=== PATIENT | male | born 1985 | race Caucasian/White ===

== ENCOUNTER 2025-01-28 11:49 | Emergency (ER) | payer MEDICAID, SELFPAY ==
--- NOTE | 2025-01-28 11:56 | HMH.EDGENADL ---
Discharge Plan Disposition Patient Disposition: Home, Self-Care Condition: Good Prescriptions Prescriptions: New amoxicillin-pot clavulanate 875-125 mg tablet 1 tab PO BID 5 Days Qty: 10 0RF ibuprofen 800 mg tablet 800 mg PO Q8H Qty: 30 0RF amoxicillin-pot clavulanate 875-125 mg tablet 1 tab PO BID 5 Days Qty: 10 0RF Referrals Follow up/Referrals: Emely Barahona, BEN [Referring, Dentistry] - See instructions Activity Restrictions/Add. Instructions Additional Instructions/Restrictions: Please return to the emergency department with any worsening signs or symptoms, please follow-up with PCP and dentist in the upcoming days. Please take your medication as prescribed. Please take antibiotic for 5 days twice daily with food, please utilize your ibuprofen as needed. Clinical Impressions Clinical Impression: Toothache, Dental caries Instructions Patient Instructions: DI for Dental Pain Print Language Print Language: Belarusian Discharge ED Provider: Earnest Wilson General Adult HPI <KENNETH Kate - Last Filed: 01/28/25 12:34> General Chief complaint: Dental/Oral Stated complaint: Toothache Time Seen by Provider: 01/28/25 11:51 Mode of Arrival: EMS Source of Information: Patient Limitations: No Limitations History of Present Illness HPI narrative: 39-year-old male presents to the emergency department via EMS for right-sided dental pain/tooth pain that been going on for the last 3 to 4 days, patient denies any fever chills chest pain shortness of breath nausea vomiting constipation diarrhea, patient is unsure of his past medical history, but does come from [facility] which is a assisted living[facility], patient denies any alcohol tobacco or drug use, initial triage vitals are unremarkable, patient is unsure if he has dental follow-up. Patient states that he would like 800 mg of ibuprofen because he states this helps with the pain and he does not have any at home. Please note that above description of symptoms, in this electronic medical record under categorization of recalled from ER triage doctor by RN are reflective of an initial nursing assessment, however, is not reflective of my full history and physical exam that was personally taken and clarified. Consequentially, this preceding description of symptoms, which may include the patient's categorized chief complaint in the EMR, do not reflect my personal clinical impression, and the ultimate description of history of present illness and patient stated complaints should be deferred to this section of the note. Unless stated otherwise or congruent with this section of the note, additional signs, symptoms, or incongruence should be interpreted as inaccurate with my clinical impression. Related Data Previous Rx's ?Medication ?Instructions ?Recorded amoxicillin 875 mg-potassium 1 tab PO BID 5 days #10 tabs 01/28/25 clavulanate 125 mg tablet amoxicillin 875 mg-potassium 1 tab PO BID 5 days #10 tabs 01/28/25 clavulanate 125 mg tablet ibuprofen 800 mg tablet 800 mg PO Q8H #30 tabs 01/28/25 Allergies Allergy/AdvReac Type Severity Reaction Status Date / Time No Known Allergies Allergy Verified 01/28/25 12:11 [facility] <KENNETH Kate - Last Filed: 01/28/25 12:34> [facility] Disclaimer: The information contained in this section may have been updated after the patient was seen, as this information can be updated by other users. Social History (Updated 01/28/25 @ 12:34 by KENNETH Kate) Smoking Status: Current every day smoker alcohol intake: never current occupational status: other Travel in the last 8 weeks?: None Have you lived/traveled outside [place] in past 30 days?: No Contact w/someone who lives/traveled outside [place] past 30 days?: No Exposure to someone with infectious disease in past 14 days?: No Do you have a fever (greater than 100.4 F or 38 C)?: No Have you tested positive for COVID-19?: No Exposed to someone with COVID-19 in past 14 days?: No Do you have a sore throat?: No Do you have a cough?: No Do you have any weakness?: No Do you have any diarrhea?: No Are you experiencing any unusual bleeding?: No Do you have any muscle aches/pain?: No Do you have any abdominal pain?: No Are you experiencing loss of taste or smell?: No <KENNETH Kate - Last Filed: 01/28/25 12:34> ROS Obtained: Yes All systems reviewed & no additional complaints except as documented Physical Exam <KENNETH Kate - Last Filed: 01/28/25 12:34> General General appearance: alert and in no apparent distress Head Head exam: atraumatic and normocephalic Eye Eye exam: Present PERRL and EOMI ENT ENT exam: Present normal exam, normal oropharynx, mucous membranes moist and other (Numerous dental caries, no obvious periapical or periodontal abscess of the amicable for drainage at this time.) Neck Neck exam: Present normal inspection Chest Chest inspection: Present normal inspection and symmetric chest wall rise Respiratory Respiratory exam: Present normal lung sounds bilaterally; Absent respiratory distress Cardiovascular Cardiovascular exam: Present regular rate and normal rhythm Abdominal Exam Abdominal exam: Present soft; Absent tenderness Extremities Exam Extremities exam: Present normal inspection Neurological Exam Neurological exam: Present alert and oriented X3 Psychiatric Psychiatric exam: Present normal affect Skin Skin exam: Present warm and dry Medical Decision Making <KENNETH Kate - Last Filed: 01/28/25 12:34> Medical Records Medical records reviewed: Yes I reviewed the patient's medical records. Screening: Per USPSTF and CDC recommendations, given the prevalence of disease in our region, it is our hospital?s policy to screen for HIV and viral Hepatitis for all patients aged 18 and over and those with ongoing risk factors. Murtaza Inquiry Pt receiving controlled substance: No Murtaza was queried for this patient: No Vital Signs: 01/28/25 11:59 01/28/25 12:30 Temperature 98.4 F 98.4 F Temperature Source Oral Oral Pulse Rate 66 Pulse Rate [Left Radial] 66 Respiratory Rate 15 16 Blood Pressure 118/76 Blood Pressure [Right Arm] 118/76 Blood Pressure Mean [Right Arm] 90 02 Sat by Pulse Oximetry 98 Oxygen Delivery Method Room Air Orders (Tests/Meds): ED MEDICATIONS Discontinued Medications Generic Name Dose Route Start Last Admin Trade Name Gabriella PRN Reason Stop Dose Admin Ibuprofen 800 mg 01/28/25 11:55 01/28/25 12:05 Ibuprofen 400 Mg Tablet PO 01/28/25 11:56 800 mg ONCE ONE Administration Lidocaine HCl 15 ml 01/28/25 11:55 01/28/25 12:05 Lidocaine 2% Viscous Gina 15ml Udc PO 01/28/25 11:56 15 ml ONCE ONE Administration ORDERS Category Date Time Status HIV Combo Stat Lab 01/28/25 12:12 Ordered Hepatitis C Ab Qual. W/ RFX Stat Lab 01/28/25 12:12 Ordered Medical Decision Narrative: 39-year-old male presents to the emergency department with right-sided dental pain, this been going on for 3 to 4 days, differential diagnose include but not limited to periapical abscess, periodontal abscess, dental caries, among others. I discussed patient case with attending patient Will give patient in 800 mg p.o. ibuprofen for pain, as well as dental ball, patient is otherwise well-appearing, no evidence of any facial cellulitis, no periodontal or periapical abscess to be amicable drainage upon my exam, patient has numerous dental caries, and would benefit from dental referral, will give patient dental referral/dental follow-up, patient voiced understanding agree with current treatment plan/discharge plan, patient will be prescribed 875 mg p.o, twice daily Augmentin, antibiotic prophylaxis for dental infection, patient will take for 5 days or until dental follow-up. Patient voiced understanding and agreement treatment plan/discharge plan, ED return precautions given to the patient. <Earnest Wilson MD - Last Filed: 01/28/25 13:53> Vital Signs: 01/28/25 11:59 01/28/25 12:30 Temperature 98.4 F 98.4 F Temperature Source Oral Oral Pulse Rate 66 Pulse Rate [Left Radial] 66 Respiratory Rate 15 16 Blood Pressure 118/76 Blood Pressure [Right Arm] 118/76 Blood Pressure Mean [Right Arm] 90 02 Sat by Pulse Oximetry 98 Oxygen Delivery Method Room Air Orders (Tests/Meds): ED MEDICATIONS Discontinued Medications Generic Name Dose Route Start Last Admin Trade Name Freq PRN Reason Stop Dose Admin Ibuprofen 800 mg 01/28/25 11:55 01/28/25 12:05 Ibuprofen 400 Mg Tablet PO 01/28/25 11:56 800 mg ONCE ONE Administration Lidocaine HCl 15 ml 01/28/25 11:55 01/28/25 12:05 Lidocaine 2% Viscous Gina 15ml Udc PO 01/28/25 11:56 15 ml ONCE ONE Administration ORDERS Category Date Time Status HIV Combo Stat Lab 01/28/25 12:12 Ordered Hepatitis C Ab Qual. W/ RFX Stat Lab 01/28/25 12:12 Ordered Medical Decision Narrative: 39-year-old male presents to the emergency department with right-sided dental pain, this been going on for 3 to 4 days, differential diagnose include but not limited to periapical abscess, periodontal abscess, dental caries, among others. I discussed patient case with attending patient Dr.Karsner Will give patient in 800 mg p.o. ibuprofen for pain, as well as dental ball, patient is otherwise well-appearing, no evidence of any facial cellulitis, no periodontal or periapical abscess to be amicable drainage upon my exam, patient has numerous dental caries, and would benefit from dental referral, will give patient dental referral/dental follow-up, patient voiced understanding agree with current treatment plan/discharge plan, patient will be prescribed 875 mg p.o, twice daily Augmentin, antibiotic prophylaxis for dental infection, patient will take for 5 days or until dental follow-up. Patient voiced understanding and agreement treatment plan/discharge plan, ED return precautions given to the patient. I was consulted by the [facility], and we discussed the complexity of the problems being addressed. I approve the treatment and management plan for this patient's care in the emergency department, thus performing a substantive portion of the medical decision making. Earnest Wilson MD Critical Care <KENNETH Kate - Last Filed: 01/28/25 12:34> Critical Care Time Critical Care Time: No
[2025-01-28 11:59] VITALS: BP 118/76; PULSE 66; RESP 15; TEMP 36.9; O2SAT 98; BMI 21.7
[2025-01-28] MEDS: IBUPROFEN 400 MG TABLET 800 MG PO (12:05)
[2025-01-28] MEDS: LIDOCAINE 2% VISCOUS SOL 15ML UDC 15 ML PO (12:05)
--- OUTSIDE RECORDS SUMMARY | 2025-01-28 12:25 | XMS_ITS | Clinical Summary ---
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 Name Role Phone Lucrecia Lozano Primary Care Physician [phone] Conditions or Problems Problem Name Problem Code Onset Date Status Entry Date Provider Comment Standard Description Annotate Body mass index (BMI) 20.0-20.9; adult Z68.20 (ICD-10-CM ) 07/12 Active 07/13 [facility] Body mass index [BMI] 20.0-20.9, adult Body mass index (BMI) 19 or less; adult Z68.1 (ICD-10-CM ) 01/11 Correction 01/20 [facility] Body mass index [BMI] 19.9 or less, adult Counseling for nutrition Z71.3 (ICD-10-CM ) 01/11 Inactive 01/20 [facility] Dietary counseling and surveillance Body mass index (BMI) 19 or less; adult Z68.1 (ICD-10-CM ) 01/11 Removed 01/20 [facility] Body mass index [BMI] 19.9 or less, adult Counseling for nutrition Z71.3 (ICD-10-CM ) 01/11 Inactive 01/20 [facility] Dietary counseling and surveillance Body mass index (BMI) 19 or less; adult Z68.1 (ICD-10-CM ) Correction [facility] Body mass index [BMI] 19.9 or less, adult Counseling for nutrition Z71.3 (ICD-10-CM ) 12/12 Inactive 12/12 [facility] 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 Dietary counseling and surveillance Unspecified superficial injury of right ring finger, sequela [id number] (SNOMED CT) 11/28 Active 11/28 [facility] 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 Superficial injury of finger Counseling for nutrition Z71.3 (ICD-10-CM ) 11/28 Inactive 11/28 [facility] 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 Dietary counseling and surveillance Counseling for nutrition Z71.3 (ICD-10-CM ) Inactive Lucrecia [place] PMHNP Dietary counseling and surveillance Body mass index (BMI) 19 or less; adult Z68.1 (ICD-10-CM ) Removed Lucrecia Selwyn PMHNP Body mass index [BMI] 19.9 or less, adult Body mass index (BMI) 21.0-21.9; adult Z68.21 (ICD-10-CM ) 10/25 Correction 10/26 [place] Selwyn PMHNP Body mass index [BMI] 21.0-21.9, adult Decreased body mass index 7568434 (SNOMED CT) 02/15 Correction 02/15 Lucrecia Selwyn PMHNP Decreased body mass index Weight loss 95200330 (SNOMED CT) 02/15 Active 02/15 Olga Reena DO Weight loss Decreased body mass index 2592652 (SNOMED CT) 02/15 Removed 02/15 Olga Reena DO Decreased body mass index Counseling for nutrition Z71.3 (ICD-10-CM ) 01/20 Inactive 01/20 Lucrecia [place] PMHNP Dietary counseling and surveillance Body mass index (BMI) 21.0-21.9; adult Z68.21 (ICD-10-CM ) 10/25 Removed 10/26 Lucrecia Selwyn PMHNP Body mass index [BMI] 21.0-21.9, adult Body mass index (BMI) 21.0-21.9; adult Z68.21 (ICD-10-CM ) 10/18 Correction 10/18 Lucrecia Samano PMHNP Body mass index [BMI] 21.0-21.9, adult Substance Abuse 70324918 (SNOMED CT) 10/26 Active 10/26 [facility] Depression 96295508 (SNOMED CT) 10/26 Active 10/26 Lucreciahaydee Samano HN Depressive disorder Anxiety Disorder 543333088 (SNOMED CT) 10/26 Active 10/26 Lucrecia Samano [facility] Anxiety disorder Body mass index (BMI) 21.0-21.9; adult Z68.21 (ICD-10-CM ) 10/18 Removed 10/18 Olga Reena DO Body mass index [BMI] 21.0-21.9, adult Body mass index (BMI) 21.0-21.9; adult Z68.21 (ICD-10-CM ) 10/18 Correction 10/18 Olga Reena DO Body mass index [BMI] 21.0-21.9, adult Body mass index (BMI) 21.0-21.9; adult Z68.21 (ICD-10-CM ) 10/18 Removed 10/18 Olga Reena DO Body mass index [BMI] 21.0-21.9, adult Counseling for nutrition Z71.3 (ICD-10-CM ) 10/18 Inactive 10/18 Olga Reena DO Dietary counseling and surveillance Body mass index (BMI) 22.0-22.9; adult Z68.22 (ICD-10-CM ) 07/26 Correction 07/26 Olga Reena DO Body mass index [BMI] 22.0-22.9, adult Weight loss 46036991 (SNOMED CT) 10/18 Active 10/18 Olga Reena DO Weight loss Counseling for nutrition Z71.3 (ICD-10-CM ) 07/26 Inactive 07/26 Shalonda Parada [facility] Dietary counseling and surveillance Body mass index (BMI) 22.0-22.9; adult Z68.22 (ICD-10-CM ) 07/26 Removed 07/26 Shalonda Ankit Randolphon [employer]OCIATE Body mass index [BMI] 22.0-22.9, adult Body mass index (BMI) 23.0-23.9; adult Z68.23 (ICD-10-CM ) Correction Shalonda Ankit Randolphon [employer]ER ASSOCIATE Body mass index [BMI] 23.0-23.9, adult Body mass index (BMI) 23.0-23.9; adult Z68.23 (ICD-10-CM ) Removed Olga Reena DO Body mass index [BMI] 23.0-23.9, adult Body mass index (BMI) 21.0-21.9; adult Z68.21 (ICD-10-CM ) Correction Olga Reena DO Body mass index [BMI] 21.0-21.9, adult Counseling for nutrition Z71.3 (ICD-10-CM ) Inactive Shalonda Ankit Randolphon [employer]IATE Dietary counseling and surveillance Body mass index (BMI) 21.0-21.9; adult Z68.21 (ICD-10-CM ) Removed Shalonda Ankit Randolphon FEEDER ASSOCIATE Body mass index [BMI] 21.0-21.9, adult Body mass index (BMI) 23.0-23.9; adult Z68.23 (ICD-10-CM ) 01/18 Correction 01/18 Shalonda G Karma [employer] ASS[employer]IATE Body mass index [BMI] 23.0-23.9, adult Body mass index (BMI) 23.0-23.9; adult Z68.23 (ICD-10-CM ) 01/18 Removed 01/18 Shalonda G Goldthwaite [employer]ER ASSOCIATE Body mass index [BMI] 23.0-23.9, adult Counseling for nutrition Z71.3 (ICD-10-CM ) 01/18 Inactive 01/18 Shalonda MARTINEZ Dietary counseling and surveillance Body mass index (BMI) 21.0-21.9; adult Z68.21 (ICD-10-CM ) 11/18 Correction 11/19 Shalonda MARTINEZ Body mass index [BMI] 21.0-21.9, adult Counseling for nutrition Z71.3 (ICD-10-CM ) 12/16 Inactive 12/17 Nirav Carvalho MD Dietary counseling and surveillance Counseling for nutrition Z71.3 (ICD-10-CM ) 11/18 Inactive 11/19 Nirav Carvalho MD Dietary counseling and surveillance Body mass index (BMI) 21.0-21.9; adult Z68.21 (ICD-10-CM ) 11/18 Removed 11/19 Nirav Carvalho MD Body mass index [BMI] 21.0-21.9, adult Body mass index (BMI) 21.0-21.9; adult Z68.21 (ICD-10-CM ) Correction Nirav Carvalho MD Body mass index [BMI] 21.0-21.9, adult Counseling for nutrition Z71.3 (ICD-10-CM ) 10/20 Inactive 10/21 Olga Reena DO Dietary counseling and surveillance Counseling for nutrition Z71.3 (ICD-10-CM ) 10/20 Inactive 10/20 Olga Reena DO Dietary counseling and surveillance Tobacco User 545253700 (SNOMED CT) 10/20 Active 10/20 Olga Reena DO Tobacco user Counseling for nutrition Z71.3 (ICD-10-CM ) 08/06 Inactive 08/06 Shalonda MARITNEZ Dietary counseling and surveillance Counseling for nutrition Z71.3 (ICD-10-CM ) Inactive Olga Reena DO Dietary counseling and surveillance Body mass index (BMI) 21.0-21.9; adult Z68.21 (ICD-10-CM ) Removed Olga Reena DO Body mass index [BMI] 21.0-21.9, adult Body mass index (BMI) 21.0-21.9; adult Z68.21 (ICD-10-CM ) 03/06 Correction 03/06 Olga Reena DO Body mass index [BMI] 21.0-21.9, adult Counseling for nutrition Z71.3 (ICD-10-CM ) 03/06 Inactive 03/06 Shalonda G Goldthwaite [employer]IATE Dietary counseling and surveillance Body mass index (BMI) 21.0-21.9; adult Z68.21 (ICD-10-CM ) 03/06 Removed 03/06 Shalonda G Goldthwaite FEEDER ASSOCIATE Body mass index [BMI] 21.0-21.9, adult Body mass index (BMI) 22.0-22.9; adult Z68.22 (ICD-10-CM ) 11/28 Correction 11/28 Shalonda G Karma FEEDER ASSOCIATE Body mass index [BMI] 22.0-22.9, adult Counseling for nutrition Z71.3 (ICD-10-CM ) 11/28 Inactive 11/28 Shalonda G Karma FE[employer]ER ASSOCIATE Dietary counseling and surveillance Body mass index (BMI) 22.0-22.9; adult Z68.22 (ICD-10-CM ) 11/28 Removed 11/28 Shalonda G Karma FEEDER ASSOCIATE Body mass index [BMI] 22.0-22.9, adult Body mass index (BMI) 22.0-22.9; adult Z68.22 (ICD-10-CM ) 10/21 Correction 10/21 Shalonda G Karma FEEDER ASSOCIATE Body mass index [BMI] 22.0-22.9, adult Body mass index (BMI) 22.0-22.9; adult Z68.22 (ICD-10-CM ) 10/21 Removed 10/21 Olga Reena DO Body mass index [BMI] 22.0-22.9, adult Marijuana abuse 64208549 (SNOMED CT) 10/21 Active 10/21 Olga Reena DO Harmful pattern of use of cannabis Alcohol use 809687 (SNOMED CT) 10/21 Active 10/21 Olga Reena DO Current drinker Body mass index (BMI) 23.0-23.9; adult Z68.23 (ICD-10-CM ) 08/07 Correction 08/07 Olga Reena DO Body mass index [BMI] 23.0-23.9, adult Counseling for nutrition Z71.3 (ICD-10-CM ) 08/07 Inactive 08/07 Shalonda MARTINEZ Dietary counseling and surveillance Body mass index (BMI) 23.0-23.9; adult Z68.23 (ICD-10-CM ) 08/07 Removed 08/07 Shalonda NAVARROP Body mass index [BMI] 23.0-23.9, adult Body mass index (BMI) 23.0-23.9; adult Z68.23 (ICD-10-CM ) Correction Shalonda MARTINEZ Body mass index [BMI] 23.0-23.9, adult Body mass index (BMI) 23.0-23.9; adult Z68.23 (ICD-10-CM ) Removed Nabeelderrell Castropat [place] Body mass index [BMI] 23.0-23.9, adult Body mass index (BMI) 23.0-23.9; adult Z68.23 (ICD-10-CM ) Correction Nabeel Donovan APRN Body mass index [BMI] 23.0-23.9, adult Influenza vaccination given [id number] (SNOMED CT) Active Nabeel Donovan 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 Medication given Body mass index (BMI) 23.0-23.9; adult Z68.23 (ICD-10-CM ) Removed Shaila Lopez MA Body mass index [BMI] 23.0-23.9, adult Body mass index (BMI) 21.0-21.9; adult Z68.21 (ICD-10-CM ) 02/07 Correction 02/07 Shaila Martinezra [facility] Body mass index [BMI] 21.0-21.9, adult Counseling for nutrition Z71.3 (ICD-10-CM ) 02/07 Inactive 02/07 Shalonda Ankit Parada [employer] Dietary counseling and surveillance Body mass index (BMI) 21.0-21.9; adult Z68.21 (ICD-10-CM ) 02/07 Removed 02/07 Shalonda G Goldthwaite FEEDER ASSOCIATE Body mass index [BMI] 21.0-21.9, adult Body mass index (BMI) 21.0-21.9; adult Z68.21 (ICD-10-CM ) 10/24 Correction 10/24 Shalonda Ankit Parada FEEDER ASSOCIATE Body mass index [BMI] 21.0-21.9, adult Body mass index (BMI) 21.0-21.9; adult Z68.21 (ICD-10-CM ) 10/24 Removed 10/24 Olga Reena DO Body mass index [BMI] 21.0-21.9, adult Body mass index (BMI) 21.0-21.9; adult Z68.21 (ICD-10-CM ) 10/24 Correction 10/24 Olga Reena DO Body mass index [BMI] 21.0-21.9, adult Body mass index (BMI) 21.0-21.9; adult Z68.21 (ICD-10-CM ) 10/24 Removed 10/24 Olga Reena DO Body mass index [BMI] 21.0-21.9, adult Counseling for nutrition Z71.3 (ICD-10-CM ) 10/24 Inactive 10/24 Olga Reena DO Dietary counseling and surveillance Body mass index (BMI) 24.0-24.9; adult Z68.24 (ICD-10-CM ) 08/02 Correction 08/02 Olga Reena DO Body mass index [BMI] 24.0-24.9, adult Body mass index (BMI) 24.0-24.9; adult Z68.24 (ICD-10-CM ) 08/02 Removed 08/02 Shalonda G Goldthwaite FEEDER ASSOCIATE Body mass index [BMI] 24.0-24.9, adult Counseling for nutrition Z71.3 (ICD-10-CM ) 08/02 Inactive 08/02 Shalonda G Goldthwaite FEEDER ASSOCIATE Dietary counseling and surveillance Body mass index (BMI) 25.0-25.9; adult Z68.25 (ICD-10-CM ) Correction Shalonda G Goldthwaite FEEDER ASSOCIATE Body mass index [BMI] 25.0-25.9, adult Flu vaccine 36011625 (SNOMED CT) Inactive Esteban Coombs RN Administration of influenza vaccine Counseling for nutrition Z71.3 (ICD-10-CM ) Inactive Radha Edmondson DO Dietary counseling and surveillance Body mass index (BMI) 25.0-25.9; adult Z68.25 (ICD-10-CM ) Removed Radha Edmondson DO Body mass index [BMI] 25.0-25.9, adult Body mass index (BMI) 25.0-25.9; adult Z68.25 (ICD-10-CM ) 03/02 Correction 03/02 aRdha Edmondson DO Body mass index [BMI] 25.0-25.9, adult Counseling for nutrition Z71.3 (ICD-10-CM ) 03/02 Inactive 03/02 Shalonda G Karma FE[employer]ER ASSOCIATE Dietary counseling and surveillance Body mass index (BMI) 25.0-25.9; adult Z68.25 (ICD-10-CM ) 03/02 Removed 03/02 Shalonda G Goldthwaite FEEDER ASSOCIATE Body mass index [BMI] 25.0-25.9, adult Body mass index (BMI) 25.0-25.9; adult Z68.25 (ICD-10-CM ) 11/03 Correction 11/03 Shalonda G Karma FEEDER ASSOCIATE Body mass index [BMI] 25.0-25.9, adult Counseling for nutrition Z71.3 (ICD-10-CM ) 11/03 Inactive 11/03 Shalonda G Goldthwaite FEEDER ASSOCIATE Dietary counseling and surveillance Body mass index (BMI) 25.0-25.9; adult Z68.25 (ICD-10-CM ) 11/03 Removed 11/03 Shalonda G Karma FEEDER ASSOCIATE Body mass index [BMI] 25.0-25.9, adult Body mass index (BMI) 25.0-25.9; adult Z68.25 (ICD-10-CM ) 10/09 Correction 10/09 Shalonda G Goldthwaite FEEDER ASSOCIATE Body mass index [BMI] 25.0-25.9, adult Depression 98214200 (SNOMED CT) 11/03 Active 11/03 Shalonda G Goldthwaite FEEDER ASSOCIATE Depressive disorder Body mass index (BMI) 25.0-25.9; adult Z68.25 (ICD-10-CM ) 10/09 Removed 10/09 Ye Pringle DO Body mass index [BMI] 25.0-25.9, adult Body mass index (BMI) 28.0-28.9; adult Z68.28 (ICD-10-CM ) 08/14 Correction 08/14 Ye Pringle DO Body mass index [BMI] 28.0-28.9, adult Hypertensio n 30586894 (SNOMED CT) 10/09 Active 10/09 Ye Pringle DO Hypertensive disorder Counseling for nutrition Z71.3 (ICD-10-CM ) 08/14 Inactive 08/14 Shalonda G Karma FE[employer]ER ASSOCIATE Dietary counseling and surveillance Body mass index (BMI) 28.0-28.9; adult Z68.28 (ICD-10-CM ) 08/14 Removed 08/14 Shalonda G Karma FEEDER ASSOCIATE Body mass index [BMI] 28.0-28.9, adult Body mass index (BMI) 26.0-26.9; adult Z68.26 (ICD-10-CM ) 08/13 Correction 08/13 Shalonda G Karma FEEDER ASSOCIATE Body mass index [BMI] 26.0-26.9, adult Counseling for nutrition Z71.3 (ICD-10-CM ) 07/10 Inactive 07/10 Kimberly Jean APRN Dietary counseling and surveillance Counseling for nutrition Z71.3 (ICD-10-CM ) 08/13 Inactive 08/13 Shalonda G Karma [employer]OCIATE Dietary counseling and surveillance Body mass index (BMI) 26.0-26.9; adult Z68.26 (ICD-10-CM ) 08/13 Removed 08/13 Shalonda G Karma FEEDER ASSOCIATE Body mass index [BMI] 26.0-26.9, adult Body mass index (BMI) 23.0-23.9; adult Z68.23 (ICD-10-CM ) 03/20 Correction 03/20 Shalonda G Karma FEEDER ASSOCIATE Body mass index [BMI] 23.0-23.9, adult Counseling for nutrition Z71.3 (ICD-10-CM ) 03/20 Inactive 03/20 Shalonda G Karma FEEDER ASSOCIATE Dietary counseling and surveillance Body mass index (BMI) 23.0-23.9; adult Z68.23 (ICD-10-CM ) 03/20 Removed 03/20 Shalonda G Karma FE[employer]ER ASSOCIATE Body mass index [BMI] 23.0-23.9, adult Body mass index (BMI) 24.0-24.9; adult Z68.24 (ICD-10-CM ) 12/19 Correction 12/19 Shalonda G Karma [employer]ER ASSOCIATE Body mass index [BMI] 24.0-24.9, adult Counseling for nutrition Z71.3 (ICD-10-CM ) 12/19 Inactive 12/19 Shalonda G Goldthwaite FE[employer]ER ASSOCIATE Dietary counseling and surveillance Body mass index (BMI) 24.0-24.9; adult Z68.24 (ICD-10-CM ) 12/19 Removed 12/19 Shalonda G Goldthwaite FEEDER ASSOCIATE Body mass index [BMI] 24.0-24.9, adult Body mass index (BMI) 24.0-24.9; adult Z68.24 (ICD-10-CM ) 12/12 Correction 12/12 Shalonda Ankit Karma NAVARROP Body mass index [BMI] 24.0-24.9, adult Vitamin D deficiency 09163641 (SNOMED CT) 12/12 Active 12/12 Cain Patel MD Vitamin D deficiency Body mass index (BMI) 24.0-24.9; adult Z68.24 (ICD-10-CM ) 12/12 Removed 12/12 Cain Patel MD Body mass index [BMI] 24.0-24.9, adult Body mass index (BMI) 22.0-22.9; adult Z68.22 (ICD-10-CM ) 09/12 Correction 09/12 Cain Patel MD Body mass index [BMI] 22.0-22.9, adult Body mass index (BMI) 22.0-22.9; adult Z68.22 (ICD-10-CM ) 09/12 Removed 09/12 Cain Patel MD Body mass index [BMI] 22.0-22.9, adult Body mass index (BMI) 21.0-21.9; adult Z68.21 (ICD-10-CM ) 08/16 Correction 08/16 Cain Patel MD Body mass index [BMI] 21.0-21.9, adult Counseling for nutrition Z71.3 (ICD-10-CM ) 08/16 Inactive 08/16 Shalonda NAVARROP Dietary counseling and surveillance Body mass index (BMI) 21.0-21.9; adult Z68.21 (ICD-10-CM ) 08/16 Removed 08/16 Shalonda Ankit Randolphon [employer] Body mass index [BMI] 21.0-21.9, adult Body mass index (BMI) 20.0-20.9; adult Z68.20 (ICD-10-CM ) 08/16 Correction 08/16 Shalonda Ankit Randolphon [employer]ER ASSOCIATE Body mass index [BMI] 20.0-20.9, adult Body mass index (BMI) 20.0-20.9; adult Z68.20 (ICD-10-CM ) 08/16 Removed 08/16 Ladonna Kwok MD Body mass index [BMI] 20.0-20.9, adult Physical exam 1488082 (SNOMED CT) 08/16 Inactive 08/16 Ladonna Kwok MD Physical examination Counseling for nutrition Z71.3 (ICD-10-CM ) 08/16 Inactive 08/16 Ladonna Kwok MD Dietary counseling and surveillance Body mass index (BMI) 20.0-20.9; adult Z68.20 (ICD-10-CM ) 07/02 Correction 07/02 Ladonna Kwok MD Body mass index [BMI] 20.0-20.9, adult Counseling for nutrition Z71.3 (ICD-10-CM ) 07/02 Inactive 07/02 Shalonda Randolphon [employer]IATE Dietary counseling and surveillance Body mass index (BMI) 20.0-20.9; adult Z68.20 (ICD-10-CM ) 07/02 Removed 07/02 Shalonda G Karma [employer]OCIATE Body mass index [BMI] 20.0-20.9, adult Body mass index (BMI) 21.0-21.9; adult Z68.21 (ICD-10-CM ) 12/24 Correction 12/24 Shalonda G Karma [employer]ER ASS[employer]IATE Body mass index [BMI] 21.0-21.9, adult Body mass index (BMI) 21.0-21.9; adult Z68.21 (ICD-10-CM ) 12/24 Removed 12/24 Alva Dee APRN Body mass index [BMI] 21.0-21.9, adult Body mass index (BMI) 21.0-21.9; adult Z68.21 (ICD-10-CM ) 12/06 Correction 12/06 Alva Dee APRN Body mass index [BMI] 21.0-21.9, adult Counseling for nutrition Z71.3 (ICD-10-CM ) 12/06 Inactive 12/06 Shalonda G Karma [employer] Dietary counseling and surveillance Body mass index (BMI) 21.0-21.9; adult Z68.21 (ICD-10-CM ) 12/06 Removed 12/06 Shalonda MARTINEZ Body mass index [BMI] 21.0-21.9, adult Acute gouty arthropathy - ? OF 475960592 (SNOMED CT) 12/10 Resolved 12/10 Madina Munoz APRN Gouty arthropathy Acute gouty arthropathy - ? OF 360244275 (SNOMED CT) 12/10 Removed 12/10 Madina Munoz APRN Gouty arthropathy Seizure disorder 436821980 (SNOMED CT) Active Madina Munoz APRN Seizure disorder Myocardial infarction, anterior wall - HX OF 64977617 (SNOMED CT) Active Madina Munoz APRN Myocardial infarction Hx of CVA - R HEMIPARESIS 103993370 (SNOMED CT) Active Madina Munoz APRN History of cerebrovascular accident Other and unspecified mitral valve diseases 58752098 (SNOMED CT) Active Madina Munoz APRN Mitral valve disorder ELEVATED BP READING WITHOUT DX HYPERTENSIO N R03.0 (ICD-10-CM ) 07/19 Resolved 07/19 Madina Munoz APRN Elevated blood-pressure reading, without diagnosis of hypertension KNEE PAIN, RIGHT 85661811 (SNOMED CT) 08/03 Resolved 08/03 Madina Munoz APRN Knee pain ABDOMINAL PAIN 33874054 (SNOMED CT) 08/23 Resolved 08/23 Madina Munoz APRN Abdominal pain DIARRHEA 90830920 (SNOMED CT) 08/23 Resolved 08/23 Madina Munoz APRN Diarrhea Cardiomyopa thy 68993564 (SNOMED CT) 08/23 Active 08/23 Madina Munoz APRN Cardiomyopathy Drug abuse, hx of 780884551 (SNOMED CT) 08/23 Active 08/23 Madina Munoz APRN History of drug abuse ENCOUNTERS UNSPECIFIED ADMINISTRAT HAIDER PURPOSE Z02.89 (ICD-10-CM ) 02/06 Resolved 02/06 Madina Munoz APRN Encounter for other administrative examinations Tobacco abuse 01126085 (SNOMED CT) Active Madina Munoz APRN Tobacco dependence syndrome Anxiety 654063601 (SNOMED CT) Active Merlin Hernandez MD Anxiety disorder ENCOUNTERS UNSPECIFIED ADMINISTRAT HAIDER PURPOSE Z02.89 (ICD-10-CM ) 02/06 Removed 02/06 Merlin Hernandez MD Encounter for other administrative examinations ANOXIC BRAIN DAMAGE 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 (SNOMED CT) 02/06 Active 02/06 Merlin Hernandez MD Anoxic encephalopathy DRUG ABUSE 96830283 (SNOMED CT) 08/23 Inactive 08/23 Merlin Hernandez MD Drug abuse HEART MURMUR, SYSTOLIC 01744447 (SNOMED CT) 08/23 Inactive 08/23 Merlin Hernandez MD Systolic murmur DIARRHEA 21906617 (SNOMED CT) 08/23 Removed 08/23 Merlin Hernandez MD Diarrhea ABDOMINAL PAIN 91512645 (SNOMED CT) 08/23 Removed 08/23 Merlin Hernandez MD Abdominal pain KNEE PAIN, RIGHT 82522319 (SNOMED CT) 08/03 Removed 08/03 Madina Munoz APRN Knee pain CERVICAL MUSCLE STRAIN 932572619 (SNOMED CT) 07/19 Resolved 07/19 Madina Munoz APRN Strain of neck muscle CERVICAL MUSCLE STRAIN 128710645 (SNOMED CT) 07/19 Removed 07/19 Madina Munoz APRN Strain of neck muscle ELEVATED BP READING WITHOUT DX HYPERTENSIO N R03.0 (ICD-10-CM ) 07/19 Removed 07/19 Madina Munoz APRN Elevated blood-pressure reading, without diagnosis of hypertension Medications Medication Instructions Start Date Stop Date Generic Name NDC Provider IBU 800 MG TABS Take 1 tablet by mouth every eight hours as directed for 10 days for DENTAL PAIN. ibuprofen [id number] Gisell Diana on DMD RA VITAMIN C 250 MG TABS Take 1 tablet by mouth single dose ascorbic acid (vitamin c) 56269076580 [facility] 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 LISINOPRIL 10 MG TABS Take 1 tablet by mouth once a day TAKE ONE TABLET BY MOUTH DAILY lisinopril 56492238490 [facility] 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 OMEPRAZOLE 20 MG CPDR Take 1 capsule by mouth once a day 11/28 omeprazole 88871620552 [facility] 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 CARVEDILOL 25 MG TABS Take 1 tablet by mouth twice a day TAKE ONE TABLET BY MOUTH TWICE A DAY carvedilol 30921055948 [facility] 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 ASPIRIN LOW DOSE 81 MG TBEC Take 1 tablet by mouth once a day aspirin 41900407520 [facility] 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 FLUOXETINE HCL 20 MG CAPS Take 1 capsule by mouth once a day 08/21 fluoxetine 58584079227 Lucrecia Samano PMHNP MIRTAZAPINE 45 MG TABS Take 1 tablet by mouth at bedtime mirtazapine 85001480087 Lucrecia Samano PMHNP FLUOXETINE HCL 20 MG CAPS Take 1 capsule by mouth once a day 07/19 fluoxetine 46783590823 Lucreciabandar Samano PMHNP MIRTAZAPINE 45 MG TABS TAKE ONE TABLET BY MOUTH AT BEDTIME mirtazapine 52694250391 Lucrecia Samano PMHNP OMEPRAZOLE 20 MG CPDR Take 1 capsule by mouth once a day omeprazole 81777859904 Olga Reena DO LISINOPRIL 2.5 MG TABS TAKE ONE TABLET BY MOUTH DAILY lisinopril 66184599458 Olga Reena DO MIRTAZAPINE 45 MG TABS Take 1 tablet by mouth at bedtime 01/14 mirtazapine 19657136503 Nona Hayes 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 BCADM MIRTAZAPINE 45 MG TABS TAKE ONE TABLET BY MOUTH AT BEDTIME mirtazapine 52443254089 Lucreciabandar Samano PMHNP MIRTAZAPINE 45 MG TABS Take 1 tablet by mouth at bedtime mirtazapine 33150020082 Lucrecia Samano PMHNP FLUOXETINE HCL 20 MG CAPS Take 1 capsule by mouth once a day fluoxetine 97226701902 Lucrecia Samano PMHNP LISINOPRIL 2.5 MG TABS TAKE ONE TABLET BY MOUTH DAILY lisinopril 03990716852 Olga Reena DO FLUOXETINE HCL 20 MG CAPS Take 1 capsule by mouth once a day 01/21 fluoxetine 91359136255 Shalonda Parada FEEDER ASSOCIATE LISINOPRIL 2.5 MG TABS Take 1 tablet by mouth once a day 08/24 lisinopril 13531507108 Diana Ny 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 LISINOPRIL 2.5 MG TABS TAKE ONE TABLET BY MOUTH DAILY lisinopril 79578445362 Olga Reena DO LISINOPRIL 2.5 MG TABS Take 1 tablet by mouth once a day lisinopril 94188719320 Olga Reena DO LISINOPRIL 2.5 MG TABS Take 1 tablet by mouth once a day lisinopril 15378231396 Clara Ishan NE FLUOXETINE HCL 20 MG CAPS Take 1 capsule by mouth once a day 10/09 fluoxetine 39656439626 Shalonda Parada FEEDER ASSOCIATE FLUOXETINE HCL 20 MG CAPS Take 1 capsule by mouth once a day 07/17 fluoxetine 93867086390 Shalonda Parada FEEDER ASSOCIATE MIRTAZAPINE 45 MG TABS Take 1 tablet by mouth at bedtime mirtazapine 44224871203 Shalonda Parada FEEDER ASSOCIATE LISINOPRIL 2.5 MG TABS Take 1 tablet by mouth once a day lisinopril 33104575967 Alva Benjamin APRN MIRTAZAPINE 45 MG TABS Take 1 tablet by mouth every night 01/15 mirtazapine 29329664112 Nirav Carvalho MD BUSPIRONE HCL 5 MG TABS Take 1 tablet by mouth twice a day for anxiety 12/16 buspirone 99075214099 Nirav Carvalho MD MIRTAZAPINE 45 MG TABS 11/18 mirtazapine 38588776244 Emily Joel MA MIRTAZAPINE 45 MG TABS Take 1 tablet by mouth every night 12/18 mirtazapine 82875568256 Nirav Carvalho MD BUSPIRONE HCL 5 MG TABS Take 1 tablet by mouth twice a day for anxiety 12/18 buspirone 76779254630 Nirav Carvalho MD MIRTAZAPINE 45 MG TABS mirtazapine 04039703916 Emily Joel MA FLUOXETINE HCL 20 MG CAPS Take 1 capsule by mouth twice a day fluoxetine [id number] Olga Reena DO CARVEDILOL 25 MG TABS Take 1 tablet by mouth twice a day TAKE ONE TABLET BY MOUTH TWICE A DAY carvedilol [id number] Olga Reena DO ASPIRIN EC 81 MG TBEC Take 1 tablet by mouth once a day aspirin [id number] Olga Reena DO calcium citrate-vitamin D3 250 mg-5 mcg (200 unit) tablet Take 1 tablet by mouth once a day 10/20 calcium citrate-vitamin d3 [id number] Radha Carr MA FLUOXETINE HCL 20 MG CAPS Take 1 capsule by mouth twice a day 10/22 fluoxetine [id number] Michael Bang APRN MIRTAZAPINE 45 MG TABS Take 1 tablet by mouth every night 10/22 mirtazapine [id number] Michael Bang APRN CARVEDILOL 25 MG TABS TAKE ONE TABLET BY MOUTH TWICE A DAY 08/25 carvedilol [id number] 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 CARVEDILOL 25 MG TABS Take 1 tablet by mouth twice a day TAKE ONE TABLET BY MOUTH TWICE A DAY carvedilol [id number] Salome Moya 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 CARVEDILOL 25 MG TABS TAKE ONE TABLET BY MOUTH TWICE A DAY carvedilol [id number] Olga Reena DO LISINOPRIL 2.5 MG TABS Take 1 tablet by mouth once a day lisinopril [id number] Olga Reena DO calcium citrate-vitamin D3 250 mg-5 mcg (200 unit) tablet Take 1 tablet by mouth once a day calcium citrate-vitamin d3 87743601884 Radha Carr MA VITAMIN C 250 MG TABS Take 1 tablet by mouth single dose ascorbic acid (vitamin c) 44239066148 Radha Carr MA CARVEDILOL 25 MG TABS TAKE ONE TABLET BY MOUTH TWICE A DAY 07/28 carvedilol 22490169844 Jennifer Aguero APRN LISINOPRIL 2.5 MG TABS Take 1 tablet by mouth once a day lisinopril 17801587648 Jennifer Laci BLANKENSHIPN MIRTAZAPINE 45 MG TABS Take 1 tablet by mouth every night mirtazapine 31279866419 Shalonda MARTINEZ CARVEDILOL 25 MG TABS Take 1 tablet by mouth twice a day 11/18 carvedilol 71919059761 Jennifer Aguero APRN VITAMIN D 50 MCG (2000 UT) TABS Take 1 tablet by mouth once a day cholecalciferol (vitamin d3) 46843214114 Jennifer Aguero APRN FLUOXETINE HCL 20 MG CAPS Take 1 capsule by mouth twice a day fluoxetine 50101174570 Shalonda MARTINEZ ASPIRIN EC 81 MG TBEC Take 1 tablet by mouth once a day aspirin 63931317077 Jennifer Laci BLANKENSHIPN KEPPRA 750 MG TABS Take 1 tablet by mouth twice a day levetiracetam 46172146343 Jennifer Gregoriojay 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 CARVEDILOL 25 MG TABS TAKE ONE TABLET BY MOUTH TWICE A DAY carvedilol 05928408387 Olga Reena DO MIRTAZAPINE 30 MG TABS Take 1 at bedtime MIRTAZAPINE 47162308262 Shaila Lopez MA MIRTAZAPINE 45 MG TABS Take 1 at bedtime. Please disregard rx for 30 mg. MIRTAZAPINE 81060067966 Shalonda MARTINEZ FLUOXETINE HCL 20 MG CAPS TAKE ONE CAPSULE BY MOUTH TWICE A DAY FLUOXETINE HCL 19703279616 Shalonda MARTINEZ MEGESTROL ACETATE 20 MG TABS take one tablet by mouth twice a day 0 MEGESTROL ACETATE 34063501713 Emma Nieto RMA PROZAC 20 MG CAPS Take 1 twice a day FLUOXETINE HCL 60382937963 Shalonda MARTINEZ LISINOPRIL 2.5 MG TABS TAKE ONE TABLET BY MOUTH DAILY LISINOPRIL 89110204478 Olga Reena DO KEPPRA 750 MG TABS TAKE ONE TABLET BY MOUTH TWICE A DAY LEVETIRACETAM 00690909609 Kimberly Jean APRN PROZAC 20 MG CAPS TAKE 1 CAPSULE BY MOUTH EVERY MORNINGfor 7 days then increase to 2 daily. FLUOXETINE HCL 89911078067 Shalonda MARTINEZ PAROXETINE HCL 40 MG TABS TAKE 1 TABLET BY MOUTH ONCE A DAY 08/13 PAROXETINE HCL 82304551549 Radha Carr MA MIRTAZAPINE 30 MG TABS Take 1 at bedtime MIRTAZAPINE 81785876812 Shalonda MARTINEZ VITAMIN D 50 MCG (1999 UT) TABS TAKE 1 TABLET BY MOUTH ONCE A DAY CHOLECALCIFEROL 04539527228 Kimberly Jean APRN TIZANIDINE HCL 4 MG CAPS Take 1 tablet by mouth daily 12/12 TIZANIDINE HCL 57710293451 Cain Patel MD BACLOFEN 10 MG TABS TAKE 1 TABLET 2 TIMES DAILY NEEDED FOR MUSCLES 12/12 BACLOFEN 52454783723 Cain Patel MD MIRTAZAPINE 45 MG TABLET TAKE ONE TABLET BY MOUTH EVERY NIGHT AT BEDTIME MIRTAZAPINE 78657741647 Shalonda MARTINEZ KEPPRA 750 MG TABS TAKE ONE TABLET BY MOUTH TWICE A DAY LEVETIRACETAM 99705801065 Kimberly Bishop [place] LISINOPRIL 2.5 MG TABS TAKE ONE TABLET BY MOUTH DAILY LISINOPRIL 48051544136 Kimberly Hurtadobing [place] CARVEDILOL 25 MG TABS TAKE ONE TABLET BY MOUTH TWICE A DAY CARVEDILOL 21680389450 Nabeel Donovan MARISA MEGESTROL ACETATE 20 MG TABS take one tablet by mouth twice a day MEGESTROL ACETATE 37057510240 Shalonda Ankit Karma MARTINEZ TIZANIDINE HCL 4 MG CAPS Take 1 tablet by mouth daily TIZANIDINE HCL 41465010996 Cain Patel MD INDOMETHACIN 25 MG CAPS TAKE 2 TABLETS BY MOUTH EVERY 8 HOURS x 5-7 DAYS NEEDED 07/25 INDOMETHACIN 68676980410 Madina Munoz APRN BACLOFEN 10 MG TABS TAKE 1 TABLET 2 TIMES DAILY NEEDED FOR MUSCLES BACLOFEN 28564162332 Cain Patel MD ASPIR-LOW 81 MG ORAL TABLET DELAYED RELEASE TAKE 1 TABLET BY MOUTH 1 TIME A DAY ASPIRIN 87625014709 Cain Patel MD INDOMETHACIN 25 MG CAPS TAKE 2 TABLETS BY MOUTH EVERY 8 HOURS x 5-7 DAYS NEEDED INDOMETHACIN 53992262868 Madina Munoz APRN CHANTIX CONTINUING MONTH MICHELLE 1 MG ORAL TABLET TAKE 1 TABLET TWICE A DAY 12/01 VARENICLINE TARTRATE 62420686142 Cristela Teresa APRN KLONOPIN 1 MG TABS TAKE 1 TABLET BY MOUTH 2 TIMES A DAY FOR PANIC/ANXIETY 09/08 CLONAZEPAM 96057213528 Cristela Teresa APRN REMERON 45 MG ORAL TABLET TAKE 1 TABLET AT BEDTIME MIRTAZAPINE 96570808831 Shalonda G Karma MARTINEZ KLONOPIN 1 MG TABS TAKE 1 TABLET BY MOUTH 2 TIMES A DAY FOR PANIC/ANXIETY CLONAZEPAM 44176234038 Cristela Teresa APRN PAROXETINE HCL 40 MG TABS TAKE 1 TABLET BY MOUTH ONCE A DAY 07/09 PAROXETINE HCL 58391237012 Cristela Brii [place] HYDROXYZINE HCL 25 MG TABS TAKE 1 TABLET BY MOUTH EVERY 8 HOURS NEEDED FOR ANXIETY 07/09 HYDROXYZINE HCL 52194004899 Cristela Teresa 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 PAROXETINE HCL 40 MG TABS TAKE 1 TABLET BY MOUTH ONCE A DAY PAROXETINE HCL 74438822941 Shalonda Parada FEEDER ASSOCIATE CHANTIX STARTING MONTH MICHELLE 0.5 MG X 11 & 1 MG X 42 ORAL TABLET USE DIRECTED 07/18 VARENICLINE TARTRATE 56088498507 Madina Munoz APRN CHANTIX CONTINUING MONTH MICHELLE 1 MG ORAL TABLET TAKE 1 TABLET TWICE A DAY VARENICLINE TARTRATE 87058504941 Madina Munoz APRN HYDROXYZINE HCL 25 MG TABS TAKE 1 TABLET BY MOUTH EVERY 8 HOURS NEEDED FOR ANXIETY HYDROXYZINE HCL 34935993052 Madina Munoz APRN PANTOPRAZOLE SODIUM 40 MG TBEC TAKE 1 BY MOUTH EACH DAY PANTOPRAZOLE SODIUM 21251616719 Madina Munoz APRN DICLOFENAC SODIUM 75 MG TBEC TAKE 1 TAB BY MOUTH 2 TIMES A DAY NEEDED FOR PAIN DICLOFENAC SODIUM 14540744317 Madina Munoz APRN CIPROFLOXACIN HCL 500 MG TABS TAKE 1 TABLET BY MOUTH 2 TIMES A DAY x 5 days CIPROFLOXACIN HCL 37366570587 Madina Munoz APRN KLONOPIN 1 MG TABS TAKE 1 TABLET BY MOUTH 3 TIMES A DAY FOR PANIC/ANXIETY CLONAZEPAM 45545933530 Cristela Teresa APRN CHANTIX STARTING MONTH MICHELLE 0.5 MG X 11 & 1 MG X 42 ORAL TABLET USE DIRECTED 07/18 VARENICLINE TARTRATE 03192236853 Madina Munoz APRN CHANTIX CONTINUING MONTH MICHELLE 1 MG ORAL TABLET TAKE 1 TABLET TWICE A DAY VARENICLINE TARTRATE 00232326549 Madina Munoz APRN KLONOPIN 1 MG TABS TAKE 1 TABLET BY MOUTH 3 TIMES A DAY FOR PANIC/ANXIETY CLONAZEPAM 14577678562 Cristela Teresa APRN REMERON 30 MG TABS TAKE 1 TABLET BY MOUTH AT BEDTIME MIRTAZAPINE 05420234720 Cristela Teresa APRN KLONOPIN 1 MG TABS TAKE 1 TABLET BY MOUTH 2 TIMES A DAY FOR PANIC/ANXIETY CLONAZEPAM 04940360913 Cristela Teresa 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 HYDROXYZINE HCL 25 MG TABS 1 tab by mouth every 8 hours as needed for anxiety. 03/04 HYDROXYZINE HCL 03088709386 Cristela Teresa APRN QUETIAPINE FUMARATE 200 MG TABS ONE PO QHS. 03/04 QUETIAPINE FUMARATE 64773998372 Cristela Teresa APRN KEPPRA 750 MG TABS 1 tab by mouth twice daily LEVETIRACETAM 89979619416 Ye Pringle DO PAROXETINE HCL 40 MG TABS TAKE 1 TABLET BY MOUTH ONCE A DAY PAROXETINE HCL 08579679586 Cristela Teresa APRN PHENYTOIN SODIUM EXTENDED 100 MG CAPS 1 cap by mouth every 8 hours 07/11 PHENYTOIN SODIUM EXTENDED 45511329761 Merlin Hernandez MD ASPIR-LOW 81 MG ORAL TABLET DELAYED RELEASE TAKE 1 TABLET BY MOUTH 1 TIME A DAY ASPIRIN 89483549469 Madina Alexander 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 DICLOFENAC SODIUM 75 MG TBEC TAKE 1 TAB BY MOUTH 2 TIMES A DAY NEEDED FOR PAIN DICLOFENAC SODIUM 02207810985 Merlin Hernandez MD HYDROXYZINE HCL 25 MG TABS 1 tab by mouth every 8 hours as needed for anxiety. HYDROXYZINE HCL 01813219866 Merlin Hernandez MD FLUOXETINE HCL 40 MG CAPS 1 cap by mouth daily FLUOXETINE HCL 74534322433 Merlin Hernandez MD TRAZODONE HCL 50 MG TABS 1 tab by mouth nightly as needed for insomnia. 0 TRAZODONE HCL 52678293577 Génesis Sahu RN QUETIAPINE FUMARATE 200 MG TABS ONE PO QHS. QUETIAPINE FUMARATE 72975933989 Merlin Hernandez MD TRAZODONE HCL 50 MG TABS 1 tab by mouth nightly as needed for insomnia. TRAZODONE HCL 07502441776 Merlin Hernandez MD SEROQUEL 200 MG TABS TAKE 1 TABLET BY MOUTH EVERY NIGHT AT BEDTIME QUETIAPINE FUMARATE 22779863206 Merlin Hernandez MD PHENYTOIN SODIUM EXTENDED 100 MG CAPS 1 cap by mouth every 8 hours PHENYTOIN SODIUM EXTENDED 44165313075 Merlin Hernandez MD LISINOPRIL 2.5 MG TABS TAKE 1 TABLET BY MOUTH 1 TIME A DAY LISINOPRIL 04742827025 Ye Pringle DO KEPPRA 750 MG TABS 2 tabs by mouth twice daily LEVETIRACETAM 02998731914 Merlin Hernandez MD PROZAC 20 MG CAPS TAKE 1 BY MOUTH EVERY MORNING FLUOXETINE HCL 13500162502 Merlin Hernandez MD CARVEDILOL 25 MG TABS TAKE 1 TABLET BY MOUTH 2 TIMES A DAY CARVEDILOL 06853273795 Ye Pringle DO ASPIR-LOW 81 MG ORAL TABLET DELAYED RELEASE TAKE 1 TABLET BY MOUTH 1 TIME A DAY ASPIRIN 39411520297 Merlin Hernandez MD PANTOPRAZOLE SODIUM 40 MG TBEC TAKE 1 BY MOUTH EACH DAY PANTOPRAZOLE SODIUM 80486938315 Merlin Hernandez MD CIPROFLOXACIN HCL 500 MG TABS TAKE 1 TABLET BY MOUTH 2 TIMES A DAY x 5 days CIPROFLOXACIN HCL 26276088418 Merlin Hernandez MD PROMETHAZINE HCL 12.5 MG TABS TAKE 1 BY MOUTH EVERY 6 HRS NEEDED FOR NAUSEA/VOMITING 201408/26 PROMETHAZINE HCL 85621178780 Merlin Hernandez MD DICLOFENAC SODIUM 75 MG TBEC TAKE 1 TAB BY MOUTH 2 TIMES A DAY NEEDED FOR PAIN DICLOFENAC SODIUM 18458866486 Madina Munoz APRN Medications Administered No information available. Allergies, Adverse Reactions, Alerts Observed no known allergies at Results Date Name Value Unit Range Flag Description Lab Report: AMYLASE, BASIC M ETABOLIC PANEL, CBC (INCLUDES DIFF/PLT), HEP ... ESR 84 mm/h < OR = 15 H Erythrocyte sedimentation rate by Westergren method PT PATIENT 11.1 s 9.0-11.5 N Prothromb in time (PT) INR 1.1 N INR in Platel et poor plasma by Coagulation assay LIPASE SERUM 36 U/L 7-60 N lipase, serum ANTI-HAV IGM NON-REACTIVE NON-REACT I N Hepatitis A virus IgM Ab [Presence] in Serum or Plasma by Immunoassay HBSAG NON-REACTIVE NON-REACT I N Hepatitis B virus surface Ag [Units/volume] in Serum HEP C AB NON-REACTIVE NON-REACT I N Hepatitis C virus Ab [Presence] in Serum AMYLASE 14 U/L 21-101 L Amylase [Enzy matic activity/volume] in Serum or Plasma Lab Report: FOLATE, SERUM, V ITAMIN B12 FOLATE 12.1 ng/mL N Folate [Mass/ volume] in Serum or Plasma Lab Report: BASIC METABOLIC PANEL, CBC (INCLUDES DIFF/PLT), HEMOGLOBIN A ... TSHREFLX FT4 1.54 m[iU]/L 0.40-4.50 N TSH (t hyroid stimulating hormone) with reflex FT4 DILANTIN 10.7 ug/mL 10.0-20.0 N phenytoin level, serum TRIGLYCRDES 154 mg/dL <150 H Triglycer mariah [Mass/volume] in Serum or Plasma - mg/dL Lab Report: URIC ACID URIC ACID 6.8 mg/dL 4.0-8.0 N Urate [Mass /volume] in Serum or Plasma Lab Report: LIPID PANEL WITH REFLEX TO DIRECT LDL, LIPID PANEL WITH REFL ... BILI DIRECT 0.1 mg/dL < OR = 0.2 N Bilirubin.direct [Mass/volume] in Serum or Plasma Office Visit: f/up bp meds r m11 LDL GOAL <100 mg/dL LDL target l evel Lab Report: CBC PLATELETS 356 X10(3)/MCL 10*3/mm3 144-423 Platelets [#/vol ume] in Blood by Automated count MCHC 35.4 G/DL 32.1-35.3 H MCHC [Mass/ volume] by Automated count RBC 4.46 X10(6)/MCL 10*6/mm3 4.30-5.81 Erythrocytes [#/volume] in Blood by Automated count WBC 8.7 X10(3)/MCL 10*3/mm3 4.0-11.0 Leukocytes [#/volume] in Blood by Automated count Lab Report: Alcohol Medical CREAT CLRNCE >25.0 mg/dL mL/min crea tinine clearance, urine EGFR NOT AFA 115 mL/min/1 .73m2 >=60 Glomerular filtration rate/1.73 sq M.predicted among non-blacks [Volume Rate/Area] in Serum, Plasma or Blood by Creatinine-based formula (MDRD) ANION GAP 12 mmol/L 7-16 Anion gap 4 in Serum or Plasma CHLORIDE 110 mmol/L 98-107 H Chloride [Moles/volume] in Serum or Plasma ALCOHOL, BLD 192 mg/dL <=10 H alcohol, blood Lab Report: LIPID PANEL WITH REFLEX TO DIRECT LDL, LIPID PANEL WITH REFL ... VITAMIN D3 21 pg/mL 1,25-calci trol, serum VIT D 1,25OH 21 18-72 vitamin D 1,25-dihydroxy, serum T4, FREE 1.5 ng/dL 0.8-1.8 N Thyroxine (T 4) free [Mass/volume] in Serum or Plasma EGFR IF AFA 107 mL/min/1 .73m2 >OR = 60 N Glomerular filtration rate/1.73 sq M.predicted among blacks [Volume Rate/Area] in Serum, Plasma or Blood by Creatinine-based formula (MDRD) EGFR 92 mL/min/1 .73m2 >OR = 60 N Glomerular filtration rate/1.73 sq M.predicted [Volume Rate/Area] in Serum, Plasma or Blood by Creatinine-based formula (MDRD) B12 251 pg/mL 200-1100 N Cobalamin (V itamin B12) [Mass/volume] in Serum or Plasma Lab Report: COMPREHENSIVE ME TABOLIC PANEL, CBC (INCLUDES DIFF/PLT), TSH ... BASO % MANU 0.6 % N basophils as percent of blood leukocytes, manual count EOS % MANU 3.2 % N eosinophil s as percent of blood leukocytes, manual count MONOCYTE % 7.3 % N Monocytes/ 100 leukocytes in Blood by Automated count LYMPH% P BLD 22.3 % N lymphocy vin as percent of blood leukocytes PMN % 66.6 % N Neutrophils/1 00 leukocytes in Blood by Automated count ABS BASOS 43 {Cells}/ uL 0-200 N Basophils [#/volume] in Blood ABS EOS 227 {Cells}/ uL 15-500 N Eosinophils [#/volume] in Blood ABS MONOS 518 {Cells}/ uL 200-950 N Monocytes [#/volume] in Blood ABSLYMPHCT 1583 {Cells}/ uL 850-3900 N Lymphocytes [#/volume] in Blood ABS NEUTROPH 4729 CELLS/UL 10*3/uL 5373-2072 N Neutrophils [#/volume] in Blood Lab Report: LIPID PANEL WITH REFLEX TO DIRECT LDL, HDL CHOLESTEROL, TRIG ... HGBA1C 5.2 % OF TOTAL HGB % <5.7 N Hemoglobin A1c/Hemoglobin, total in Blood - % VIT D 25-OH 29 ng/mL 30-100 L 25-Hydrox ycalciferol [Mass/volume] in Serum or Plasma TSH 0.61 u[iU]/mL 0.40-4.50 N Thyrotropi n [Units/volume] in Serum or Plasma MPV 10.0 fL 7.5-12.5 N Platelet milind n volume [Entitic volume] in Blood by Deandre PLATELETK/UL 356 THOUSAND/UL 10*3/uL 140-400 N platelet count RDW 12.4 % 11.0-15.0 N Erythrocyte distribution width [Ratio] by Automated count OL-MCHC 35.2 g/dL 32.0-36.0 N mean corpus cular hemoglobin concentration, rbc MCH 32.9 pg 27.0-33.0 N MCH [Entiti c mass] by Automated count MCV 93.3 fL 80.0-100. 0 N MCV [Entitic volume] by Automated count HCT 45.7 % 38.5-50.0 N Hematocrit [Volume Fraction] of Blood by Automated count HGB 16.1 g/dL 13.2-17.1 N Hemoglobin [Mass/volume] in Blood RBC M/UL 4.90 MILLION/UL 10*6/uL 4.20-5.80 N red blood count WBC CT BLOOD 7.5 10*3/uL 3.8-10.8 N leukocy te count, blood SGPT (ALT) 17 U/L 9-46 N Alanine aminotransferase [Enzymatic activity/volume] in Serum or Plasma SGOT (AST) 18 U/L 10-40 N Aspartate aminotransferase [Enzymatic activity/volume] in Serum or Plasma ALK PHOS 53 U/L 36-130 N Alkaline jean sphatase [Enzymatic activity/volume] in Blood BILI TOTAL 0.9 mg/dL 0.2-1.2 N Bilirubin. total [Mass/volume] in Serum or Plasma A/G RATIO 2.0 (calc) 1.0-2.5 N Albumin/ Globulin [Mass Ratio] in Serum or Plasma GLOBULIN TOT 2.1 G/DL (CALC) g/dL 1.9-3.7 N Globulin [Mass/volume] in Serum ALBUMIN EOP 4.3 g/dL 3.6-5.1 N Albumin [Mass/volume] in Serum or Plasma by Electrophoresis PROTEIN, TOT 6.4 g/dL 6.1-8.1 N Protein [Mass/volume] in Serum or Plasma CALCIUM 9.7 mg/dL 8.6-10.3 N Calcium [Moles/volume] in Serum or Plasma CO2 33 mmol/L 20-32 H Carbon dioxid e, total [Moles/volume] in Venous blood CHLORIDE BLD 103 mmol/L 98-110 N chloride , blood POTASSIUM 4.1 mmol/L 3.5-5.3 N Potassium [Moles/volume] in Serum or Plasma SODIUM 141 mmol/L 135-146 N Sodium [Moles/volume] in Serum or Plasma BUN/CREAT SEE NOTE: (calc) 6-22 Urea nitrogen/Creatinine [Mass Ratio] in Serum or Plasma CREATININE 0.72 mg/dL 0.60-1.26 N Creatini ne [Mass/volume] in Serum or Plasma BUN 13 mg/dL 7-25 N Urea nitrogen [Mass/volume] in Serum or Plasma GLUCOSE SER 95 mg/dL 65-99 N Glucose [Mass/volume] in Serum or Plasma NON-HDL CHOL 74 MG/DL (CALC) mg/dL <130 N cholesterol, non-HDL, total CHOL/HDL % 2.1 (calc) <5.0 N cholest vineet/HDL ratio, serum, percent LDL 58 MG/DL (CALC) mg/dL N Cholesterol in L DL [Mass/volume] in Serum or Plasma - mg/dL TRIGLYC TOT 79 mg/dL <150 N Triglycer mariah [Mass/volume] in Serum or Plasma - mg/dL HDL 70 mg/dL >OR = 40 N Cholesterol in HDL [Mass/volume] in Serum or Plasma - mg/dL CHOLESTEROL 144 mg/dL <200 N Cholester ol [Mass/volume] in Serum or Plasma - mg/dL Office Visit: Acute Visit Ve rsion 2 using combo CCC & HP forms LABS ORDERED Accucheck 50997 Laboratory tests ordered BG RANDOM 96 mg/dL Glucose [Mass/volume] in Blood Plan of Care Type Date Detail Referral [facility] Neurology [facility], [address] , [place], [address] Referral Neurology Referr corazon [facility] [place] [facility], [address], [place], [address] Referral [facility]iology [facility] [place], [address], [place], [address] Referral Gastroenterology Referral [facility], [address], [place], [address] Pending order Accucheck 68691 Pending order T1 CBC no diff Pending order T1 CMP Pending order T1 HGBA1c Pending order T1 Lipid Panel Pending order T1 TSH reflex to free T4 Pending order T1 CBC no diff Pending order T1 CMP Pending order T1 HGBA1c Pending order T1 Lipid Panel Pending order T1 TSH reflex to free T4 Pending order T2 Vitamin D 25 Hydroxy Pending order X-Ray Hand Right Pending Order exclud ed from report: Pending order T1 CMP Pending order Other - Patient Pay Pending order T1 CBC with diff Pending order T1 TSH reflex to free T4 Pending order T1 CBC with diff Pending order T1 B12 Pending order T1 CMP Pending order T1 HGBA1c Pending order T1 Lipid Panel Pending order T1 TSH reflex to free T4 Pending order T2 Vitamin D 25 Hydroxy Pending order Other - Patient Pay Pending order T1 CBC with diff Pending order T1 CMP Pending order T1 TSH reflex to free T4 Pending order T1 Lipid Panel Pending order T2 Vitamin D 25 Dihydroxy Pending order T1 CBC with diff Pending order T1 CMP Pending order T1 Lipid Panel Pending order T1 TSH reflex to free T4 Pending order T2 HGB Electroph oresis Pending order T2 Vitamin D 25 Dihydroxy Pending order T2 Vitamin D 25 Hydroxy Pending order T1 CMP Pending order T1 CBC with diff Pending order T1 CMP Pending order T1 Lipid Panel Pending order T2 Vitamin D 25 Hydroxy Pending order BMP Pending order Hepatitic Functi on Panel Pending order Lipid Panel Pending order Medication Recon ciliation Pending order X-Ray Foot Pending order Uric Acid Pending order SNOMED-CT: 33213 3000 Smoking Cessation Counseling Pending order SNOMED-CT: 04086 [id number] Current Medications Documented Pending order Medication Recon ciliation Pending order 87649 ESTAB efoc /efoc/low Pending order Medication Recon ciliation Pending order SNOMED-CT: 22510 [id number] Current Medications Documented Pending order Urine Drug Scree n w/o Confirmation Pending Order exclud ed from report: Pending order Medication Recon ciliation Pending order 69313 ESTAB efoc /efoc/low Pending order Urine Drug Scree n w/o Confirmation Pending order 26232 ESTAB efoc /efoc/low Pending order 23897 ESTAB efoc /efoc/low Pending order SNOMED-CT: 10160 3000 Smoking Cessation Counseling Pending order SNOMED-CT: 70283 [id number] Current Medications Documented Pending order 67491 ESTAB efoc /efoc/low Pending order Urine Drug Scree n w/o Confirmation Pending order Psych Dx Eval WI TH E&M -MD/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 Only Pending order SNOMED-CT: 76969 [id number] Current Medications Documented Pending order Phenytoin (Jamshid tin) Pending order Other Pending order CBC with diff Pending order BMP Pending order B12 Pending order Folic Acid Pending order Hepatitic Functi on Panel Pending order HGBA1c Pending order Lipid Panel Pending order TSH reflex to fr ee T4 Pending order CT Abdomen and P lele w contrast Pending Order exclud ed from report: Pending order ECHO Pending Order exclud ed from report: Pending order ECHO Pending order CT Abdomen and P lele w contrast Pending order CBC with diff Pending order BMP Pending order Hepatitic Functi on Panel Pending order Acute Hepatits P adrien Pending order HIV Antibody -co nsent required Pending order Protime INR Pending order TSH reflex to fr ee T4 Pending order Lipase Pending order Amylase Pending order Sedimentation Ra te RBC Patient education Patient Educat ion Given Patient education Patient Educat ion Given Patient education Patient Educat ion Given Patient education Patient Educat ion Given Patient education Patient Educat ion Given Patient education Patient Educat ion Given Patient education Patient Educat ion Given Patient education Patient Educat ion Given Patient education Patient Educat ion Given Patient education Patient Educat ion Given Patient education Patient Educat ion Given Patient education Medications Patient education Medications Patient education Medications Patient education Medications Patient education Medications Patient education Medications Procedures Code Procedure Name Date Entry Date [facility]-[id number] Medication Reconciliation CPT-3075F Most recent systolic blood pressure 130-139 mm Hg CPT-3079F Most recent diastoli c blood pressure 80-89 mm Hg CPT-0513F Elevated blood press ure plan of care documented CPT-1159F Medication list docu mented in medical record CPT-1160F Review of all medica tions by a prescribing practitioner 4004F Patient screened for tobacco use and received tobacco cessation intervention [id number] Current every day smoker 21/07/15 [id number] Smoking cessation education [id number] Medication Reconciliation CPT-3074F Most recent systolic blood pressure <130 mm Hg CPT-3079F Most recent diastoli c blood pressure 80-89 mm Hg CPT-1159F Medication list docu mented in medical record CPT-1160F Review of all medica tions by a prescribing practitioner [id number] Current every day smoker 20 19/04/15 4004F Patient screened for tobacco use and received tobacco cessation intervention [id number] Smoking cessation education [facility] 1759 T1 CBC no diff [facility] 67701 T1 CMP [facility] 496 T1 HGBA1c [facility] 97439 T1 Lipid Panel [facility] 78231 T1 TSH reflex to free T4 10/04/14 39316 Fluzone Quadrivalent CPT-01010 IMADM >18YR IM ROUTE 1ST VAC/TOXOID 04/05 CPT-1159F Medication list docu mented in medical record [id number] Medication Reconciliation CPT-3075F Most recent systolic blood pressure 130-139 mm Hg CPT-3079F Most recent diastoli c blood pressure 80-89 mm Hg CPT-1159F Medication list docu mented in medical record CPT-1160F Review of all medica tions by a prescribing practitioner 4004F Patient screened for tobacco use and received tobacco cessation intervention [id number] Current every day smoker 20 17/01/18 [id number] Smoking cessation education SCT-[id number] Medication Reconciliation CPT-3075F Most recent systolic blood pressure 130-139 mm Hg 4004F Patient screened for tobacco use and received tobacco cessation intervention SCT-[id number] Medication Reconciliation 4004F Patient screened for tobacco use and received tobacco cessation intervention CPT-3077F Most recent systolic blood pressure >=140 mm Hg CPT-1159F Medication list docu mented in medical record CPT-1160F Review of all medica tions by a prescribing practitioner X-Ray Hand Right X-Ray Hand Right [facility] 1759 T1 CBC no diff [facility] 97293 T1 CMP [facility] 496 T1 HGBA1c [facility] 85436 T1 Lipid Panel [facility] 73079 T1 TSH reflex to free T4 10/01/03 [facility] 89447 T2 Vitamin D 25 Hydroxy 2023 4004F Patient screened for tobacco use and received tobacco cessation intervention CPT-3075F Most recent systolic blood pressure 130-139 mm Hg SCT-[id number] Medication Reconciliation SCT-[id number] Medication Reconciliation CPT-3074F Most recent systolic blood pressure <130 mm Hg CPT-3078F Most recent diastoli c blood pressure <80 mm Hg SCT-[id number] Medication Reconciliation 4004F Patient screened for tobacco use and received tobacco cessation intervention CPT-3074F Most recent systolic blood pressure <130 mm Hg CPT-3078F Most recent diastoli c blood pressure <80 mm Hg SCT-[id number] Medication Reconciliation CPT-3074F Most recent systolic blood pressure <130 mm Hg CPT-3078F Most recent diastoli c blood pressure <80 mm Hg CPT-1159F Medication list docu mented in medical record CPT-1160F Review of all medica tions by a prescribing practitioner [facility] 65346 T1 CMP Other [facility] Other - Patient Pay [facility] 6399 T1 CBC with diff [facility] 18720 T1 TSH reflex to free T4 09/01/23 [facility]-[id number] Medication Reconciliation 4004F Patient screened for tobacco use and received tobacco cessation intervention CPT-3074F Most recent systolic blood pressure <130 mm Hg CPT-3079F Most recent diastoli c blood pressure 80-89 mm Hg Other [facility] Other - Patient Pay 4004F Patient screened for tobacco use and received tobacco cessation intervention SCT-[id number] Medication Reconciliation CPT-3074F Most recent systolic blood pressure <130 mm Hg CPT-3078F Most recent diastoli c blood pressure <80 mm Hg CPT-1159F Medication list docu mented in medical record CPT-1160F Review of all medica tions by a prescribing practitioner [facility] 6399 T1 CBC with diff [facility] 927 T1 B12 [facility] 21797 T1 CMP [facility] 496 T1 HGBA1c [facility] 14321 T1 Lipid Panel [facility] 03261 T1 TSH reflex to free T4 08/29/23 [facility] 24827 T2 Vitamin D 25 Hydroxy 2022 4004F Patient screened for tobacco use and received tobacco cessation intervention CPT-3075F Most recent systolic blood pressure 130-139 mm Hg CPT-3079F Most recent diastoli c blood pressure 80-89 mm Hg SCT-[id number] Medication Reconciliation SCT-[id number] Medication Reconciliation CPT-85388 Pfizer COVID-19 Saran -sucrose 30 mcg/0.3 mL Booster (servin cap >=12 y) CPT-0054A Pfizer COVID-19 Saran -sucrose Booster Immunization admin CPT-3074F Most recent systolic blood pressure <130 mm Hg CPT-3079F Most recent diastoli c blood pressure 80-89 mm Hg SCT-[id number] Medication Reconciliation 36997 Fluzone Quadrivalent CPT-67919 IMADM >18YR IM ROUTE 1ST VAC/TOXOID 04/12 CPT II 4004F Patient screened for tobacco use and received tobacco cessation intervention SCT-[id number] Medication Reconciliation CPT-3074F Most recent systolic blood pressure <130 mm Hg CPT-3079F Most recent diastoli c blood pressure 80-89 mm Hg CPT-1159F Medication list docu mented in medical record CPT-1160F Review of all medica tions by a prescribing practitioner [facility]-[id number] Medication Reconciliation CPT II 4004F Patient screened for tobacco use and received tobacco cessation intervention CPT-3074F Most recent systolic blood pressure <130 mm Hg CPT-3079F Most recent diastoli c blood pressure 80-89 mm Hg CPT II 4004F Patient screened for tobacco use and received tobacco cessation intervention CPT-3074F Most recent systolic blood pressure <130 mm Hg CPT-3079F Most recent diastoli c blood pressure 80-89 mm Hg SCT-[id number] Medication Reconciliation CPT II 4004F Patient screened for tobacco use and received tobacco cessation intervention CPT-3074F Most recent systolic blood pressure <130 mm Hg CPT-3079F Most recent diastoli c blood pressure 80-89 mm Hg CPT-1159F Medication list docu mented in medical record CPT-1160F Review of all medica tions by a prescribing practitioner [facility] 6399 T1 CBC with diff [facility] 02355 T1 CMP [facility] 52141 T1 TSH reflex to free T4 07/31/25 [facility] 07554 T1 Lipid Panel [facility] 28764 T2 Vitamin D 25 Dihydroxy 20 16/10/25 SCT-[id number] Medication Reconciliation SCT-[id number] Medication Reconciliation 83443 Fluzone Quadrivalent CPT-10874 IMADM >18YR IM ROUTE 1ST VAC/TOXOID 04/21 CPT-3074F Most recent systolic blood pressure <130 mm Hg CPT-3078F Most recent diastoli c blood pressure <80 mm Hg SCT-[id number] Medication Reconciliation CPT-3075F Most recent systolic blood pressure 130-139 mm Hg CPT-3077F Most recent systolic blood pressure >=140 mm Hg CPT-3078F Most recent diastoli c blood pressure <80 mm Hg SCT-[id number] Medication Reconciliation [facility] 6399 T1 CBC with diff [facility] 77247 T1 CMP [facility] 496 T1 HGBA1c [facility] 77141 T1 Lipid Panel [facility] 63136 T1 TSH reflex to free T4 06/30/26 CPT-3075F Most recent systolic blood pressure 130-139 mm Hg CPT-3079F Most recent diastoli c blood pressure 80-89 mm Hg CPT-1159F Medication list docu mented in medical record CPT-3075F Most recent systolic blood pressure 130-139 mm Hg CPT-3075F Most recent systolic blood pressure 130-139 mm Hg SCT-[id number] Medication Reconciliation SCT-[id number] Medication Reconciliation CPT-3075F Most recent systolic blood pressure 130-139 mm Hg CPT-3079F Most recent diastoli c blood pressure 80-89 mm Hg 33090 Flulaval Quadrivalent CPT-48849 IMADM >18YR IM ROUTE 1ST VAC/TOXOID 04/22 CPT-1159F Medication list docu mented in medical record CPT-1160F Review of all medica tions by a prescribing practitioner CPT-3077F Most recent systolic blood pressure >=140 mm Hg SCT-[id number] Medication Reconciliation SCT-[id number] Medication Reconciliation [facility] 6399 T1 CBC with diff [facility] 88213 T1 CMP [facility] 81106 T1 Lipid Panel [facility] 31278 T1 TSH reflex to free T4 202 [facility] 38365 T2 HGB Electrophoresis 10/24 [facility] 77058 T2 Vitamin D 25 Dihydroxy 20 14/10/29 SCT-[id number] Medication Reconciliation CPT-3077F Most recent systolic blood pressure >=140 mm Hg CPT-3078F Most recent diastoli c blood pressure <80 mm Hg CPT-3075F Most recent systolic blood pressure 130-139 mm Hg SCT-[id number] Medication Reconciliation CPT-82452 Fluzone Quadrivalent Preservative Free prefilled syringe (36 mos +) CPT-24624 IMADM >18YR IM ROUTE 1ST VAC/TOXOID 04/13 [facility] 28256 T2 Vitamin D 25 Hydroxy 2018 SCT-[id number] Medication Reconciliation CPT-69060 Venipuncture 07342 4 CPT-3077F Most recent systolic blood pressure >=140 mm Hg SCT-[id number] SNOMED-CT: 866735363 Smoking Cessation Counseling SCT-499676112346060 SNOMED-CT: 248635591 628033 Current Medications Documented [facility] 78040 T1 CMP CPT-3077F Most recent systolic blood pressure >=140 mm Hg SCT-[id number] Medication Reconciliation SCT-096190854120508 Medication Reconciliation CPT-3075F Most recent systolic blood pressure 130-139 mm Hg CPT-3078F Most recent diastoli c blood pressure <80 mm Hg CPT-3074F Most recent systolic blood pressure <130 mm Hg CPT-3079F Most recent diastoli c blood pressure 80-89 mm Hg CPT-3077F Most recent systolic blood pressure >=140 mm Hg SCT-[id number] Medication Reconciliation SCT-570235513707182 Medication Reconciliation CPT-3075F Most recent systolic blood pressure 130-139 mm Hg SCT-463441598771506 Medication Reconciliation CPT-54783 Fluzone Quadrivalent Preservative Free prefilled syringe (36 mos +) CPT-90470 IMADM >18YR IM ROUTE 1ST VAC/TOXOID 06/12 CPT-3075F Most recent systolic blood pressure 130-139 mm Hg CPT-3079F Most recent diastoli c blood pressure 80-89 mm Hg CPT-3074F Most recent systolic blood pressure <130 mm Hg CPT-3074F Most recent systolic blood pressure <130 mm Hg SCT-[id number] Medication Reconciliation SCT-[id number] Medication Reconciliation CPT-3074F Most recent systolic blood pressure <130 mm Hg CPT-3079F Most recent diastoli c blood pressure 80-89 mm Hg CPT-3074F Most recent systolic blood pressure <130 mm Hg CPT-3079F Most recent diastoli c blood pressure 80-89 mm Hg SCT-[id number] Medication Reconciliation CPT-3075F Most recent systolic blood pressure 130-139 mm Hg CPT-3079F Most recent diastoli c blood pressure 80-89 mm Hg SCT-325147813884048 Medication Reconciliation [facility] 6399 T1 CBC with diff [facility] 98479 T1 CMP [facility] 33982 T1 Lipid Panel [facility] 90455 T2 Vitamin D 25 Hydroxy 2017 CPT-3074F Most recent systolic blood pressure <130 mm Hg CPT-3078F Most recent diastoli c blood pressure <80 mm Hg SCT-485603359259170 Medication Reconciliation SCT-947712887994418 Medication Reconciliation CPT-3074F Most recent systolic blood pressure <130 mm Hg CPT-3078F Most recent diastoli c blood pressure <80 mm Hg CPT-3074F Most recent systolic blood pressure <130 mm Hg CPT-3079F Most recent diastoli c blood pressure 80-89 mm Hg SCT-639082835113839 Medication Reconciliation SCT-397832713502912 Medication Reconciliation CPT-3074F Most recent systolic blood pressure <130 mm Hg CPT-3079F Most recent diastoli c blood pressure 80-89 mm Hg SCT-321735118089330 Medication Reconciliation SCT-676877189746029 Medication Reconciliation SCT-256661227820670 Medication Reconciliation SCT-352284584157330 SNOMED-CT: 986047621 909920 Current Medications Documented CPT-94654 Fluzone Quadrivalent Preservative Free Intramuscular Suspension 0.5 ML CPT-73181 IMADM >18YR IM ROUTE 1ST VAC/TOXOID 05/25 48606 [facility] # BMP 9 78006 [facility] # Hepatitic Function Panel 15948 [facility] # Lipid Panel 9 SCT-333680231 Giving encouragement to exercise SCT-182676243 Lifestyle education regarding diet 03/25 SCT-785443752488162 Medication Reconciliation SCT-392607244163931 Medication Reconciliation SCT-226422744 SNOMED-CT: 847502791 Smoking Cessation Counseling SCT-141087556541951 SNOMED-CT: 363912203 274593 Current Medications Documented X-Ray Foot X-Ray Foot 905 [facility] # Uric Acid SCT-421663074937754 Medication Reconciliation SCT-487988663630795 Medication Reconciliation SCT-534238443967174 SNOMED-CT: 979705532 588665 Current Medications Documented 12800 [facility] # Urine Drug Screen w/o Confirmation SCT-414017162156546 Medication Reconciliation SCT-368396157 SNOMED-CT: 693329641 Smoking Cessation Counseling SCT-035885271696665 SNOMED-CT: 844146889 989599 Current Medications Documented 75004 [facility] # Urine Drug Screen w/o Confirmation CPT-10185 Psych Dx Eval WITH E&M -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 SCT-018265999779071 SNOMED-CT: 942945771 201268 Current Medications Documented 927 [facility] # B12 466 [facility] # Folic Acid 713 [facility] # Phenytoin (Dilantin) 201 10/04/05 Other [facility] Other 6399 [facility] # CBC with diff 6 78427 [facility] # BMP 6 36450 [facility] # Hepatitic Function Panel 496 [facility] # HGBA1c 36143 [facility] # Lipid Panel 6 44929 [facility] # TSH reflex to free T4 SEP NEURO [facility] Neurology Referral S EP Neurology [place] [facility] [place] [address] E [facility] Gastroenterology Re ferral [place] [facility] abd pel w edg CT Abdomen and Pelvis w contrast 2013 ECHO ECHO 6399 [facility] # CBC with diff 7 26389 [facility] # BMP 7 41729 [facility] # Hepatitic Function Panel 72678 [facility] # Acute Hepatits Panel 2 64370 [facility] # HIV Antibody -consent required 2013 8847 [facility] # Protime INR 76611 [facility] # TSH reflex to free T4 606 [facility] # Lipase 243 [facility] # Amylase 809 [facility] # Sedimentation Rate RBC 2 Vital Signs Date Name Value Unit Description BMI (Body Mass Index) 20.76 kg/m2 Bod y Mass Index (Ratio) Body Temperature 97.7 [degF] temperat ure E&M Body Temperature 36.5 Karyn temperat ure in centigrade E&M BP Diastolic 86 mm[Hg] blood pressu re, diastolic BP Systolic 136 mm[Hg] blood pressur e, systolic BSA (Body Surface Area) 1.88 b [place] surface area Heart Rate 85 /min pulse rate Height 72 [in_us] height E&M Height 182.88 cm height in cent imeters E&M Respiratory Rate 18 /min respirat ory rate E&M Weight Measured 69.32 kg weight in kilograms E&M Weight Measured 152.5 [lb_av] weight E& M Weight Measured 152.5 [lb_av] weight E& M Heart Rate 81 /min pulse rate 10 Immunizations Vaccine Administration Date Standard Description CVX Co de Dose Fluzone Preservative Free Intramuscular Suspension 36mo+ 0.5ml Fluzone Preservative Free Intramuscular Suspension 36mo+ 0.5ml 140 0.5 mL PRIVATE Fluzone Quadrivalent Prefilled Syringe 0.5 ML for 36 mos + PRIVATE Fluzone Quadrivalent Prefilled Syringe 0.5 ML for 36 mos + 150 0.5 mL PRIVATE Fluzone Quadrivalent Prefilled Syringe 0.5 ML for 6 mos - 64 years PRIVATE Fluzone Quadrivalent Prefilled Syringe 0.5 ML for 6 mos - 64 years 150 0.5 mL PRIVATE Flulaval Quadrivalent Prefilled Syringe 0.5 ML 6 mos - 64 years PRIVATE Flulaval Quadrivalent Prefilled Syringe 0.5 ML 6 mos - 64 years 150 0.5 mL PRIVATE Fluzone Quadrivalent Intramuscular Suspension Prefilled Syringe 0.5 ML 6mos-64yrs PRIVATE Fluzone Quadrivalent Intramuscular Suspension Prefilled Syringe 0.5 ML 6mos-64yrs 150 0.5 mL PRIVATE Fluzone Quadrivalent Intramuscular Suspension Prefilled Syringe 0.5 ML 6mos-64yrs PRIVATE Fluzone Quadrivalent Intramuscular Suspension Prefilled Syringe 0.5 ML 6mos-64yrs 150 0.5 mL COVID-19 mRNA (MOD) COVID-19 mRNA (MOD) 207 Unknown COVID-19 mRNA (MOD) COVID-19 mRNA (MOD) 207 Unknown Tdap, Adsorbed Tdap, Adsorbed 115 Unknow n Td (adult), adsorbed Td (adult), adsorbed 09 Unknown Pfizer COVID-19 Vaccine SERVIN CAP (>= 12 years) Booster Pfizer COVID-19 Vaccine SERVIN CAP (>= 12 years) Booster 217 0.3 mL PRIVATE Fluzone Quadrivalent Intramuscular Suspension Prefilled Syringe 0.5 ML 6mos-64yrs PRIVATE Fluzone Quadrivalent Intramuscular Suspension Prefilled Syringe 0.5 ML 6mos-64yrs 150 0.5 mL Advance Directives Directive Description Start Date DISCUSSED - NO DECISION MADE
[2025-01-28 12:30] VITALS: BP 118/76; PULSE 66; RESP 16; TEMP 36.9; O2SAT 98
== END 2025-01-28 12:41 | disposition home or self-care (01) ==
PROVIDERS: Emergency Provider Student in an Organized Health Care Education/Training Program
DX: K08.89 Other specified disorders of teeth and supporting structures (principal); K02.9 Dental caries, unspecified; F17.200 Nicotine dependence, unspecified, uncomplicated
CPT/HCPCS: 99283

== ENCOUNTER 2025-02-09 14:10 | Emergency (ER) | payer MEDICAID, SELFPAY ==
[2025-02-09 14:11] VITALS: BP 141/88; PULSE 75; RESP 16; TEMP 37.3; O2SAT 98
--- OUTSIDE RECORDS SUMMARY | 2025-02-09 14:11 | XMS_ITS | Clinical Summary ---
Author Organization [facility] Dental Address [address] [place] [id number] Phone Care Team Providers Care Cash Analyst Name Role Phone Lucrecia Lozano Primary Care Physician [phone] Conditions or Problems Problem Name Problem Code Onset Date Status Entry Date Provider Comment Standard Description Annotate Body mass index (BMI) 20.0-20.9; adult Z68.20 (ICD-10-CM ) 07/12 Active 07/13 [facility] Body mass index [BMI] 20.0-20.9, adult Body mass index (BMI) 19 or less; adult Z68.1 (ICD-10-CM ) 01/11 Correction 01/20 [facility] Body mass index [BMI] 19.9 or less, adult Counseling for nutrition Z71.3 (ICD-10-CM ) 01/11 Inactive 01/20 [facility] Dietary counseling and surveillance Body mass index (BMI) 19 or less; adult Z68.1 (ICD-10-CM ) 01/11 Removed 01/20 [facility] Body mass index [BMI] 19.9 or less, adult Counseling for nutrition Z71.3 (ICD-10-CM ) 01/11 Inactive 01/20 [facility] Dietary counseling and surveillance Body mass index (BMI) 19 or less; adult Z68.1 (ICD-10-CM ) Correction [facility] Body mass index [BMI] 19.9 or less, adult Counseling for nutrition Z71.3 (ICD-10-CM ) 12/12 Inactive 12/12 [facility] 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 Dietary counseling and surveillance Unspecified superficial injury of right ring finger, sequela 631592478 (SNOMED CT) 11/28 Active 11/28 [facility] 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 Superficial injury of finger Counseling for nutrition Z71.3 (ICD-10-CM ) 11/28 Inactive 11/28 [facility] 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 Dietary counseling and surveillance Counseling for nutrition Z71.3 (ICD-10-CM ) Inactive [facility] [place] [facility] Dietary counseling and surveillance Body mass index (BMI) 19 or less; adult Z68.1 (ICD-10-CM ) Removed [facility] Body mass index [BMI] 19.9 or less, adult Body mass index (BMI) 21.0-21.9; adult Z68.21 (ICD-10-CM ) 10/25 Correction 10/26 [facility] [place] [facility] Body mass index [BMI] 21.0-21.9, adult Decreased body mass index 0900957 (SNOMED CT) 02/15 Correction 02/15 Lucrecia [place] [facility] Decreased body mass index Weight loss 20722194 (SNOMED CT) 02/15 Active 02/15 Olga Reena DO Weight loss Decreased body mass index 5481093 (SNOMED CT) 02/15 Removed 02/15 Olga Reena DO Decreased body mass index Counseling for nutrition Z71.3 (ICD-10-CM ) 01/20 Inactive 01/20 Lu[facility] [place] [facility] Dietary counseling and surveillance Body mass index (BMI) 21.0-21.9; adult Z68.21 (ICD-10-CM ) 10/25 Removed 10/26 [facility] [place] [facility] Body mass index [BMI] 21.0-21.9, adult Body mass index (BMI) 21.0-21.9; adult Z68.21 (ICD-10-CM ) 10/18 Correction 10/18 Lucrecia Samano PMHNP Body mass index [BMI] 21.0-21.9, adult Substance Abuse 74611359 (SNOMED CT) 10/26 Active 10/26 [facility] Depression 07764701 (SNOMED CT) 10/26 Active 10/26 [facility] Depressive disorder Anxiety Disorder 540632094 (SNOMED CT) 10/26 Active 10/26 Lucrecia Samano [facility] Anxiety disorder Body mass index (BMI) [...] mass index [BMI] 22.0-22.9, adult Weight loss 63999034 (SNOMED CT) 10/18 Active 10/18 Olga Reena DO Weight loss Counseling for nutrition Z71.3 (ICD-10-CM ) 07/26 Inactive 07/26 Shalonda Parada [facility] Dietary counseling and surveillance Body mass index (BMI) 22.0-22.9; adult Z68.22 (ICD-10-CM ) 07/26 Removed 07/26 Shalonda Ankit Randolphon INSPECTOR AND CLERK Body mass index [BMI] 22.0-22.9, adult Body mass index (BMI) 23.0-23.9; adult Z68.23 (ICD-10-CM ) Correction Shalonda Ankit Randolphon INSPECTOR AND CLERK Body mass index [BMI] 23.0-23.9, adult Body mass index (BMI) 23.0-23.9; adult Z68.23 (ICD-10-CM ) Removed Olga Reena DO Body mass index [BMI] 23.0-23.9, adult Body mass index (BMI) 21.0-21.9; adult Z68.21 (ICD-10-CM ) Correction Olga Reena DO Body mass index [BMI] 21.0-21.9, adult Counseling for nutrition Z71.3 (ICD-10-CM ) Inactive Shalonda Ankit Randolphon INSPECTOR AND CLERK Dietary counseling and surveillance Body mass index (BMI) 21.0-21.9; adult Z68.21 (ICD-10-CM ) Removed Shalonda Ankit Randolphon INSPECTOR AND CLERK Body mass index [BMI] 21.0-21.9, adult Body mass index (BMI) 23.0-23.9; adult Z68.23 (ICD-10-CM ) 01/18 Correction 01/18 Shalonda G Karma INSPECTOR AND CLERK Body mass index [BMI] 23.0-23.9, adult Body mass index (BMI) 23.0-23.9; adult Z68.23 (ICD-10-CM ) 01/18 Removed 01/18 Shalonda G Karma INSPECTOR AND CLERK Body mass index [BMI] 23.0-23.9, adult Counseling [...] DO Dietary counseling and surveillance Tobacco User 822774276 (SNOMED CT) 10/20 Active 10/20 Olga Reena DO Tobacco user Counseling for nutrition Z71.3 (ICD-10-CM ) 08/06 Inactive 08/06 Shalonda MARTINEZ Dietary counseling and surveillance Counseling for nutrition [...] (ICD-10-CM ) 03/06 Inactive 03/06 Shalonda G [place] INSPECTOR AND CLERK Dietary counseling and surveillance Body mass index (BMI) 21.0-21.9; adult Z68.21 (ICD-10-CM ) 03/06 Removed 03/06 Shalonda G Karma INSPECTOR AND CLERK Body mass index [BMI] 21.0-21.9, adult Body mass index (BMI) 22.0-22.9; adult Z68.22 (ICD-10-CM ) 11/28 Correction 11/28 Shalonda G Karma INSPECTOR AND CLERK Body mass index [BMI] 22.0-22.9, adult Counseling for nutrition Z71.3 (ICD-10-CM ) 11/28 Inactive 11/28 Shalonda G [place] INSPECTOR AND CLERK Dietary counseling and surveillance Body mass index (BMI) 22.0-22.9; adult Z68.22 (ICD-10-CM ) 11/28 Removed 11/28 Shalonda G [place] INSPECTOR AND CLERK Body mass index [BMI] 22.0-22.9, adult Body mass index (BMI) 22.0-22.9; adult Z68.22 (ICD-10-CM ) 10/21 Correction 10/21 Shalonda G [place] INSPECTOR AND CLERK Body mass index [BMI] 22.0-22.9, adult Body mass index (BMI) 22.0-22.9; adult Z68.22 (ICD-10-CM ) 10/21 Removed 10/21 Olga Reena DO Body mass index [BMI] 22.0-22.9, adult Marijuana abuse 27093033 (SNOMED CT) 10/21 Active 10/21 Olga Reena DO Harmful pattern of use of cannabis Alcohol use 196225 (SNOMED CT) 10/21 Active 10/21 Olga Reena [...] index [BMI] 23.0-23.9, adult Influenza vaccination given 573611127 (SNOMED CT) Active Nabeel Donovan 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 Medication given Body mass index (BMI) 23.0-23.9; adult Z68.23 (ICD-10-CM ) Removed Shaila Lopez MA Body mass index [BMI] 23.0-23.9, adult Body mass index (BMI) 21.0-21.9; adult Z68.21 (ICD-10-CM ) 02/07 Correction 02/07 Shaila Martinezra MCLEOD Body mass index [BMI] 21.0-21.9, adult Counseling for nutrition Z71.3 (ICD-10-CM ) 02/07 Inactive 02/07 Shalonda Ankit Parada INSPECTOR AND CLERK Dietary counseling and surveillance Body mass index (BMI) 21.0-21.9; adult Z68.21 (ICD-10-CM ) 02/07 Removed 02/07 Shalonda G Karma INSPECTOR AND CLERK Body mass index [BMI] 21.0-21.9, adult Body mass index (BMI) 21.0-21.9; adult Z68.21 (ICD-10-CM ) 10/24 Correction 10/24 Shalonda Ankit Parada INSPECTOR AND CLERK Body mass index [BMI] 21.0-21.9, adult Body [...] (ICD-10-CM ) 08/02 Removed 08/02 Shalonda G [place] INSPECTOR AND CLERK Body mass index [BMI] 24.0-24.9, adult Counseling for nutrition Z71.3 (ICD-10-CM ) 08/02 Inactive 08/02 Shalonda G Karma INSPECTOR AND CLERK Dietary counseling and surveillance Body mass index (BMI) 25.0-25.9; adult Z68.25 (ICD-10-CM ) Correction Shalonda G Karma INSPECTOR AND CLERK Body mass index [BMI] 25.0-25.9, adult Flu vaccine 85883218 (SNOMED CT) Inactive Esteban Coombs RN Administration of influenza vaccine Counseling for nutrition Z71.3 (ICD-10-CM ) Inactive Radha Edmondson DO Dietary counseling and surveillance Body mass index (BMI) 25.0-25.9; adult Z68.25 (ICD-10-CM ) Removed Radha Edmondson DO Body mass index [BMI] 25.0-25.9, adult Body mass index (BMI) 25.0-25.9; adult Z68.25 (ICD-10-CM ) 03/02 Correction 03/02 Radha Edmondson DO Body mass index [BMI] 25.0-25.9, adult Counseling for nutrition Z71.3 (ICD-10-CM ) 03/02 Inactive 03/02 Shalonda G Karma INSPECTOR AND CLERK Dietary counseling and surveillance Body mass index (BMI) 25.0-25.9; adult Z68.25 (ICD-10-CM ) 03/02 Removed 03/02 Shalonda G [place] INSPECTOR AND CLERK Body mass index [BMI] 25.0-25.9, adult Body mass index (BMI) 25.0-25.9; adult Z68.25 (ICD-10-CM ) 11/03 Correction 11/03 Shalonda G [place] INSPECTOR AND CLERK Body mass index [BMI] 25.0-25.9, adult Counseling for nutrition Z71.3 (ICD-10-CM ) 11/03 Inactive 11/03 Shalonda G Karma INSPECTOR AND CLERK Dietary counseling and surveillance Body mass index (BMI) 25.0-25.9; adult Z68.25 (ICD-10-CM ) 11/03 Removed 11/03 Shalonda G [place] INSPECTOR AND CLERK Body mass index [BMI] 25.0-25.9, adult Body mass index (BMI) 25.0-25.9; adult Z68.25 (ICD-10-CM ) 10/09 Correction 10/09 Shalonda G Karma INSPECTOR AND CLERK Body mass index [BMI] 25.0-25.9, adult Depression 33618518 (SNOMED CT) 11/03 Active 11/03 Shalonda G [place] INSPECTOR AND CLERK Depressive disorder Body mass index (BMI) 25.0-25.9; adult Z68.25 (ICD-10-CM ) 10/09 Removed 10/09 Ye Pringle DO Body mass index [BMI] 25.0-25.9, adult Body mass index (BMI) 28.0-28.9; adult Z68.28 (ICD-10-CM ) 08/14 Correction 08/14 Ye Pringle DO Body mass index [BMI] 28.0-28.9, adult Hypertensio n 19295234 (SNOMED CT) 10/09 Active 10/09 Ye Pringle DO Hypertensive disorder Counseling for nutrition Z71.3 (ICD-10-CM ) 08/14 Inactive 08/14 Shalonda G Karma INSPECTOR AND CLERK Dietary counseling and surveillance Body mass index (BMI) 28.0-28.9; adult Z68.28 (ICD-10-CM ) 08/14 Removed 08/14 Shalonda G [place] INSPECTOR AND CLERK Body mass index [BMI] 28.0-28.9, adult Body mass index (BMI) 26.0-26.9; adult Z68.26 (ICD-10-CM ) 08/13 Correction 08/13 Shalonda G Karma INSPECTOR AND CLERK Body mass index [BMI] 26.0-26.9, adult Counseling for nutrition Z71.3 (ICD-10-CM ) 07/10 Inactive 07/10 Kimberly Jean APRN Dietary counseling and surveillance Counseling for nutrition Z71.3 (ICD-10-CM ) 08/13 Inactive 08/13 Shalonda G [place] INSPECTOR AND CLERK Dietary counseling and surveillance Body mass index (BMI) 26.0-26.9; adult Z68.26 (ICD-10-CM ) 08/13 Removed 08/13 Shalonda G [place] INSPECTOR AND CLERK Body mass index [BMI] 26.0-26.9, adult Body mass index (BMI) 23.0-23.9; adult Z68.23 (ICD-10-CM ) 03/20 Correction 03/20 Shalonda G [place] INSPECTOR AND CLERK Body mass index [BMI] 23.0-23.9, adult Counseling for nutrition Z71.3 (ICD-10-CM ) 03/20 Inactive 03/20 Shalonda G Karma INSPECTOR AND CLERK Dietary counseling and surveillance Body mass index (BMI) 23.0-23.9; adult Z68.23 (ICD-10-CM ) 03/20 Removed 03/20 Shalonda G [place] INSPECTOR AND CLERK Body mass index [BMI] 23.0-23.9, adult Body mass index (BMI) 24.0-24.9; adult Z68.24 (ICD-10-CM ) 12/19 Correction 12/19 Shalonda G Karma INSPECTOR AND CLERK Body mass index [BMI] 24.0-24.9, adult Counseling for nutrition Z71.3 (ICD-10-CM ) 12/19 Inactive 12/19 Shalonda G [place] INSPECTOR AND CLERK Dietary counseling and surveillance Body mass index (BMI) 24.0-24.9; adult Z68.24 (ICD-10-CM ) 12/19 Removed 12/19 Shalonda G [place] INSPECTOR AND CLERK Body mass index [BMI] 24.0-24.9, adult Body mass index (BMI) 24.0-24.9; adult Z68.24 (ICD-10-CM ) 12/12 Correction 12/12 Shalonda Ankit Karma NAVARROP Body mass index [BMI] 24.0-24.9, adult Vitamin D deficiency 20887205 (SNOMED CT) 12/12 Active 12/12 Cain Patel [...] ) 08/16 Removed 08/16 Shalonda Ankit Randolphon INSPECTOR AND CLERK Body mass index [BMI] 21.0-21.9, adult Body mass index (BMI) 20.0-20.9; adult Z68.20 (ICD-10-CM ) 08/16 Correction 08/16 Shalonda Ankit Randolphon INSPECTOR AND CLERK Body mass index [BMI] 20.0-20.9, adult Body mass index (BMI) 20.0-20.9; adult Z68.20 (ICD-10-CM ) 08/16 Removed 08/16 Ladonna Kwok MD Body mass index [BMI] 20.0-20.9, adult Physical exam 6778315 (SNOMED CT) 08/16 Inactive 08/16 Ladonna Kwok MD Physical examination Counseling for nutrition Z71.3 (ICD-10-CM ) 08/16 Inactive 08/16 Ladonna Kwok MD Dietary counseling and surveillance Body mass index (BMI) 20.0-20.9; adult Z68.20 (ICD-10-CM ) 07/02 Correction 07/02 Ladonna Kwok MD Body mass index [BMI] 20.0-20.9, adult Counseling for nutrition Z71.3 (ICD-10-CM ) 07/02 Inactive 07/02 Shalonda Randolphon INSPECTOR AND CLERK Dietary counseling and surveillance Body mass index (BMI) 20.0-20.9; adult Z68.20 (ICD-10-CM ) 07/02 Removed 07/02 Shalonda G [place] INSPECTOR AND CLERK Body mass index [BMI] 20.0-20.9, adult Body mass index (BMI) 21.0-21.9; adult Z68.21 (ICD-10-CM ) 12/24 Correction 12/24 Shalonda G [place] INSPECTOR AND CLERK Body mass index [BMI] 21.0-21.9, adult Body mass index (BMI) 21.0-21.9; adult Z68.21 (ICD-10-CM ) 12/24 Removed 12/24 Alva Dee APRN Body mass index [BMI] 21.0-21.9, adult Body mass index (BMI) 21.0-21.9; adult Z68.21 (ICD-10-CM ) 12/06 Correction 12/06 Alva Dee APRN Body mass index [BMI] 21.0-21.9, adult Counseling for nutrition Z71.3 (ICD-10-CM ) 12/06 Inactive 12/06 Shalonda G [place] INSPECTOR AND CLERK Dietary counseling and surveillance Body mass index (BMI) 21.0-21.9; adult Z68.21 (ICD-10-CM ) 12/06 Removed 12/06 Shalonda MARTINEZ Body mass index [BMI] 21.0-21.9, adult Acute gouty arthropathy - ? OF 847354684 (SNOMED CT) 12/10 Resolved 12/10 aMdina Munoz APRN Gouty arthropathy Acute gouty arthropathy - ? OF 932503166 (SNOMED CT) 12/10 Removed 12/10 Madina Munoz APRN Gouty arthropathy Seizure disorder 726074670 (SNOMED CT) Active Madina Munoz APRN Seizure disorder Myocardial infarction, anterior wall - HX OF 64650583 (SNOMED CT) Active Madina Munoz APRN Myocardial infarction Hx of CVA - R HEMIPARESIS 289969787 (SNOMED CT) Active Madina Munoz APRN History of cerebrovascular accident Other and unspecified mitral valve diseases 60689932 (SNOMED CT) Active Madina Munoz APRN Mitral valve disorder ELEVATED BP READING WITHOUT DX HYPERTENSIO N R03.0 (ICD-10-CM ) 07/19 Resolved 07/19 Madina Munoz APRN Elevated blood-pressure reading, without diagnosis of hypertension KNEE PAIN, RIGHT 68157246 (SNOMED CT) 08/03 Resolved 08/03 Madina Munoz APRN Knee pain ABDOMINAL PAIN 23605690 (SNOMED CT) 08/23 Resolved 08/23 Madina Munoz APRN Abdominal pain DIARRHEA 54393738 (SNOMED CT) 08/23 Resolved 08/23 Madina Munoz APRN Diarrhea Cardiomyopa thy 44191188 (SNOMED CT) 08/23 Active 08/23 Madina Munoz APRN Cardiomyopathy Drug abuse, hx of 209292821 (SNOMED CT) 08/23 Active 08/23 Madina Munoz APRN History of drug abuse ENCOUNTERS UNSPECIFIED ADMINISTRAT HAIDER PURPOSE Z02.89 (ICD-10-CM ) 02/06 Resolved 02/06 Madina Munoz APRN Encounter for other administrative examinations Tobacco abuse 28289383 (SNOMED CT) Active Madina Munoz APRN Tobacco dependence syndrome Anxiety 306896344 (SNOMED CT) Active Merlin Hernandez MD Anxiety disorder ENCOUNTERS UNSPECIFIED ADMINISTRAT HAIDER PURPOSE Z02.89 (ICD-10-CM ) 02/06 Removed 02/06 Merlin Hernandez MD Encounter for other administrative examinations 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 (SNOMED CT) 02/06 Active 02/06 Merlin Hernandez MD Anoxic encephalopathy DRUG ABUSE 54963253 (SNOMED CT) 08/23 Inactive 08/23 Merlin Hernandez MD Drug abuse HEART MURMUR, SYSTOLIC 65990662 (SNOMED CT) 08/23 Inactive 08/23 Merlin Hernandez MD Systolic murmur DIARRHEA 84011212 (SNOMED CT) 08/23 Removed 08/23 Merlin Hernandez MD Diarrhea ABDOMINAL PAIN 60292431 (SNOMED CT) 08/23 Removed 08/23 Merlin Hernandez MD Abdominal pain KNEE PAIN, RIGHT 31634259 (SNOMED CT) 08/03 Removed 08/03 Madina Munoz APRN Knee pain CERVICAL MUSCLE STRAIN 645055648 (SNOMED CT) 07/19 Resolved 07/19 Madina Munoz APRN Strain of neck muscle CERVICAL MUSCLE STRAIN 941014979 (SNOMED CT) 07/19 Removed 07/19 Madina Munoz [...] for 10 days for DENTAL PAIN. ibuprofen 07548928629 Gisell Diana on DMD RA VITAMIN C 250 MG TABS Take 1 tablet by mouth single dose ascorbic acid (vitamin c) 61641442440 [facility] 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 LISINOPRIL 10 MG TABS Take 1 tablet by mouth once a day TAKE ONE TABLET BY MOUTH DAILY lisinopril 77689065679 [facility] 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 OMEPRAZOLE 20 MG CPDR Take 1 capsule by mouth once a day 11/28 omeprazole 28752240161 [facility] 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 CARVEDILOL 25 MG TABS Take 1 tablet by mouth twice a day TAKE ONE TABLET BY MOUTH TWICE A DAY carvedilol 00654380731 [facility] 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 ASPIRIN LOW DOSE 81 MG TBEC Take 1 tablet by mouth once a day aspirin 68285044425 [facility] 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 FLUOXETINE HCL 20 MG CAPS Take 1 capsule by mouth once a day 08/21 fluoxetine 47463221083 Lucrecia Samano PMHNP MIRTAZAPINE 45 MG TABS Take 1 tablet by mouth at bedtime mirtazapine 48539994743 Lucrecia Samano PMHNP FLUOXETINE HCL 20 MG CAPS Take 1 capsule by mouth once a day 07/19 fluoxetine 56365394141 Lucreciabandar Samano PMHNP MIRTAZAPINE 45 MG TABS TAKE ONE TABLET BY MOUTH AT BEDTIME mirtazapine 23207094432 Lucrecia Samano PMHNP OMEPRAZOLE 20 MG CPDR Take 1 capsule by mouth once a day omeprazole 00002022810 Olga Reena DO LISINOPRIL 2.5 MG TABS TAKE ONE TABLET BY MOUTH DAILY lisinopril 49724987165 Olga Reena DO MIRTAZAPINE 45 MG TABS Take 1 tablet by mouth at bedtime 01/14 mirtazapine 67273583560 Nona Hayes 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 BCADM MIRTAZAPINE 45 MG TABS TAKE ONE TABLET BY MOUTH AT BEDTIME mirtazapine 57796788490 Lucreciabandar Samano PMHNP MIRTAZAPINE 45 MG TABS Take 1 tablet by mouth at bedtime mirtazapine 35175720458 Lucrecia Samano PMHNP FLUOXETINE HCL 20 MG CAPS Take 1 capsule by mouth once a day fluoxetine 06892078140 Lucrecia Samano PMHNP LISINOPRIL 2.5 MG TABS TAKE ONE TABLET BY MOUTH DAILY lisinopril 16725984269 Olga Reena DO FLUOXETINE HCL 20 MG CAPS Take 1 capsule by mouth once a day 01/21 fluoxetine 24519371094 Shalonda Parada INSPECTOR AND CLERK LISINOPRIL 2.5 MG TABS Take 1 tablet by mouth once a day 08/24 lisinopril 70897648252 Diana Ny 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 LISINOPRIL 2.5 MG TABS TAKE ONE TABLET BY MOUTH DAILY lisinopril 96497957877 Olga Reena DO LISINOPRIL 2.5 MG TABS Take 1 tablet by mouth once a day lisinopril 85397679082 Olga Reena DO LISINOPRIL 2.5 MG TABS Take 1 tablet by mouth once a day lisinopril 74603816745 Clara Ishan SD FLUOXETINE HCL 20 MG CAPS Take 1 capsule by mouth once a day 10/09 fluoxetine 97392098825 Shalonda Parada INSPECTOR AND CLERK FLUOXETINE HCL 20 MG CAPS Take 1 capsule by mouth once a day 07/17 fluoxetine 68801086239 Shalonda Parada INSPECTOR AND CLERK MIRTAZAPINE 45 MG TABS Take 1 tablet by mouth at bedtime mirtazapine 64993683651 Shalonda Parada INSPECTOR AND CLERK LISINOPRIL 2.5 MG TABS Take 1 tablet by mouth once a day lisinopril 80870194201 Alva Benjamin APRN MIRTAZAPINE 45 MG TABS Take 1 tablet by mouth every night 01/15 mirtazapine 95189195031 Nirav Carvalho MD BUSPIRONE HCL 5 MG TABS Take 1 tablet by mouth twice a day for anxiety 12/16 buspirone 49422006900 Nirav Carvalho MD MIRTAZAPINE 45 MG TABS 11/18 mirtazapine 26542170824 Emily Joel MA MIRTAZAPINE 45 MG TABS Take 1 tablet by mouth every night 12/18 mirtazapine 91244920464 Nirav Carvalho MD BUSPIRONE HCL 5 MG TABS Take 1 tablet by mouth twice a day for anxiety 12/18 buspirone 63374820133 Nirav Carvalho MD MIRTAZAPINE 45 MG TABS mirtazapine 51195412621 Emily Joel MA FLUOXETINE HCL 20 MG CAPS Take 1 capsule by mouth twice a day fluoxetine 11109726438 Olga Reena DO CARVEDILOL 25 MG TABS Take 1 tablet by mouth twice a day TAKE ONE TABLET BY MOUTH TWICE A DAY carvedilol 63267794947 Olga Reena DO ASPIRIN EC 81 MG TBEC Take 1 tablet by mouth once a day aspirin 62233144842 Olga Reena DO calcium citrate-vitamin D3 250 mg-5 mcg (200 unit) tablet Take 1 tablet by mouth once a day 10/20 calcium citrate-vitamin d3 29060548170 Radha Carr MA FLUOXETINE HCL 20 MG CAPS Take 1 capsule by mouth twice a day 10/22 fluoxetine 51849652999 Michael Bang APRN MIRTAZAPINE 45 MG TABS Take 1 tablet by mouth every night 10/22 mirtazapine 54067569276 Michael Bang APRN CARVEDILOL 25 MG TABS TAKE ONE TABLET BY MOUTH TWICE A DAY 08/25 carvedilol 24530486692 Jennifer Aguero 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 CARVEDILOL 25 MG TABS Take 1 tablet by mouth twice a day TAKE ONE TABLET BY MOUTH TWICE A DAY carvedilol 72138883401 Salome Moya 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 CARVEDILOL 25 MG TABS TAKE ONE TABLET BY MOUTH TWICE A DAY carvedilol 11655838511 Olga Reena DO LISINOPRIL 2.5 MG TABS Take 1 tablet by mouth once a day lisinopril 52354890179 Olga Reena DO calcium citrate-vitamin D3 250 mg-5 mcg (200 unit) tablet Take 1 tablet by mouth once a day calcium citrate-vitamin d3 51004032855 Radha Carr MA VITAMIN C 250 MG TABS Take 1 tablet by mouth single dose ascorbic acid (vitamin c) 02174306775 Radha Carr MA CARVEDILOL 25 MG TABS TAKE ONE TABLET BY MOUTH TWICE A DAY 07/28 carvedilol 45080844486 Jennifer Aguero APRN LISINOPRIL 2.5 MG TABS Take 1 tablet by mouth once a day lisinopril 90025151362 Jennifer Laci BLANKENSHIPN MIRTAZAPINE 45 MG TABS Take 1 tablet by mouth every night mirtazapine 72304383778 Shalonda MARTINEZ CARVEDILOL 25 MG TABS Take 1 tablet by mouth twice a day 11/18 carvedilol 63073926305 Jennifer Aguero APRN VITAMIN D 50 MCG (2000 UT) TABS Take 1 tablet by mouth once a day cholecalciferol (vitamin d3) 74527930587 Jennifer Aguero APRN FLUOXETINE HCL 20 MG CAPS Take 1 capsule by mouth twice a day fluoxetine 68222380969 Shalonda MARTINEZ ASPIRIN EC 81 MG TBEC Take 1 tablet by mouth once a day aspirin 80529618161 Jennifer Laci BLANKENSHIPN KEPPRA 750 MG TABS Take 1 tablet by mouth twice a day levetiracetam 34393020276 Jennifer Gregoriojay 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 CARVEDILOL 25 MG TABS TAKE ONE TABLET BY MOUTH TWICE A DAY carvedilol 10107948509 Olga Reena DO MIRTAZAPINE 30 MG TABS Take 1 at bedtime MIRTAZAPINE 51014450854 Shaila Lopez MA MIRTAZAPINE 45 MG TABS Take 1 at bedtime. Please disregard rx for 30 mg. MIRTAZAPINE 93336040295 Shalonda MARTINEZ FLUOXETINE HCL 20 MG CAPS TAKE ONE CAPSULE BY MOUTH TWICE A DAY FLUOXETINE HCL 02961500940 Shalonda MARTINEZ MEGESTROL ACETATE 20 MG TABS take one tablet by mouth twice a day 0 MEGESTROL ACETATE 23162630529 Emma Nieto RMA PROZAC 20 MG CAPS Take 1 twice a day FLUOXETINE HCL 42233487945 Shalonda MARTINEZ LISINOPRIL 2.5 MG TABS TAKE ONE TABLET BY MOUTH DAILY LISINOPRIL 10456444776 Olga Reena DO KEPPRA 750 MG TABS TAKE ONE TABLET BY MOUTH TWICE A DAY LEVETIRACETAM 61705347037 Kimberly Jean APRN PROZAC 20 MG CAPS TAKE 1 CAPSULE BY MOUTH EVERY MORNINGfor 7 days then increase to 2 daily. FLUOXETINE HCL 83643482247 Shalonda MARTINEZ PAROXETINE HCL 40 MG TABS TAKE 1 TABLET BY MOUTH ONCE A DAY 08/13 PAROXETINE HCL 04639280143 Radha Carr MA MIRTAZAPINE 30 MG TABS Take 1 at bedtime MIRTAZAPINE 06251791612 Shalonda MARTINEZ VITAMIN D 50 MCG (1999 UT) TABS TAKE 1 TABLET BY MOUTH ONCE A DAY CHOLECALCIFEROL 68816988291 Kimberly Jean APRN TIZANIDINE HCL 4 MG CAPS Take 1 tablet by mouth daily 12/12 TIZANIDINE HCL 66343853210 Cain Patel MD BACLOFEN 10 MG TABS TAKE 1 TABLET 2 TIMES DAILY NEEDED FOR MUSCLES 12/12 BACLOFEN 13310819012 Cain Patel MD MIRTAZAPINE 45 MG TABLET TAKE ONE TABLET BY MOUTH EVERY NIGHT AT BEDTIME MIRTAZAPINE 75835393556 Shalonda MARTINEZ KEPPRA 750 MG TABS TAKE ONE TABLET BY MOUTH TWICE A DAY LEVETIRACETAM 53878788450 Kimberly Bishop [place] LISINOPRIL 2.5 MG TABS TAKE ONE TABLET BY MOUTH DAILY LISINOPRIL 45663260458 Kimberly Hurtadobing [place] CARVEDILOL 25 MG TABS TAKE ONE TABLET BY MOUTH TWICE A DAY CARVEDILOL 28855924760 Nabeel Donovan MARISA MEGESTROL ACETATE 20 MG TABS take one tablet by mouth twice a day MEGESTROL ACETATE 16280010249 Shalonda Ankit Karma MARTINEZ TIZANIDINE HCL 4 MG CAPS Take 1 tablet by mouth daily TIZANIDINE HCL 87709416016 Cain Patel MD INDOMETHACIN 25 MG CAPS TAKE 2 TABLETS BY MOUTH EVERY 8 HOURS x 5-7 DAYS NEEDED 07/25 INDOMETHACIN 15634158005 Madina Munoz APRN BACLOFEN 10 MG TABS TAKE 1 TABLET 2 TIMES DAILY NEEDED FOR MUSCLES BACLOFEN 46955972464 Cain Patel MD ASPIR-LOW 81 MG ORAL TABLET DELAYED RELEASE TAKE 1 TABLET BY MOUTH 1 TIME A DAY ASPIRIN 30711879416 Cain Patel MD INDOMETHACIN 25 MG CAPS TAKE 2 TABLETS BY MOUTH EVERY 8 HOURS x 5-7 DAYS NEEDED INDOMETHACIN [id number] Madina Munoz APRN CHANTIX CONTINUING MONTH MICHELLE 1 MG ORAL TABLET TAKE 1 TABLET TWICE A DAY 12/01 VARENICLINE TARTRATE [id number] Cristela Teresa APRN KLONOPIN 1 MG TABS TAKE 1 TABLET BY MOUTH 2 TIMES A DAY FOR PANIC/ANXIETY 09/08 CLONAZEPAM [id number] Cristela Teresa APRN REMERON 45 MG ORAL TABLET TAKE 1 TABLET AT BEDTIME MIRTAZAPINE [id number] Shalonda G Karma MARTINEZ KLONOPIN 1 MG TABS TAKE 1 TABLET BY MOUTH 2 TIMES A DAY FOR PANIC/ANXIETY CLONAZEPAM 06646806185 Cristela Teresa APRN PAROXETINE HCL 40 MG TABS TAKE 1 TABLET BY MOUTH ONCE A DAY 07/09 PAROXETINE HCL 92410646075 Cristela Brii [place] HYDROXYZINE HCL 25 MG TABS TAKE 1 TABLET BY MOUTH EVERY 8 HOURS NEEDED FOR ANXIETY 07/09 HYDROXYZINE HCL 76640221290 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 Teresa 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 PAROXETINE HCL 40 MG TABS TAKE 1 TABLET BY MOUTH ONCE A DAY PAROXETINE HCL 15806984146 Shalonda Parada 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 AND CLERK CHANTIX STARTING MONTH MICHELLE 0.5 MG X 11 & 1 MG X 42 ORAL TABLET USE DIRECTED 07/18 VARENICLINE TARTRATE 13332237017 Madina Munoz APRN CHANTIX CONTINUING MONTH MICHELLE 1 MG ORAL TABLET TAKE 1 TABLET TWICE A DAY VARENICLINE TARTRATE 98917785125 Madina Munoz APRN HYDROXYZINE HCL 25 MG TABS TAKE 1 TABLET BY MOUTH EVERY 8 HOURS NEEDED FOR ANXIETY HYDROXYZINE HCL 33563701749 Madina Munoz APRN PANTOPRAZOLE SODIUM 40 MG TBEC TAKE 1 BY MOUTH EACH DAY PANTOPRAZOLE SODIUM 67897201317 Madina Munoz APRN DICLOFENAC SODIUM 75 MG TBEC TAKE 1 TAB BY MOUTH 2 TIMES A DAY NEEDED FOR PAIN DICLOFENAC SODIUM 48649507389 Madina Munoz APRN CIPROFLOXACIN HCL 500 MG TABS TAKE 1 TABLET BY MOUTH 2 TIMES A DAY x 5 days CIPROFLOXACIN HCL 70116116873 Madina Munoz APRN KLONOPIN 1 MG TABS TAKE 1 TABLET BY MOUTH 3 TIMES A DAY FOR PANIC/ANXIETY CLONAZEPAM 08736621119 Cristela Teresa APRN CHANTIX STARTING MONTH MICHELLE 0.5 MG X 11 & 1 MG X 42 ORAL TABLET USE DIRECTED 07/18 VARENICLINE TARTRATE 30607352730 Madina Munoz APRN CHANTIX CONTINUING MONTH MICHELLE 1 MG ORAL TABLET TAKE 1 TABLET TWICE A DAY VARENICLINE TARTRATE 39047050317 Madina Munoz APRN KLONOPIN 1 MG TABS TAKE 1 TABLET BY MOUTH 3 TIMES A DAY FOR PANIC/ANXIETY CLONAZEPAM 73285185817 Cristela Teresa APRN REMERON 30 MG TABS TAKE 1 TABLET BY MOUTH AT BEDTIME MIRTAZAPINE 99571025180 Cristela Teresa APRN KLONOPIN 1 MG TABS TAKE 1 TABLET BY MOUTH 2 TIMES A DAY FOR PANIC/ANXIETY CLONAZEPAM 31496695990 Cristela Teresa 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 03/04 HYDROXYZINE HCL 75513128440 Cristela Teresa APRN QUETIAPINE FUMARATE 200 MG TABS ONE PO QHS. 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 HYDROXYZINE HCL 45370164620 Merlin Hernandez MD FLUOXETINE HCL 40 MG CAPS 1 cap by mouth daily FLUOXETINE HCL 62567151113 Merlin Hernandez MD TRAZODONE HCL 50 MG TABS 1 tab by mouth nightly as needed for insomnia. 0 TRAZODONE HCL 05456503029 Génesis Sahu RN QUETIAPINE FUMARATE 200 MG TABS ONE PO QHS. QUETIAPINE FUMARATE 90592178083 Merlin Hernandez MD TRAZODONE HCL 50 MG TABS 1 tab by mouth nightly as needed for insomnia. TRAZODONE HCL 97203836729 Merlin Hernandez MD SEROQUEL 200 MG TABS TAKE 1 TABLET BY MOUTH EVERY NIGHT AT BEDTIME QUETIAPINE FUMARATE 52473682726 Merlin Hernandez MD PHENYTOIN SODIUM EXTENDED 100 MG CAPS 1 cap by mouth every 8 hours PHENYTOIN SODIUM EXTENDED 43432536460 Merlin Hernandez MD LISINOPRIL 2.5 MG TABS TAKE 1 TABLET BY MOUTH 1 TIME A DAY LISINOPRIL 30654115793 Ye Pringle DO KEPPRA 750 MG TABS 2 tabs by mouth twice daily LEVETIRACETAM 96089400543 Merlin Hernandez MD PROZAC 20 MG CAPS TAKE 1 BY MOUTH EVERY MORNING FLUOXETINE HCL 42693442227 Merlin Hernandez MD CARVEDILOL 25 MG TABS TAKE 1 TABLET BY MOUTH 2 TIMES A DAY CARVEDILOL 72027055180 Ye Pringle DO ASPIR-LOW 81 MG ORAL TABLET DELAYED RELEASE TAKE 1 TABLET BY MOUTH 1 TIME A DAY ASPIRIN 42129022222 Merlin Hernandez MD PANTOPRAZOLE SODIUM 40 MG TBEC TAKE 1 BY MOUTH EACH DAY PANTOPRAZOLE SODIUM 60524754790 Merlin Hernandez MD CIPROFLOXACIN HCL 500 MG TABS TAKE 1 TABLET BY MOUTH 2 TIMES A DAY x 5 days CIPROFLOXACIN HCL 47882977865 Merlin Hernandez MD PROMETHAZINE HCL 12.5 MG TABS TAKE 1 BY MOUTH EVERY 6 HRS NEEDED FOR NAUSEA/VOMITING 201408/26 PROMETHAZINE HCL 74006766153 Merlin Hernandez MD DICLOFENAC SODIUM 75 MG TBEC TAKE 1 TAB BY MOUTH 2 TIMES A DAY NEEDED FOR PAIN DICLOFENAC SODIUM 77100938366 Madina Munoz APRN Medications Administered No information [...] in Blood ABS NEUTROPH 4729 CELLS/UL 10*3/uL 4333-5441 N Neutrophils [#/volume] in Blood Lab Report: [...] CCC & HP forms LABS ORDERED Accucheck 87367 Laboratory tests ordered BG RANDOM 96 mg/dL Glucose [Mass/volume] in Blood Plan of Care Type Date Detail Referral [facility] Castellano[facility]Ne[facility], [address] , [place], [address] Referral Neurology Referr corazon [facility] [place] [facility], [address], [place], [address] Referral Cardiology [facility] [place] [facility] [place], [address], [place], [address] Referral Gastroenterology Referral [place] [facility], [address], [place], [address] Pending order Accucheck 90826 Pending order T1 CBC no diff Pending [...] Pending order Uric Acid Pending order SNOMED-CT: 37385 3000 Smoking Cessation Counseling Pending order SNOMED-CT: 80200 [id number] Current Medications Documented Pending order Medication Recon ciliation Pending order 93065 ESTAB efoc /efoc/low Pending order Medication Recon ciliation Pending order SNOMED-CT: 11374 [id number] Current Medications Documented Pending order Urine Drug Scree n w/o Confirmation Pending Order exclud ed from report: Pending order Medication Recon ciliation Pending order 35893 ESTAB efoc /efoc/low Pending order Urine Drug Scree n w/o Confirmation Pending order 47853 ESTAB efoc /efoc/low Pending order 97592 ESTAB efoc /efoc/low Pending order SNOMED-CT: 22746 3000 Smoking Cessation Counseling Pending order SNOMED-CT: 14050 [id number] Current Medications Documented Pending order 10676 ESTAB efoc /efoc/low Pending order Urine Drug Scree n w/o Confirmation Pending order Psych Dx Eval WI TH E&M -MD/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 Pending order SNOMED-CT: 60681 [id number] Current Medications Documented Pending order Phenytoin (Jamshid [...] Procedures Code Procedure Name Date Entry Date [facility]-[id number] Medication Reconciliation CPT-3075F Most recent systolic blood pressure 130-139 mm Hg CPT-3079F Most recent diastoli c blood pressure 80-89 mm Hg CPT-0513F Elevated blood press ure plan of care documented CPT-1159F Medication list docu mented in medical record CPT-1160F Review of all medica tions by a prescribing practitioner 4004F Patient screened for tobacco use and received tobacco cessation intervention SCT-[id number] Current every day smoker 21/07/15 SCT-[id number] Smoking cessation education SCT-[id number] Medication Reconciliation CPT-3074F Most recent systolic blood pressure <130 mm Hg CPT-3079F Most recent diastoli c blood pressure 80-89 mm Hg CPT-1159F Medication list docu mented in medical record CPT-1160F Review of all medica tions by a prescribing practitioner SCT-142607338 Current every day smoker 20 19/04/15 4004F Patient screened for tobacco use and received tobacco cessation intervention SCT-[id number] Smoking cessation education [facility] 1759 T1 CBC no diff [facility] 73361 T1 CMP [facility] 496 T1 HGBA1c [facility] 68630 T1 Lipid Panel [facility] 41634 T1 TSH reflex to free T4 10/04/14 50586 Fluzone Quadrivalent CPT-06499 IMADM >18YR IM ROUTE 1ST VAC/TOXOID 04/05 CPT-1159F Medication list docu mented in medical record SCT-[id number] Medication Reconciliation CPT-3075F Most recent systolic blood pressure 130-139 mm Hg CPT-3079F Most recent diastoli c blood pressure 80-89 mm Hg CPT-1159F Medication list docu mented in medical record CPT-1160F Review of all medica tions by a prescribing practitioner 4004F Patient screened for tobacco use and received tobacco cessation intervention SCT-062095852 Current every day smoker 20 17/01/18 SCT-147851658 Smoking cessation education SCT-714967527777326 Medication Reconciliation CPT-3075F Most recent systolic blood pressure 130-139 mm Hg 4004F Patient screened for tobacco use and received tobacco cessation intervention SCT-[id number] Medication Reconciliation 4004F Patient screened for tobacco use and received tobacco cessation intervention CPT-3077F Most recent systolic blood pressure >=140 mm Hg CPT-1159F Medication list docu mented in medical record CPT-1160F Review of all medica tions by a prescribing practitioner X-Ray Hand Right X-Ray Hand Right [facility] 1759 T1 CBC no diff [facility] 86679 T1 CMP [facility] 496 T1 HGBA1c [facility] 94970 T1 Lipid Panel [facility] 29121 T1 TSH reflex to free T4 10/01/03 [facility] 36571 T2 Vitamin D 25 Hydroxy 2023 4004F Patient screened for tobacco use and received tobacco cessation intervention CPT-3075F Most recent systolic blood pressure 130-139 mm Hg SCT-[id number] Medication Reconciliation SCT-807824417638602 Medication Reconciliation CPT-3074F Most recent systolic blood pressure <130 mm Hg CPT-3078F Most recent diastoli c blood pressure <80 mm Hg SCT-692035021277393 Medication Reconciliation 4004F Patient screened for tobacco use and received tobacco cessation intervention CPT-3074F Most recent systolic blood pressure <130 mm Hg CPT-3078F Most recent diastoli c blood pressure <80 mm Hg SCT-065488134531182 Medication Reconciliation CPT-3074F Most recent systolic blood pressure <130 mm Hg CPT-3078F Most recent diastoli c blood pressure <80 mm Hg CPT-1159F Medication list docu mented in medical record CPT-1160F Review of all medica tions by a prescribing practitioner [facility] 10034 T1 CMP Other [facility] Other - Patient Pay [facility] 6399 T1 CBC with diff [facility] 79275 T1 TSH reflex to free T4 09/01/23 [facility]-[id number] Medication Reconciliation 4004F Patient screened for tobacco use and received tobacco cessation intervention CPT-3074F Most recent systolic blood pressure <130 mm Hg CPT-3079F Most recent diastoli c blood pressure 80-89 mm Hg Other [facility] Other - Patient Pay 4004F Patient screened for tobacco use and received tobacco cessation intervention SCT-[id number] Medication Reconciliation CPT-3074F Most recent systolic blood pressure <130 mm Hg CPT-3078F Most recent diastoli c blood pressure <80 mm Hg CPT-1159F Medication list docu mented in medical record CPT-1160F Review of all medica tions by a prescribing practitioner [facility] 6399 T1 CBC with diff [facility] 927 T1 B12 [facility] 38006 T1 CMP [facility] 496 T1 HGBA1c [facility] 69155 T1 Lipid Panel [facility] 94892 T1 TSH reflex to free T4 08/29/23 [facility] 96211 T2 Vitamin D 25 Hydroxy 2022 4004F Patient screened for tobacco use and received tobacco cessation intervention CPT-3075F Most recent systolic blood pressure 130-139 mm Hg CPT-3079F Most recent diastoli c blood pressure 80-89 mm Hg SCT-[id number] Medication Reconciliation SCT-935582714786650 Medication Reconciliation CPT-07761 Pfizer COVID-19 Saran -sucrose 30 mcg/0.3 mL Booster (servin cap >=12 y) CPT-0054A Pfizer COVID-19 Saran -sucrose Booster Immunization admin CPT-3074F Most recent systolic blood pressure <130 mm Hg CPT-3079F Most recent diastoli c blood pressure 80-89 mm Hg SCT-911215911120921 Medication Reconciliation 94500 Fluzone Quadrivalent CPT-45550 IMADM >18YR IM ROUTE 1ST VAC/TOXOID 04/12 CPT II 4004F Patient screened for tobacco use and received tobacco cessation intervention SCT-[id number] Medication Reconciliation CPT-3074F Most recent systolic blood pressure <130 mm Hg CPT-3079F Most recent diastoli c blood pressure 80-89 mm Hg CPT-1159F Medication list docu mented in medical record CPT-1160F Review of all medica tions by a prescribing practitioner [facility]-[id number] Medication Reconciliation CPT II 4004F Patient screened [...] diastoli c blood pressure 80-89 mm Hg SCT-063932792413407 Medication Reconciliation CPT II 4004F Patient screened for tobacco use and received tobacco cessation intervention CPT-3074F Most recent systolic blood pressure <130 mm Hg CPT-3079F Most recent diastoli c blood pressure 80-89 mm Hg CPT-1159F Medication list docu mented in medical record CPT-1160F Review of all medica tions by a prescribing practitioner [facility] 6399 T1 CBC with diff [facility] 24868 T1 CMP [facility] 68267 T1 TSH reflex to free T4 07/31/25 [facility] 65218 T1 Lipid Panel [facility] 16859 T2 Vitamin D 25 Dihydroxy 20 16/10/25 SCT-[id number] Medication Reconciliation SCT-214435711030319 Medication Reconciliation 16211 Fluzone Quadrivalent CPT-75688 IMADM >18YR IM ROUTE 1ST VAC/TOXOID 04/21 CPT-3074F Most recent systolic blood pressure <130 mm Hg CPT-3078F Most recent diastoli c blood pressure <80 mm Hg SCT-945133010671682 Medication Reconciliation CPT-3075F Most recent systolic blood pressure 130-139 mm Hg CPT-3077F Most recent systolic blood pressure >=140 mm Hg CPT-3078F Most recent diastoli c blood pressure <80 mm Hg SCT-977046625093012 Medication Reconciliation [facility] 6399 T1 CBC with diff [facility] 25978 T1 CMP [facility] 496 T1 HGBA1c [facility] 75021 T1 Lipid Panel [facility] 72787 T1 TSH reflex to free T4 06/30/26 CPT-3075F Most recent systolic blood pressure 130-139 mm Hg CPT-3079F Most recent diastoli c blood pressure 80-89 mm Hg CPT-1159F Medication list docu mented in medical record CPT-3075F Most recent systolic blood pressure 130-139 mm Hg CPT-3075F Most recent systolic blood pressure 130-139 mm Hg SCT-912811456684979 Medication Reconciliation SCT-686795460432217 Medication Reconciliation CPT-3075F Most recent systolic blood pressure 130-139 mm Hg CPT-3079F Most recent diastoli c blood pressure 80-89 mm Hg 14402 Flulaval Quadrivalent CPT-74961 IMADM >18YR IM ROUTE 1ST VAC/TOXOID 04/22 CPT-1159F Medication list docu mented in medical record CPT-1160F Review of all medica tions by a prescribing practitioner CPT-3077F Most recent systolic blood pressure >=140 mm Hg SCT-679723313391922 Medication Reconciliation SCT-158611465932064 Medication Reconciliation [facility] 6399 T1 CBC with diff [facility] 53941 T1 CMP [facility] 24833 T1 Lipid Panel [facility] 01690 T1 TSH reflex to free T4 202 [facility] 81440 T2 HGB Electrophoresis 10/24 [facility] 32897 T2 Vitamin D 25 Dihydroxy 20 14/10/29 SCT-602235425821452 Medication Reconciliation CPT-3077F Most recent systolic blood pressure >=140 mm Hg CPT-3078F Most recent diastoli c blood pressure <80 mm Hg CPT-3075F Most recent systolic blood pressure 130-139 mm Hg SCT-875783457070276 Medication Reconciliation CPT-96419 Fluzone Quadrivalent Preservative Free prefilled syringe (36 mos +) CPT-96094 IMADM >18YR IM ROUTE 1ST VAC/TOXOID 04/13 [facility] 47147 T2 Vitamin D 25 Hydroxy 2018 SCT-962162499248523 Medication Reconciliation CPT-29893 Venipuncture 64196 4 CPT-3077F Most recent systolic blood pressure >=140 mm Hg SCT-084854177 SNOMED-CT: 480525172 Smoking Cessation Counseling SCT-982834488816501 SNOMED-CT: 740555139 890506 Current Medications Documented [facility] 02055 T1 CMP CPT-3077F Most recent systolic blood pressure >=140 mm Hg SCT-485964266904185 Medication Reconciliation SCT-526254872646545 Medication Reconciliation CPT-3075F Most recent systolic blood pressure 130-139 mm Hg CPT-3078F Most recent diastoli c blood pressure <80 mm Hg CPT-3074F Most recent systolic blood pressure <130 mm Hg CPT-3079F Most recent diastoli c blood pressure 80-89 mm Hg CPT-3077F Most recent systolic blood pressure >=140 mm Hg SCT-212590199084790 Medication Reconciliation SCT-390171275663733 Medication Reconciliation CPT-3075F Most recent systolic blood pressure 130-139 mm Hg SCT-737746798480941 Medication Reconciliation CPT-35878 Fluzone Quadrivalent Preservative Free prefilled syringe (36 mos +) CPT-92186 IMADM >18YR IM ROUTE 1ST VAC/TOXOID 06/12 CPT-3075F Most recent systolic blood pressure 130-139 mm Hg CPT-3079F Most recent diastoli c blood pressure 80-89 mm Hg CPT-3074F Most recent systolic blood pressure <130 mm Hg CPT-3074F Most recent systolic blood pressure <130 mm Hg SCT-863117127573165 Medication Reconciliation SCT-779725152050653 Medication Reconciliation CPT-3074F Most recent systolic blood pressure <130 mm Hg CPT-3079F Most recent diastoli c blood pressure 80-89 mm Hg CPT-3074F Most recent systolic blood pressure <130 mm Hg CPT-3079F Most recent diastoli c blood pressure 80-89 mm Hg SCT-360134978862372 Medication Reconciliation CPT-3075F Most recent systolic blood pressure 130-139 mm Hg CPT-3079F Most recent diastoli c blood pressure 80-89 mm Hg SCT-897497554083895 Medication Reconciliation [facility] 6399 T1 CBC with diff [facility] 46787 T1 CMP [facility] 57995 T1 Lipid Panel [facility] 49968 T2 Vitamin D 25 Hydroxy 2017 CPT-3074F Most recent systolic blood pressure <130 mm Hg CPT-3078F Most recent diastoli c blood pressure <80 mm Hg SCT-701118747635635 Medication Reconciliation SCT-754956053303888 Medication Reconciliation CPT-3074F Most recent systolic blood pressure <130 mm Hg CPT-3078F Most recent diastoli c blood pressure <80 mm Hg CPT-3074F Most recent systolic blood pressure <130 mm Hg CPT-3079F Most recent diastoli c blood pressure 80-89 mm Hg SCT-624080085275405 Medication Reconciliation SCT-011896740727757 Medication Reconciliation CPT-3074F Most recent systolic blood pressure <130 mm Hg CPT-3079F Most recent diastoli c blood pressure 80-89 mm Hg SCT-915293700999537 Medication Reconciliation SCT-138863736948894 Medication Reconciliation SCT-761311802290837 Medication Reconciliation SCT-311629287460834 SNOMED-CT: 135440649 658105 Current Medications Documented CPT-79294 Fluzone Quadrivalent Preservative Free Intramuscular Suspension 0.5 ML CPT-19724 IMADM >18YR IM ROUTE 1ST VAC/TOXOID 05/25 86081 [facility] Test # BMP 9 99963 [facility] Test # Hepatitic Function Panel 73306 [facility] # Lipid Panel 9 SCT-029890464 Giving encouragement to exercise SCT-550440628 Lifestyle education regarding diet 03/25 SCT-780361742742740 Medication Reconciliation SCT-650939179751753 Medication Reconciliation SCT-667556654 SNOMED-CT: 780671775 Smoking Cessation Counseling SCT-444421665556268 SNOMED-CT: 820365247 820870 Current Medications Documented X-Ray Foot X-Ray Foot 905 [facility] Test # Uric Acid SCT-491500104443510 Medication Reconciliation SCT-898743041645426 Medication Reconciliation SCT-043856746841392 SNOMED-CT: 091045119 975690 Current Medications Documented 44703 [facility] # Urine Drug Screen w/o Confirmation SCT-328923106433992 Medication Reconciliation SCT-201378423 SNOMED-CT: 372874224 Smoking Cessation Counseling SCT-328558211376553 SNOMED-CT: 918677155 478996 Current Medications Documented 24241 [facility] Test # Urine Drug Screen w/o Confirmation CPT-60390 Psych Dx Eval WITH E&M -MD/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 2014 SCT-401914889567737 SNOMED-CT: 295018029 635478 Current Medications Documented 927 [facility] Test # B12 466 [facility] # Folic Acid 713 [facility] # Phenytoin (Dilantin) 201 10/04/05 Other [facility] Other 6399 [facility] Test # CBC with diff 6 86776 [facility] # BMP 6 37927 [facility] # Hepatitic Function Panel 496 [facility] # HGBA1c 59632 [facility] # Lipid Panel 6 45175 [facility] # TSH reflex to free T4 SEP NEURO [facility] Neurology Referral S [facility] Neu[facility] [place] [facility] [place] [place] [facility] [facility] Gastroenterology Re ferral [place] [facility] ct abd pel w edg CT Abdomen and Pelvis w contrast 2013 ECHO ECHO 6399 [facility] Test # CBC with diff 7 30438 [facility] # BMP 7 11986 [facility] # Hepatitic Function Panel 76143 [facility] # Acute Hepatits Panel 2 96621 [facility] # HIV Antibody -consent required 2013 8847 [facility] Test # Protime INR 70416 [facility] Test # TSH reflex to free [...]
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
[2025-02-09] MEDS: HYDROCODONE/APAP 5/325 MG TABLET 1 TAB PO (14:41)
[2025-02-09] MEDS: METHOCARBAMOL 500MG TABLET 500 MG PO (14:41)
--- NOTE | 2025-02-09 15:01 | PC.NURSE ---
Radha from [place] [facility] called to check on the pt. I updated her on the plan of care.
--- NOTE | 2025-02-09 16:31 | PC.NURSE ---
I called dietary to order the pt a regular dinner tray.
--- NOTE | 2025-02-09 16:35 | PC.NURSE ---
I rounded on the pt. I took him a pepsi and a pillow for comfort. no new complaints. no needs voiced. call peterson in reach.
--- NOTE | 2025-02-09 17:16 | XR_ITS ---
PROCEDURE INFORMATION: Exam: XR Right Foot; Alignment Exam date and time: 02/09/2025 5:21 PM Age: 39 years old Clinical indication: Other: Fracture TECHNIQUE: Imaging protocol: Radiologic exam of the right foot. Views: 1 or 2 views. COMPARISON: CR XR FOOT RT 2V 02/09/2025 2:52 PM FINDINGS: Bones/joints: Comminuted, displaced oblique fracture of the 5th metatarsal distal metadiaphysis, with overriding fragments. Soft tissues: Mild lateral forefoot soft tissue swelling. Otherwise unremarkable. IMPRESSION: Comminuted, displaced oblique fracture of the 5th metatarsal distal metadiaphysis, with overriding fragments.
--- NOTE | 2025-02-09 17:50 | PC.NURSE ---
I notified Dax CUNNINGHAM that the pt would like a nicotine patch. She is going to place an order.
[2025-02-09 18:01] VITALS: BP 146/94; PULSE 73; O2SAT 97
[2025-02-09 18:30] VITALS: BP 147/96; PULSE 70; O2SAT 96
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
[2025-02-09] MEDS: NICOTINE 14MG/24HRS PATCH 14 MG TD (19:04)
[2025-02-09 19:13] VITALS: BP 120/72; PULSE 103; RESP 18; O2SAT 98
[2025-02-09 19:14] VITALS: BP 147/96; PULSE 67; RESP 18; TEMP 37.1; O2SAT 97
--- NOTE | 2025-02-09 19:14 | PC.NURSE ---
Resumed care from JACQUELYN Lan
== END 2025-02-09 19:15 | disposition home or self-care (01) ==
PROVIDERS: Emergency Provider Student in an Organized Health Care Education/Training Program
DX: R07.2 Precordial pain (principal); S02.2XXA Fracture of nasal bones, initial encounter for closed fracture; S92.351A Displaced fracture of fifth metatarsal bone, right foot, initial encounter for closed fracture; S00.12XA Contusion of left eyelid and periocular area, initial encounter; Y04.0XXA Assault by unarmed brawl or fight, initial encounter
CPT/HCPCS: 64450; 70450; 70486; 71045; 72125; 73560; 73620; 76942; 99285; J2003

== ENCOUNTER 2025-03-05 09:18 | Outpatient (CLI) | payer MEDICAID, SELFPAY ==
--- NOTE | 2025-03-05 09:25 | XR_ITS ---
FINAL REPORT CLINICAL HISTORY: evaluate 5th metatarsal fracture COMPARISON: 02/09/2025 FINDINGS: RIGHT FOOT Three views were obtained. There has been no interval change in the mildly displaced fracture of the distal fifth metatarsal. No significant callus formation is identified. IMPRESSION: No change in the fifth metatarsal fracture. Reviewed, Interpreted and Dictated by Veronica Venegas MD Transcribed by Alexandra Carpenter Authenticated and [facility]
--- OUTSIDE RECORDS SUMMARY | 2025-03-05 09:28 | XMS_ITS | Clinical Summary ---
Author Organization [facility] Address [address] [place] [id number] Phone Care Team Providers Care [employer] Control Specialist Name Role Phone Lucrecia Lozano Primary Care Physician [phone] Conditions or Problems Problem Name Problem Code Onset Date Status Entry Date Provider Comment Standard Description Annotate Body mass index (BMI) 20.0-20.9; adult Z68.20 (ICD-10-CM ) 07/12 Active 07/13 [facility] Body mass index [BMI] 20.0-20.9, adult Body mass index (BMI) 19 or less; adult Z68.1 (ICD-10-CM ) 01/11 Correction 01/20 [facility] Body mass index [BMI] 19.9 or less, adult Counseling for nutrition Z71.3 (ICD-10-CM ) 01/11 Inactive 01/20 [facility] Dietary counseling and surveillance Body mass index (BMI) 19 or less; adult Z68.1 (ICD-10-CM ) 01/11 Removed 01/20 [facility] Body mass index [BMI] 19.9 or less, adult Counseling for nutrition Z71.3 (ICD-10-CM ) 01/11 Inactive 01/20 [facility] Dietary counseling and surveillance Body mass index (BMI) 19 or less; adult Z68.1 (ICD-10-CM ) Correction [facility] Body mass index [BMI] 19.9 or less, adult Counseling for nutrition Z71.3 (ICD-10-CM ) 12/12 Inactive 12/[address] [facility] [employer] Dietary counseling and surveillance Unspecified superficial injury of right ring finger, sequela 598404032 (SNOMED CT) 11/28 Active 11/[address] [facility] [employer] Superficial injury of finger Counseling for nutrition Z71.3 (ICD-10-CM ) 11/28 Inactive 11/[address] [facility] [employer] Dietary counseling and surveillance Counseling for nutrition Z71.3 (ICD-10-CM ) Inactive Lucrecia Oxbow PMHNP Dietary counseling and surveillance Body mass index (BMI) 19 or less; adult Z68.1 (ICD-10-CM ) Removed Lucrecia Selwyn PMHNP Body mass index [BMI] 19.9 or less, adult Body mass index (BMI) 21.0-21.9; adult Z68.21 (ICD-10-CM ) 10/25 Correction 10/26 Lucrecia Oxbow PMHNP Body mass index [BMI] 21.0-21.9, adult Decreased body mass index 3595110 (SNOMED CT) 02/15 Correction 02/15 Lucrecia Oxbow PMHNP Decreased body mass index Weight loss 96926895 (SNOMED CT) 02/15 Active 02/15 Olga Reena DO Weight loss Decreased body mass index 9752157 (SNOMED CT) 02/15 Removed 02/15 Olga Reena DO Decreased body mass index Counseling for nutrition Z71.3 (ICD-10-CM ) 01/20 Inactive 01/20 [place] Oxbow PMHNP Dietary counseling and surveillance Body mass index (BMI) 21.0-21.9; adult Z68.21 (ICD-10-CM ) 10/25 Removed 10/26 [place] Oxbow PMHNP Body mass index [BMI] 21.0-21.9, adult Body mass index (BMI) 21.0-21.9; adult Z68.21 (ICD-10-CM ) 10/18 Correction 10/18 Lucrecia Samano PMHNP Body mass index [BMI] 21.0-21.9, adult Substance Abuse 65950177 (SNOMED CT) 10/26 Active 10/26 [facility] Depression 45256728 (SNOMED CT) 10/26 Active 10/26 Lucreciahaydee Samano HN Depressive disorder Anxiety Disorder 751759060 (SNOMED CT) 10/26 Active 10/26 Lucrecia Samano [facility] Anxiety disorder Body mass index (BMI) [...] mass index [BMI] 22.0-22.9, adult Weight loss 11375305 (SNOMED CT) 10/18 Active 10/18 Olga Reena DO Weight loss Counseling for nutrition Z71.3 (ICD-10-CM ) 07/26 Inactive 07/26 Shalonda Parada [facility] Dietary counseling and surveillance Body mass index (BMI) 22.0-22.9; adult Z68.22 (ICD-10-CM ) 07/26 Removed 07/26 Shalodna Ankit [place] PAINTER Body mass index [BMI] 22.0-22.9, adult Body mass index (BMI) 23.0-23.9; adult Z68.23 (ICD-10-CM ) Correction Shalonda Ankit [place] PAINTER Body mass index [BMI] 23.0-23.9, adult Body mass index (BMI) 23.0-23.9; adult Z68.23 (ICD-10-CM ) Removed Olga Reena DO Body mass index [BMI] 23.0-23.9, adult Body mass index (BMI) 21.0-21.9; adult Z68.21 (ICD-10-CM ) Correction Olga Reena DO Body mass index [BMI] 21.0-21.9, adult Counseling for nutrition Z71.3 (ICD-10-CM ) Inactive Shalonda Ankit [place] PAINTER Dietary counseling and surveillance Body mass index (BMI) 21.0-21.9; adult Z68.21 (ICD-10-CM ) Removed Shalonda Ankit [place] PAINTER Body mass index [BMI] 21.0-21.9, adult Body mass index (BMI) 23.0-23.9; adult Z68.23 (ICD-10-CM ) 01/18 Correction 01/18 Shaolnda G Karma PAINTER Body mass index [BMI] 23.0-23.9, adult Body mass index (BMI) 23.0-23.9; adult Z68.23 (ICD-10-CM ) 01/18 Removed 01/18 Shalonda G Karma PAINTER Body mass index [BMI] 23.0-23.9, adult Counseling [...] DO Dietary counseling and surveillance Tobacco User 152332103 (SNOMED CT) 10/20 Active 10/20 Olga Reena [...] nutrition Z71.3 (ICD-10-CM ) 03/06 Inactive 03/06 Shalodna G [place] PAINTER Dietary counseling and surveillance Body mass index (BMI) 21.0-21.9; adult Z68.21 (ICD-10-CM ) 03/06 Removed 03/06 Shalonda G [place] PAINTER Body mass index [BMI] 21.0-21.9, adult Body mass index (BMI) 22.0-22.9; adult Z68.22 (ICD-10-CM ) 11/28 Correction 11/28 Shalonda G Karma PAINTER Body mass index [BMI] 22.0-22.9, adult Counseling for nutrition Z71.3 (ICD-10-CM ) 11/28 Inactive 11/28 Shalonda G [place] PAINTER Dietary counseling and surveillance Body mass index (BMI) 22.0-22.9; adult Z68.22 (ICD-10-CM ) 11/28 Removed 11/28 Shalonda G [place] PAINTER Body mass index [BMI] 22.0-22.9, adult Body mass index (BMI) 22.0-22.9; adult Z68.22 (ICD-10-CM ) 10/21 Correction 10/21 Shalonda G Karma PAINTER Body mass index [BMI] 22.0-22.9, adult Body mass index (BMI) 22.0-22.9; adult Z68.22 (ICD-10-CM ) 10/21 Removed 10/21 Olga Reena DO Body mass index [BMI] 22.0-22.9, adult Marijuana abuse 46308397 (SNOMED CT) 10/21 Active 10/21 Olga Reena DO Harmful pattern of use of Cannabis Alcohol use 619543 (SNOMED CT) 10/21 Active 10/21 Olga Reena [...] index [BMI] 23.0-23.9, adult Influenza vaccination given 771220159 (SNOMED CT) Active Nabeel Donovan [employer] Medication given Body mass index (BMI) 23.0-23.9; adult Z68.23 (ICD-10-CM ) Removed Shaila Lopez MA Body mass index [BMI] 23.0-23.9, adult Body mass index (BMI) 21.0-21.9; adult Z68.21 (ICD-10-CM ) 02/07 Correction 02/07 Shaila Martinezra [facility] Body mass index [BMI] 21.0-21.9, adult Counseling for nutrition Z71.3 (ICD-10-CM ) 02/07 Inactive 02/07 Shalonda Ankit Parada PAINTER Dietary counseling and surveillance Body mass index (BMI) 21.0-21.9; adult Z68.21 (ICD-10-CM ) 02/07 Removed 02/07 Shalonda G Karma PAINTER Body mass index [BMI] 21.0-21.9, adult Body mass index (BMI) 21.0-21.9; adult Z68.21 (ICD-10-CM ) 10/24 Correction 10/24 Shalonda Ankit Parada PAINTER Body mass index [BMI] 21.0-21.9, adult Body [...] (ICD-10-CM ) 08/02 Removed 08/02 Shalonda G Karma PAINTER Body mass index [BMI] 24.0-24.9, adult Counseling for nutrition Z71.3 (ICD-10-CM ) 08/02 Inactive 08/02 Shalonda G Karma PAINTER Dietary counseling and surveillance Body mass index (BMI) 25.0-25.9; adult Z68.25 (ICD-10-CM ) Correction Shalonda G [place] PAINTER Body mass index [BMI] 25.0-25.9, adult Flu vaccine 56080138 (SNOMED CT) Inactive Esteban Coombs RN Administration [...] (ICD-10-CM ) 03/02 Inactive 03/02 Shalonda G [place] PAINTER Dietary counseling and surveillance Body mass index (BMI) 25.0-25.9; adult Z68.25 (ICD-10-CM ) 03/02 Removed 03/02 Shalonda G Karma PAINTER Body mass index [BMI] 25.0-25.9, adult Body mass index (BMI) 25.0-25.9; adult Z68.25 (ICD-10-CM ) 11/03 Correction 11/03 Shalonda G Karma PAINTER Body mass index [BMI] 25.0-25.9, adult Counseling for nutrition Z71.3 (ICD-10-CM ) 11/03 Inactive 11/03 Shalonda G Karma PAINTER Dietary counseling and surveillance Body mass index (BMI) 25.0-25.9; adult Z68.25 (ICD-10-CM ) 11/03 Removed 11/03 Shalonda G Karma PAINTER Body mass index [BMI] 25.0-25.9, adult Body mass index (BMI) 25.0-25.9; adult Z68.25 (ICD-10-CM ) 10/09 Correction 10/09 Shalonda G Karma PAINTER Body mass index [BMI] 25.0-25.9, adult Depression 57227957 (SNOMED CT) 11/03 Active 11/03 Shalonda G [place] PAINTER Depressive disorder Body mass index (BMI) 25.0-25.9; adult Z68.25 (ICD-10-CM ) 10/09 Removed 10/09 Ye Pringle DO Body mass index [BMI] 25.0-25.9, adult Body mass index (BMI) 28.0-28.9; adult Z68.28 (ICD-10-CM ) 08/14 Correction 08/14 Ye Pringle DO Body mass index [BMI] 28.0-28.9, adult Hypertensio n 00258434 (SNOMED CT) 10/09 Active 10/09 Ye Pringle DO Hypertensive disorder Counseling for nutrition Z71.3 (ICD-10-CM ) 08/14 Inactive 08/14 Shalonda G [place] PAINTER Dietary counseling and surveillance Body mass index (BMI) 28.0-28.9; adult Z68.28 (ICD-10-CM ) 08/14 Removed 08/14 Shalonda G Karma PAINTER Body mass index [BMI] 28.0-28.9, adult Body mass index (BMI) 26.0-26.9; adult Z68.26 (ICD-10-CM ) 08/13 Correction 08/13 Shalonda G [place] PAINTER Body mass index [BMI] 26.0-26.9, adult Counseling for nutrition Z71.3 (ICD-10-CM ) 07/10 Inactive 07/10 Kimberly Jean APRN Dietary counseling and surveillance Counseling for nutrition Z71.3 (ICD-10-CM ) 08/13 Inactive 08/13 Shalonda G [place] PAINTER Dietary counseling and surveillance Body mass index (BMI) 26.0-26.9; adult Z68.26 (ICD-10-CM ) 08/13 Removed 08/13 Shalonda G Karma PAINTER Body mass index [BMI] 26.0-26.9, adult Body mass index (BMI) 23.0-23.9; adult Z68.23 (ICD-10-CM ) 03/20 Correction 03/20 Shalonda G Karma PAINTER Body mass index [BMI] 23.0-23.9, adult Counseling for nutrition Z71.3 (ICD-10-CM ) 03/20 Inactive 03/20 Shalonda G Karma PAINTER Dietary counseling and surveillance Body mass index (BMI) 23.0-23.9; adult Z68.23 (ICD-10-CM ) 03/20 Removed 03/20 Shalonda G Karma PAINTER Body mass index [BMI] 23.0-23.9, adult Body mass index (BMI) 24.0-24.9; adult Z68.24 (ICD-10-CM ) 12/19 Correction 12/19 Shalonda G [place] PAINTER Body mass index [BMI] 24.0-24.9, adult Counseling for nutrition Z71.3 (ICD-10-CM ) 12/19 Inactive 12/19 Shalonda G Karma PAINTER Dietary counseling and surveillance Body mass index (BMI) 24.0-24.9; adult Z68.24 (ICD-10-CM ) 12/19 Removed 12/19 Shalonda G Karma PAINTER Body mass index [BMI] 24.0-24.9, adult Body mass index (BMI) 24.0-24.9; adult Z68.24 (ICD-10-CM ) 12/12 Correction 12/12 Shalonda Ankit Karma NAVARROP Body mass index [BMI] 24.0-24.9, adult Vitamin D deficiency 17028633 (SNOMED CT) 12/12 Active 12/12 Cain Patel [...] ) 08/16 Removed 08/16 Shalonda Ankit [place] PAINTER Body mass index [BMI] 21.0-21.9, adult Body mass index (BMI) 20.0-20.9; adult Z68.20 (ICD-10-CM ) 08/16 Correction 08/16 Shalonda Ankit [place] PAINTER Body mass index [BMI] 20.0-20.9, adult Body mass index (BMI) 20.0-20.9; adult Z68.20 (ICD-10-CM ) 08/16 Removed 08/16 Ladonna Kwok MD Body mass index [BMI] 20.0-20.9, adult Physical exam 8747322 (SNOMED CT) 08/16 Inactive 08/16 Ladonna Kwok MD Physical examination Counseling for nutrition Z71.3 (ICD-10-CM ) 08/16 Inactive 08/16 Ladonna Kwok MD Dietary counseling and surveillance Body mass index (BMI) 20.0-20.9; adult Z68.20 (ICD-10-CM ) 07/02 Correction 07/02 Ladonna Kwok MD Body mass index [BMI] 20.0-20.9, adult Counseling for nutrition Z71.3 (ICD-10-CM ) 07/02 Inactive 07/02 Shalonda Randolphon PAINTER Dietary counseling and surveillance Body mass index (BMI) 20.0-20.9; adult Z68.20 (ICD-10-CM ) 07/02 Removed 07/02 Shalonda G Karma PAINTER Body mass index [BMI] 20.0-20.9, adult Body mass index (BMI) 21.0-21.9; adult Z68.21 (ICD-10-CM ) 12/24 Correction 12/24 Shalonda G [place] PAINTER Body mass index [BMI] 21.0-21.9, adult Body mass index (BMI) 21.0-21.9; adult Z68.21 (ICD-10-CM ) 12/24 Removed 12/24 Alva Dee APRN Body mass index [BMI] 21.0-21.9, adult Body mass index (BMI) 21.0-21.9; adult Z68.21 (ICD-10-CM ) 12/06 Correction 12/06 Alva Dee APRN Body mass index [BMI] 21.0-21.9, adult Counseling for nutrition Z71.3 (ICD-10-CM ) 12/06 Inactive 12/06 Shalonda G Karma PAINTER Dietary counseling and surveillance Body mass index (BMI) 21.0-21.9; adult Z68.21 (ICD-10-CM ) 12/06 Removed 12/06 Shalonda MARTINEZ Body mass index [BMI] 21.0-21.9, adult Acute gouty arthropathy - ? OF 253211504 (SNOMED CT) 12/10 Resolved 12/10 Madina Munoz APRN Gouty arthropathy Acute gouty arthropathy - ? OF 521973528 (SNOMED CT) 12/10 Removed 12/10 Madina Munoz APRN Gouty arthropathy Seizure disorder 358850013 (SNOMED CT) Active Madina Munoz APRN Seizure disorder Myocardial infarction, anterior wall - HX OF 42823462 (SNOMED CT) Active Madina Munoz APRN Myocardial infarction Hx of CVA - R HEMIPARESIS 203988438 (SNOMED CT) Active Madina Munoz APRN History of cerebrovascular accident Other and unspecified mitral valve diseases 41144685 (SNOMED CT) Active Madina Munoz APRN Mitral valve disorder ELEVATED BP READING WITHOUT DX HYPERTENSIO N R03.0 (ICD-10-CM ) 07/19 Resolved 07/19 Madina Munoz APRN Elevated blood-pressure reading, without diagnosis of hypertension KNEE PAIN, RIGHT 35373640 (SNOMED CT) 08/03 Resolved 08/03 Madina Munoz APRN Knee pain ABDOMINAL PAIN 18489211 (SNOMED CT) 08/23 Resolved 08/23 Madina Munoz APRN Abdominal pain DIARRHEA 44370224 (SNOMED CT) 08/23 Resolved 08/23 Madina Munoz APRN Diarrhea Cardiomyopa thy 60795413 (SNOMED CT) 08/23 Active 08/23 Madina Munoz APRN Cardiomyopathy Drug abuse, hx of 380141861 (SNOMED CT) 08/23 Active 08/23 Madina Munoz APRN History of drug abuse ENCOUNTERS UNSPECIFIED ADMINISTRAT HAIDER PURPOSE Z02.89 (ICD-10-CM ) 02/06 Resolved 02/06 Madina Munoz APRN Encounter for other administrative examinations Tobacco abuse 02997502 (SNOMED CT) Active Madina Munoz APRN Tobacco dependence syndrome Anxiety 487354585 (SNOMED CT) Active Merlin Hernandez MD Anxiety disorder ENCOUNTERS UNSPECIFIED ADMINISTRAT HAIDER PURPOSE Z02.89 (ICD-10-CM ) 02/06 Removed 02/06 Merlin Hernandez MD Encounter for other administrative examinations 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/06 Active 02/06 Merlin Hernandez MD Anoxic encephalopathy DRUG ABUSE 50863013 (SNOMED CT) 08/23 Inactive 08/23 Merlin Hernandez MD Drug abuse HEART MURMUR, SYSTOLIC 37872405 (SNOMED CT) 08/23 Inactive 08/23 Merlin Hernandez MD Systolic murmur DIARRHEA 56639145 (SNOMED CT) 08/23 Removed 08/23 Merlin Hernandez MD Diarrhea ABDOMINAL PAIN 49026453 (SNOMED CT) 08/23 Removed 08/23 Merlin Hernandez MD Abdominal pain KNEE PAIN, RIGHT 31683433 (SNOMED CT) 08/03 Removed 08/03 Madina Munoz APRN Knee pain CERVICAL MUSCLE STRAIN 774862404 (SNOMED CT) 07/19 Resolved 07/19 Madina Munoz APRN Strain of neck muscle CERVICAL MUSCLE STRAIN 886843204 (SNOMED CT) 07/19 Removed 07/19 Madina Munoz [...] for 10 days for DENTAL PAIN. ibuprofen 46795434041 Gisell Diana on DMD RA VITAMIN C 250 MG TABS Take 1 tablet by mouth single dose ascorbic acid (vitamin c) 18497677069 [facility] [employer] LISINOPRIL 10 MG TABS Take 1 tablet by mouth once a day TAKE ONE TABLET BY MOUTH DAILY lisinopril 26908859132 [facility] [employer] OMEPRAZOLE 20 MG CPDR Take 1 capsule by mouth once a day 11/[address] [facility] [employer] CARVEDILOL 25 MG TABS Take 1 tablet by mouth twice a day TAKE ONE TABLET BY MOUTH TWICE A DAY carvedilol 59783531546 [facility] [employer] ASPIRIN LOW DOSE 81 MG TBEC Take 1 tablet by mouth once a day aspirin 78939874977 [facility] [employer] FLUOXETINE HCL 20 MG CAPS Take 1 capsule by mouth once a day 08/21 fluoxetine 16401064368 Lucrecia Samano PMHNP MIRTAZAPINE 45 MG TABS Take 1 tablet by mouth at bedtime mirtazapine 67805149643 Lucrecia Samano PMHNP FLUOXETINE HCL 20 MG CAPS Take 1 capsule by mouth once a day 07/19 fluoxetine 07263809313 Lucreciabandar Samano PMHNP MIRTAZAPINE 45 MG TABS TAKE ONE TABLET BY MOUTH AT BEDTIME mirtazapine 40622786183 Lucrecia Samano PMHNP OMEPRAZOLE 20 MG CPDR Take 1 capsule by mouth once a day omeprazole 07046642072 Olga Reena DO LISINOPRIL 2.5 MG TABS TAKE ONE TABLET BY MOUTH DAILY lisinopril 57408071039 Olga Reena DO MIRTAZAPINE 45 MG TABS Take 1 tablet by mouth at bedtime 01/14 mirtazapine 38620422152 Nona Hayes [employer]IC BCADM MIRTAZAPINE 45 MG TABS TAKE ONE TABLET BY MOUTH AT BEDTIME mirtazapine 44500513517 Lucreciabandar Samano PMHNP MIRTAZAPINE 45 MG TABS Take 1 tablet by mouth at bedtime mirtazapine 64977749873 Lucrecia Samano PMHNP FLUOXETINE HCL 20 MG CAPS Take 1 capsule by mouth once a day fluoxetine 52934221667 Lucrecia Samano PMHNP LISINOPRIL 2.5 MG TABS TAKE ONE TABLET BY MOUTH DAILY lisinopril 93806197635 Olga Reena DO FLUOXETINE HCL 20 MG CAPS Take 1 capsule by mouth once a day 01/21 fluoxetine 00531954991 Shalonda Parada PAINTER LISINOPRIL 2.5 MG TABS Take 1 tablet by mouth once a day 08/24 lisinopril 40085118390 Diana Ny [employer] LISINOPRIL 2.5 MG TABS TAKE ONE TABLET BY MOUTH DAILY lisinopril 20902154719 Olga Reena DO LISINOPRIL 2.5 MG TABS Take 1 tablet by mouth once a day lisinopril 53935649151 Olga Reena DO LISINOPRIL 2.5 MG TABS Take 1 tablet by mouth once a day lisinopril 73762895481 Clara Ishan [place] FLUOXETINE HCL 20 MG CAPS Take 1 capsule by mouth once a day 10/09 fluoxetine 34727166678 Shalonda Parada PAINTER FLUOXETINE HCL 20 MG CAPS Take 1 capsule by mouth once a day 07/17 fluoxetine 14763449651 Shalonda Parada PAINTER MIRTAZAPINE 45 MG TABS Take 1 tablet by mouth at bedtime mirtazapine 27654399758 Shalonda Parada PAINTER LISINOPRIL 2.5 MG TABS Take 1 tablet by mouth once a day lisinopril 19336554811 Alva Benjamin APRN MIRTAZAPINE 45 MG TABS Take 1 tablet by mouth every night 01/15 mirtazapine 19462026369 Nirav Carvalho MD BUSPIRONE HCL 5 MG TABS Take 1 tablet by mouth twice a day for anxiety 12/16 buspirone 18966183384 Nirav Carvalho MD MIRTAZAPINE 45 MG TABS 11/18 mirtazapine 37217597262 Emily Joel MA MIRTAZAPINE 45 MG TABS Take 1 tablet by mouth every night 12/18 mirtazapine 87873284337 Nirav Carvalho MD BUSPIRONE HCL 5 MG TABS Take 1 tablet by mouth twice a day for anxiety 12/18 buspirone 27218781679 Nirav Carvalho MD MIRTAZAPINE 45 MG TABS mirtazapine 50530651264 Emily Joel MA FLUOXETINE HCL 20 MG CAPS Take 1 capsule by mouth twice a day fluoxetine 51389443927 Olga Reena DO CARVEDILOL 25 MG TABS Take 1 tablet by mouth twice a day TAKE ONE TABLET BY MOUTH TWICE A DAY carvedilol 73728802134 Olga Reena DO ASPIRIN EC 81 MG TBEC Take 1 tablet by mouth once a day aspirin 53373647086 Olga Reena DO calcium citrate-vitamin D3 250 mg-5 mcg (200 unit) tablet Take 1 tablet by mouth once a day 10/20 calcium citrate-vitamin d3 52597723340 Radha Carr MA FLUOXETINE HCL 20 MG CAPS Take 1 capsule by mouth twice a day 10/22 fluoxetine 96740317819 Michael Bang APRN MIRTAZAPINE 45 MG TABS Take 1 tablet by mouth every night 10/22 mirtazapine 23647747710 Michael Bang APRN CARVEDILOL 25 MG TABS TAKE ONE TABLET BY MOUTH TWICE A DAY 08/25 carvedilol 46306203846 Jennifer Aguero [employer] CARVEDILOL 25 MG TABS Take 1 tablet by mouth twice a day TAKE ONE TABLET BY MOUTH TWICE A DAY carvedilol 05720925141 Salome Moya [employer] CARVEDILOL 25 MG TABS TAKE ONE TABLET BY MOUTH TWICE A DAY carvedilol 71706409875 Olga Reena DO LISINOPRIL 2.5 MG TABS Take 1 tablet by mouth once a day lisinopril 45150064260 Olga Reena DO calcium citrate-vitamin D3 250 mg-5 mcg (200 unit) tablet Take 1 tablet by mouth once a day calcium citrate-vitamin d3 87828485841 Radha Carr MA VITAMIN C 250 MG TABS Take 1 tablet by mouth single dose ascorbic acid (vitamin c) 23200758819 Radha Carr MA CARVEDILOL 25 MG TABS TAKE ONE TABLET BY MOUTH TWICE A DAY 07/28 carvedilol 34467658277 Jennifer Aguero APRN LISINOPRIL 2.5 MG TABS Take 1 tablet by mouth once a day lisinopril 42780657752 Jennifer Laci BLANKENSHIPN MIRTAZAPINE 45 MG TABS Take 1 tablet by mouth every night mirtazapine 80642212708 Shalonda MARTINEZ CARVEDILOL 25 MG TABS Take 1 tablet by mouth twice a day 11/18 carvedilol 45757057311 Jennifer Aguero APRN VITAMIN D 50 MCG (2000 UT) TABS Take 1 tablet by mouth once a day cholecalciferol (vitamin d3) 63682628367 Jennifer Aguero APRN FLUOXETINE HCL 20 MG CAPS Take 1 capsule by mouth twice a day fluoxetine 66501618461 Shalonda MARTINEZ ASPIRIN EC 81 MG TBEC Take 1 tablet by mouth once a day aspirin 14128988680 Jennifer Laci BLANKENSHIPN KEPPRA 750 MG TABS Take 1 tablet by mouth twice a day levetiracetam 93127223413 Jennifer Gregoriojay [employer] CARVEDILOL 25 MG TABS TAKE ONE TABLET BY MOUTH TWICE A DAY carvedilol 19043434110 Olga Reena DO MIRTAZAPINE 30 MG TABS Take 1 at bedtime MIRTAZAPINE 67373823289 Shaila Lopez MA MIRTAZAPINE 45 MG TABS Take 1 at bedtime. Please disregard rx for 30 mg. MIRTAZAPINE 55957163851 Shalonda MARTINEZ FLUOXETINE HCL 20 MG CAPS TAKE ONE CAPSULE BY MOUTH TWICE A DAY FLUOXETINE HCL 28130513413 Shalonda MARTINEZ MEGESTROL ACETATE 20 MG TABS take one tablet by mouth twice a day 0 MEGESTROL ACETATE 41768366446 Emma Nieto RMA PROZAC 20 MG CAPS Take 1 twice a day FLUOXETINE HCL 28636595489 Shalonda MARTINEZ LISINOPRIL 2.5 MG TABS TAKE ONE TABLET BY MOUTH DAILY LISINOPRIL 71928495178 Olga Reena DO KEPPRA 750 MG TABS TAKE ONE TABLET BY MOUTH TWICE A DAY LEVETIRACETAM 68070388358 Kimberly Jean APRN PROZAC 20 MG CAPS TAKE 1 CAPSULE BY MOUTH EVERY MORNINGfor 7 days then increase to 2 daily. FLUOXETINE HCL 12263942367 Shalonda MARTINEZ PAROXETINE HCL 40 MG TABS TAKE 1 TABLET BY MOUTH ONCE A DAY 08/13 PAROXETINE HCL 73481335613 Radha Carr MA MIRTAZAPINE 30 MG TABS Take 1 at bedtime MIRTAZAPINE 47256448832 Shalonda MARTINEZ VITAMIN D 50 MCG (1999 UT) TABS TAKE 1 TABLET BY MOUTH ONCE A DAY CHOLECALCIFEROL 59939818925 Kimberly Jean APRN TIZANIDINE HCL 4 MG CAPS Take 1 tablet by mouth daily 12/12 TIZANIDINE HCL 85838054632 Cain Patel MD BACLOFEN 10 MG TABS TAKE 1 TABLET 2 TIMES DAILY NEEDED FOR MUSCLES 12/12 BACLOFEN 97810070921 Cain Patel MD MIRTAZAPINE 45 MG TABLET TAKE ONE TABLET BY MOUTH EVERY NIGHT AT BEDTIME MIRTAZAPINE 10693518640 Shalonda MARTINEZ KEPPRA 750 MG TABS TAKE ONE TABLET BY MOUTH TWICE A DAY LEVETIRACETAM 73939571399 Kimberly Bishop [place] LISINOPRIL 2.5 MG TABS TAKE ONE TABLET BY MOUTH DAILY LISINOPRIL 60818023170 Kimberly Hurtadobing [place] CARVEDILOL 25 MG TABS TAKE ONE TABLET BY MOUTH TWICE A DAY CARVEDILOL 44868663914 Nabeel Donovan [place] MEGESTROL ACETATE 20 MG TABS take one tablet by mouth twice a day MEGESTROL ACETATE 12771537911 Shalonda Ankit Karma MARTINEZ TIZANIDINE HCL 4 MG CAPS Take 1 tablet by mouth daily TIZANIDINE HCL 08304711966 Cain Patel MD INDOMETHACIN 25 MG CAPS TAKE 2 TABLETS BY MOUTH EVERY 8 HOURS x 5-7 DAYS NEEDED 07/25 INDOMETHACIN 82501373818 Madina Munoz APRN BACLOFEN 10 MG TABS TAKE 1 TABLET 2 TIMES DAILY NEEDED FOR MUSCLES BACLOFEN 15211202936 Cain Patel MD ASPIR-LOW 81 MG ORAL TABLET DELAYED RELEASE TAKE 1 TABLET BY MOUTH 1 TIME A DAY ASPIRIN 52542953082 Cain Patel MD INDOMETHACIN 25 MG CAPS TAKE 2 TABLETS BY MOUTH EVERY 8 HOURS x 5-7 DAYS NEEDED INDOMETHACIN 12616115352 Madina Munoz APRN CHANTIX CONTINUING MONTH MICHELLE 1 MG ORAL TABLET TAKE 1 TABLET TWICE A DAY 12/01 VARENICLINE TARTRATE 88343130949 Cristela Teresa APRN KLONOPIN 1 MG TABS TAKE 1 TABLET BY MOUTH 2 TIMES A DAY FOR PANIC/ANXIETY 09/08 CLONAZEPAM 68559584250 Cristela Teresa APRN REMERON 45 MG ORAL TABLET TAKE 1 TABLET AT BEDTIME MIRTAZAPINE 37371924232 Shalonda G Karma MARTINEZ KLONOPIN 1 MG TABS TAKE 1 TABLET BY MOUTH 2 TIMES A DAY FOR PANIC/ANXIETY CLONAZEPAM 90299490102 Cristela Teresa APRN PAROXETINE HCL 40 MG TABS TAKE 1 TABLET BY MOUTH ONCE A DAY 07/09 PAROXETINE HCL 57543225707 Cristela Brii [place] HYDROXYZINE HCL 25 MG TABS TAKE 1 TABLET BY MOUTH EVERY 8 HOURS NEEDED FOR ANXIETY 07/09 HYDROXYZINE HCL 41033976208 Cristela Teresa [employer] PAROXETINE HCL 40 MG TABS TAKE 1 TABLET BY MOUTH ONCE A DAY PAROXETINE HCL 16821882053 Shalonda Parada PAINTER CHANTIX STARTING MONTH MICHELLE 0.5 MG X 11 & 1 MG X 42 ORAL TABLET USE DIRECTED 07/18 VARENICLINE TARTRATE [id number] Madina Munoz APRN CHANTIX CONTINUING MONTH MICHELLE 1 MG ORAL TABLET TAKE 1 TABLET TWICE A DAY VARENICLINE TARTRATE [id number] Madina Munoz APRN HYDROXYZINE HCL 25 MG TABS TAKE 1 TABLET BY MOUTH EVERY 8 HOURS NEEDED FOR ANXIETY HYDROXYZINE HCL [id number] Madina Munoz APRN PANTOPRAZOLE SODIUM 40 MG TBEC TAKE 1 BY MOUTH EACH DAY PANTOPRAZOLE SODIUM [id number] Madina Munoz APRN DICLOFENAC SODIUM 75 MG TBEC TAKE 1 TAB BY MOUTH 2 TIMES A DAY NEEDED FOR PAIN DICLOFENAC SODIUM [id number] Madina Munoz APRN CIPROFLOXACIN HCL 500 MG TABS TAKE 1 TABLET BY MOUTH 2 TIMES A DAY x 5 days CIPROFLOXACIN HCL [id number] Madina Munoz APRN KLONOPIN 1 MG TABS TAKE 1 TABLET BY MOUTH 3 TIMES A DAY FOR PANIC/ANXIETY CLONAZEPAM 52611783965 Cristela Teresa APRN CHANTIX STARTING MONTH MICHELLE 0.5 MG X 11 & 1 MG X 42 ORAL TABLET USE DIRECTED 07/18 VARENICLINE TARTRATE [id number] Madina Munoz APRN CHANTIX CONTINUING MONTH MICHELLE 1 MG ORAL TABLET TAKE 1 TABLET TWICE A DAY VARENICLINE TARTRATE 25991141742 Madina Munoz APRN KLONOPIN 1 MG TABS TAKE 1 TABLET BY MOUTH 3 TIMES A DAY FOR PANIC/ANXIETY CLONAZEPAM 88589128189 Cristela Teresa APRN REMERON 30 MG TABS TAKE 1 TABLET BY MOUTH AT BEDTIME MIRTAZAPINE [id number] Cristela Teresa APRN KLONOPIN 1 MG TABS TAKE 1 TABLET BY MOUTH 2 TIMES A DAY FOR PANIC/ANXIETY CLONAZEPAM 19566360638 Cristela Teresa [employer] HYDROXYZINE HCL 25 MG TABS 1 tab by mouth every 8 hours as needed for anxiety. 03/04 HYDROXYZINE HCL 02824921217 Cristela Teresa APRN QUETIAPINE FUMARATE 200 MG TABS ONE PO QHS. 03/04 QUETIAPINE FUMARATE 54226121849 Cristela Teresa APRN KEPPRA 750 MG TABS 1 tab by mouth twice daily LEVETIRACETAM 07622088026 Ye Pringle DO PAROXETINE HCL 40 MG TABS TAKE 1 TABLET BY MOUTH ONCE A DAY PAROXETINE HCL 97359011780 Cristela Teresa APRN PHENYTOIN SODIUM EXTENDED 100 MG CAPS 1 cap by mouth every 8 hours 07/11 PHENYTOIN SODIUM EXTENDED 78248593277 Merlin Hernandez MD ASPIR-LOW 81 MG ORAL TABLET DELAYED RELEASE TAKE 1 TABLET BY MOUTH 1 TIME A DAY ASPIRIN 67161560816 Madina Alexander [employer] DICLOFENAC SODIUM 75 MG TBEC TAKE 1 TAB BY MOUTH 2 TIMES A DAY NEEDED FOR PAIN DICLOFENAC SODIUM 56049320694 Merlin Hernandez MD HYDROXYZINE HCL 25 MG TABS 1 tab by mouth every 8 hours as needed for anxiety. HYDROXYZINE HCL 79330603072 Merlin Hernandez MD FLUOXETINE HCL 40 MG CAPS 1 cap by mouth daily FLUOXETINE HCL 40438956935 Merlin Hernandez MD TRAZODONE HCL 50 MG TABS 1 tab by mouth nightly as needed for insomnia. 0 TRAZODONE HCL 16117203719 Génesis Sahu RN QUETIAPINE FUMARATE 200 MG TABS ONE PO QHS. QUETIAPINE FUMARATE 48503965366 Merlin Hernandez MD TRAZODONE HCL 50 MG TABS 1 tab by mouth nightly as needed for insomnia. TRAZODONE HCL 07173063194 Merlin Hernandez MD SEROQUEL 200 MG TABS TAKE 1 TABLET BY MOUTH EVERY NIGHT AT BEDTIME QUETIAPINE FUMARATE 54953185804 Merlin Hernandez MD PHENYTOIN SODIUM EXTENDED 100 MG CAPS 1 cap by mouth every 8 hours PHENYTOIN SODIUM EXTENDED 84095993634 Merlin Hernandez MD LISINOPRIL 2.5 MG TABS TAKE 1 TABLET BY MOUTH 1 TIME A DAY LISINOPRIL 85267717908 Ye Pringle DO KEPPRA 750 MG TABS 2 tabs by mouth twice daily LEVETIRACETAM 72477139416 Merlin Hernandez MD PROZAC 20 MG CAPS TAKE 1 BY MOUTH EVERY MORNING FLUOXETINE HCL 63631671403 Merlin Hernandez MD CARVEDILOL 25 MG TABS TAKE 1 TABLET BY MOUTH 2 TIMES A DAY CARVEDILOL 48443222149 Ye Pringle DO ASPIR-LOW 81 MG ORAL TABLET DELAYED RELEASE TAKE 1 TABLET BY MOUTH 1 TIME A DAY ASPIRIN 87219209462 Merlin Hernandez MD PANTOPRAZOLE SODIUM 40 MG TBEC TAKE 1 BY MOUTH EACH DAY PANTOPRAZOLE SODIUM 56824743311 Merlin Hernandez MD CIPROFLOXACIN HCL 500 MG TABS TAKE 1 TABLET BY MOUTH 2 TIMES A DAY x 5 days CIPROFLOXACIN HCL 00247191460 Merlin Hernandez MD PROMETHAZINE HCL 12.5 MG TABS TAKE 1 BY MOUTH EVERY 6 HRS NEEDED FOR NAUSEA/VOMITING 201408/26 PROMETHAZINE HCL 48159045475 Merlin Hernandez MD DICLOFENAC SODIUM 75 MG TBEC TAKE 1 TAB BY MOUTH 2 TIMES A DAY NEEDED FOR PAIN DICLOFENAC SODIUM 62413922758 Madina Munoz APRN Medications Administered No information [...] in Blood ABS NEUTROPH 4729 CELLS/UL 10*3/uL 5920-9697 N Neutrophils [#/volume] in Blood Lab Report: [...] CCC & HP forms LABS ORDERED Accucheck 32729 Laboratory tests ordered BG RANDOM 96 mg/dL Glucose [Mass/volume] in Blood Plan of Care Type Date Detail Referral [facility] Neu[facility] Castellano-Neu[facility], [address] , [place], [address] Referral Neurology Referr corazon [facility] [place] [facility], [address], [place], [address] Referral Cardiology [facility] [place] [facility] [place], [address], [place], [address] Referral Gastroenterology Referral [place] [facility], [address], [place], [address] Pending order Accucheck 89108 Pending order T1 CBC no diff Pending [...] Pending order Uric Acid Pending order SNOMED-CT: 80457 3000 Smoking Cessation Counseling Pending order SNOMED-CT: 11857 [id number] Current Medications Documented Pending order Medication Recon ciliation Pending order 80233 ESTAB efoc /efoc/low Pending order Medication Recon ciliation Pending order SNOMED-CT: 86341 [id number] Current Medications Documented Pending order Urine Drug Scree n w/o Confirmation Pending Order exclud ed from report: Pending order Medication Recon ciliation Pending order 65017 ESTAB efoc /efoc/low Pending order Urine Drug Scree n w/o Confirmation Pending order 99987 ESTAB efoc /efoc/low Pending order 02516 ESTAB efoc /efoc/low Pending order SNOMED-CT: 91840 3000 Smoking Cessation Counseling Pending order SNOMED-CT: 55889 [id number] Current Medications Documented Pending order 66941 ESTAB efoc /efoc/low Pending order Urine Drug Scree n w/o Confirmation Pending order Psych Dx Eval WI TH E&M -MD/T[employer]IC Only Pending order SNOMED-CT: 79969 [id number] Current Medications Documented Pending order Phenytoin (Jamshid [...] Procedures Code Procedure Name Date Entry Date [facility]-[id number] Medication Reconciliation CPT-3075F Most recent systolic blood pressure 130-139 mm Hg CPT-3079F Most recent diastoli c blood pressure 80-89 mm Hg CPT-0513F Elevated blood press ure plan of care documented CPT-1159F Medication list docu mented in medical record CPT-1160F Review of all medica tions by a prescribing practitioner 4004F Patient screened for tobacco use and received tobacco cessation intervention SCT-[id number] Current every day smoker 21/07/15 SCT-[id number] Smoking cessation education SCT-[id number] Medication Reconciliation CPT-3074F Most recent systolic blood pressure <130 mm Hg CPT-3079F Most recent diastoli c blood pressure 80-89 mm Hg CPT-1159F Medication list docu mented in medical record CPT-1160F Review of all medica tions by a prescribing practitioner SCT-622111095 Current every day smoker 20 19/04/15 4004F Patient screened for tobacco use and received tobacco cessation intervention SCT-073538480 Smoking cessation education [facility] 1759 T1 CBC no diff [facility] 85136 T1 CMP [facility] 496 T1 HGBA1c [facility] 94430 T1 Lipid Panel [facility] 03256 T1 TSH reflex to free T4 10/04/14 41824 Fluzone Quadrivalent CPT-33947 IMADM >18YR IM ROUTE 1ST VAC/TOXOID 04/05 CPT-1159F Medication list docu mented in medical record SCT-[id number] Medication Reconciliation CPT-3075F Most recent systolic blood pressure 130-139 mm Hg CPT-3079F Most recent diastoli c blood pressure 80-89 mm Hg CPT-1159F Medication list docu mented in medical record CPT-1160F Review of all medica tions by a prescribing practitioner 4004F Patient screened for tobacco use and received tobacco cessation intervention SCT-096170627 Current every day smoker 20 17/01/18 SCT-686502101 Smoking cessation education SCT-[id number] Medication Reconciliation CPT-3075F Most recent systolic blood pressure 130-139 mm Hg 4004F Patient screened for tobacco use and received tobacco cessation intervention SCT-[id number] Medication Reconciliation 4004F Patient screened for tobacco use and received tobacco cessation intervention CPT-3077F Most recent systolic blood pressure >=140 mm Hg CPT-1159F Medication list docu mented in medical record CPT-1160F Review of all medica tions by a prescribing practitioner X-Ray Hand Right X-Ray Hand Right [facility] 1759 T1 CBC no diff [facility] 30317 T1 CMP [facility] 496 T1 HGBA1c [facility] 27189 T1 Lipid Panel [facility] 69892 T1 TSH reflex to free T4 10/01/03 [facility] 40737 T2 Vitamin D 25 Hydroxy 2023 4004F Patient screened for tobacco use and received tobacco cessation intervention CPT-3075F Most recent systolic blood pressure 130-139 mm Hg SCT-[id number] Medication Reconciliation SCT-758344184016566 Medication Reconciliation CPT-3074F Most recent systolic blood pressure <130 mm Hg CPT-3078F Most recent diastoli c blood pressure <80 mm Hg SCT-123395881681519 Medication Reconciliation 4004F Patient screened for tobacco use and received tobacco cessation intervention CPT-3074F Most recent systolic blood pressure <130 mm Hg CPT-3078F Most recent diastoli c blood pressure <80 mm Hg SCT-087853315570467 Medication Reconciliation CPT-3074F Most recent systolic blood pressure <130 mm Hg CPT-3078F Most recent diastoli c blood pressure <80 mm Hg CPT-1159F Medication list docu mented in medical record CPT-1160F Review of all medica tions by a prescribing practitioner [facility] 44802 T1 CMP Other [facility] Other - Patient Pay [facility] 6399 T1 CBC with diff [facility] 00547 T1 TSH reflex to free T4 09/01/23 [facility]-[id number] Medication Reconciliation 4004F Patient screened for tobacco use and received tobacco cessation intervention CPT-3074F Most recent systolic blood pressure <130 mm Hg CPT-3079F Most recent diastoli c blood pressure 80-89 mm Hg Other [facility] Other - Patient Pay 4004F Patient screened for tobacco use and received tobacco cessation intervention SCT-[id number] Medication Reconciliation CPT-3074F Most recent systolic blood pressure <130 mm Hg CPT-3078F Most recent diastoli c blood pressure <80 mm Hg CPT-1159F Medication list docu mented in medical record CPT-1160F Review of all medica tions by a prescribing practitioner [facility] 6399 T1 CBC with diff [facility] 927 T1 B12 [facility] 11399 T1 CMP [facility] 496 T1 HGBA1c [facility] 13643 T1 Lipid Panel [facility] 89081 T1 TSH reflex to free T4 08/29/23 [facility] 93377 T2 Vitamin D 25 Hydroxy 2022 4004F Patient screened for tobacco use and received tobacco cessation intervention CPT-3075F Most recent systolic blood pressure 130-139 mm Hg CPT-3079F Most recent diastoli c blood pressure 80-89 mm Hg SCT-[id number] Medication Reconciliation SCT-858758431018415 Medication Reconciliation CPT-94269 Pfizer COVID-19 Saran -sucrose 30 mcg/0.3 mL Booster (servin cap >=12 y) CPT-0054A Pfizer COVID-19 Saran -sucrose Booster Immunization admin CPT-3074F Most recent systolic blood pressure <130 mm Hg CPT-3079F Most recent diastoli c blood pressure 80-89 mm Hg SCT-588841444638894 Medication Reconciliation 24407 Fluzone Quadrivalent CPT-98373 IMADM >18YR IM ROUTE 1ST VAC/TOXOID 04/12 CPT II 4004F Patient screened for tobacco use and received tobacco cessation intervention SCT-681813138101006 Medication Reconciliation CPT-3074F Most recent systolic blood pressure <130 mm Hg CPT-3079F Most recent diastoli c blood pressure 80-89 mm Hg CPT-1159F Medication list docu mented in medical record CPT-1160F Review of all medica tions by a prescribing practitioner [facility]-[id number] Medication Reconciliation CPT II 4004F Patient screened [...] diastoli c blood pressure 80-89 mm Hg SCT-[id number] Medication Reconciliation CPT II 4004F Patient screened for tobacco use and received tobacco cessation intervention CPT-3074F Most recent systolic blood pressure <130 mm Hg CPT-3079F Most recent diastoli c blood pressure 80-89 mm Hg CPT-1159F Medication list docu mented in medical record CPT-1160F Review of all medica tions by a prescribing practitioner [facility] 6399 T1 CBC with diff [facility] 60008 T1 CMP [facility] 85961 T1 TSH reflex to free T4 07/31/25 [facility] 08232 T1 Lipid Panel [facility] 81846 T2 Vitamin D 25 Dihydroxy 20 16/10/25 SCT-[id number] Medication Reconciliation SCT-349798219375713 Medication Reconciliation 28488 Fluzone Quadrivalent CPT-82337 IMADM >18YR IM ROUTE 1ST VAC/TOXOID 04/21 CPT-3074F Most recent systolic blood pressure <130 mm Hg CPT-3078F Most recent diastoli c blood pressure <80 mm Hg SCT-738895087252832 Medication Reconciliation CPT-3075F Most recent systolic blood pressure 130-139 mm Hg CPT-3077F Most recent systolic blood pressure >=140 mm Hg CPT-3078F Most recent diastoli c blood pressure <80 mm Hg SCT-649116986539643 Medication Reconciliation [facility] 6399 T1 CBC with diff [facility] 64309 T1 CMP [facility] 496 T1 HGBA1c [facility] 60926 T1 Lipid Panel [facility] 43397 T1 TSH reflex to free T4 06/30/26 CPT-3075F Most recent systolic blood pressure 130-139 mm Hg CPT-3079F Most recent diastoli c blood pressure 80-89 mm Hg CPT-1159F Medication list docu mented in medical record CPT-3075F Most recent systolic blood pressure 130-139 mm Hg CPT-3075F Most recent systolic blood pressure 130-139 mm Hg SCT-730799020188421 Medication Reconciliation SCT-323172847446523 Medication Reconciliation CPT-3075F Most recent systolic blood pressure 130-139 mm Hg CPT-3079F Most recent diastoli c blood pressure 80-89 mm Hg 40666 Flulaval Quadrivalent CPT-95049 IMADM >18YR IM ROUTE 1ST VAC/TOXOID 04/22 CPT-1159F Medication list docu mented in medical record CPT-1160F Review of all medica tions by a prescribing practitioner CPT-3077F Most recent systolic blood pressure >=140 mm Hg SCT-[id number] Medication Reconciliation SCT-891172352168815 Medication Reconciliation [facility] 6399 T1 CBC with diff [facility] 66705 T1 CMP [facility] 80392 T1 Lipid Panel [facility] 26305 T1 TSH reflex to free T4 202 [facility] 70308 T2 HGB Electrophoresis 10/24 [facility] 82474 T2 Vitamin D 25 Dihydroxy 20 14/10/29 SCT-[id number] Medication Reconciliation CPT-3077F Most recent systolic blood pressure >=140 mm Hg CPT-3078F Most recent diastoli c blood pressure <80 mm Hg CPT-3075F Most recent systolic blood pressure 130-139 mm Hg SCT-965286056049203 Medication Reconciliation CPT-01862 Fluzone Quadrivalent Preservative Free prefilled syringe (36 mos +) CPT-78351 IMADM >18YR IM ROUTE 1ST VAC/TOXOID 04/13 [facility] 54615 T2 Vitamin D 25 Hydroxy 2018 SCT-729739045390035 Medication Reconciliation CPT-88635 Venipuncture 01935 4 CPT-3077F Most recent systolic blood pressure >=140 mm Hg SCT-922023149 SNOMED-CT: 146910664 Smoking Cessation Counseling SCT-399867112445991 SNOMED-CT: 402172351 680499 Current Medications Documented [facility] 11125 T1 CMP CPT-3077F Most recent systolic blood pressure >=140 mm Hg SCT-828885451362474 Medication Reconciliation SCT-367803726765033 Medication Reconciliation CPT-3075F Most recent systolic blood pressure 130-139 mm Hg CPT-3078F Most recent diastoli c blood pressure <80 mm Hg CPT-3074F Most recent systolic blood pressure <130 mm Hg CPT-3079F Most recent diastoli c blood pressure 80-89 mm Hg CPT-3077F Most recent systolic blood pressure >=140 mm Hg SCT-302364700739210 Medication Reconciliation SCT-459499213348482 Medication Reconciliation CPT-3075F Most recent systolic blood pressure 130-139 mm Hg SCT-368892081092757 Medication Reconciliation CPT-74571 Fluzone Quadrivalent Preservative Free prefilled syringe (36 mos +) CPT-50757 IMADM >18YR IM ROUTE 1ST VAC/TOXOID 06/12 CPT-3075F Most recent systolic blood pressure 130-139 mm Hg CPT-3079F Most recent diastoli c blood pressure 80-89 mm Hg CPT-3074F Most recent systolic blood pressure <130 mm Hg CPT-3074F Most recent systolic blood pressure <130 mm Hg SCT-418188110003531 Medication Reconciliation SCT-920913188101764 Medication Reconciliation CPT-3074F Most recent systolic blood pressure <130 mm Hg CPT-3079F Most recent diastoli c blood pressure 80-89 mm Hg CPT-3074F Most recent systolic blood pressure <130 mm Hg CPT-3079F Most recent diastoli c blood pressure 80-89 mm Hg SCT-176092612159718 Medication Reconciliation CPT-3075F Most recent systolic blood pressure 130-139 mm Hg CPT-3079F Most recent diastoli c blood pressure 80-89 mm Hg SCT-209051522923457 Medication Reconciliation [facility] 6399 T1 CBC with diff [facility] 25693 T1 CMP [facility] 83328 T1 Lipid Panel [facility] 22064 T2 Vitamin D 25 Hydroxy 2017 CPT-3074F Most recent systolic blood pressure <130 mm Hg CPT-3078F Most recent diastoli c blood pressure <80 mm Hg SCT-679678299272884 Medication Reconciliation SCT-497355573852107 Medication Reconciliation CPT-3074F Most recent systolic blood pressure <130 mm Hg CPT-3078F Most recent diastoli c blood pressure <80 mm Hg CPT-3074F Most recent systolic blood pressure <130 mm Hg CPT-3079F Most recent diastoli c blood pressure 80-89 mm Hg SCT-168351685910872 Medication Reconciliation SCT-505523871988200 Medication Reconciliation CPT-3074F Most recent systolic blood pressure <130 mm Hg CPT-3079F Most recent diastoli c blood pressure 80-89 mm Hg SCT-819810325923633 Medication Reconciliation SCT-497329232154714 Medication Reconciliation SCT-565591768485105 Medication Reconciliation SCT-417794076182437 SNOMED-CT: 156412423 909425 Current Medications Documented CPT-97218 Fluzone Quadrivalent Preservative Free Intramuscular Suspension 0.5 ML CPT-44886 IMADM >18YR IM ROUTE 1ST VAC/TOXOID 05/25 59098 [facility] Test # BMP 9 49847 [facility] Test # Hepatitic Function Panel 79821 [facility] # Lipid Panel 9 SCT-434913574 Giving encouragement to exercise SCT-366085894 Lifestyle education regarding diet 03/25 SCT-632809377834401 Medication Reconciliation SCT-478543863836823 Medication Reconciliation SCT-511713500 SNOMED-CT: 511136411 Smoking Cessation Counseling SCT-727131496894290 SNOMED-CT: 366563582 698385 Current Medications Documented X-Ray Foot X-Ray Foot 905 [facility] Test # Uric Acid SCT-874871010797841 Medication Reconciliation SCT-180525244574271 Medication Reconciliation SCT-402450342407453 SNOMED-CT: 347857737 336823 Current Medications Documented 27276 [facility] Test # Urine Drug Screen w/o Confirmation SCT-672659884723696 Medication Reconciliation SCT-842298357 SNOMED-CT: 037316779 Smoking Cessation Counseling SCT-704096086962633 SNOMED-CT: 972574253 461163 Current Medications Documented 22722 [facility] Test # Urine Drug Screen w/o Confirmation CPT-82245 Psych Dx Eval WITH E&M -MD/TANK CAR MECH[employer]IC Only 2014 SCT-258249792610760 SNOMED-CT: 128965768 261025 Current Medications Documented 927 [facility] Test # B12 466 [facility] # Folic Acid 713 [facility] # Phenytoin (Dilantin) 201 10/04/05 Other [facility] Other 6399 [facility] # CBC with diff 6 78086 [facility] # BMP 6 37260 [facility] # Hepatitic Function Panel 496 [facility] # HGBA1c 84758 [facility] # Lipid Panel 6 04251 [facility] # TSH reflex to free T4 SEP NEURO [facility] Neurology Referral [facility] [place] [facility] [place] [facility] [facility] [place] G[facility]ology Re ferral [place] [facility] ct abd pel w edg CT Abdomen and Pelvis w contrast 2013 ECHO ECHO 6399 [facility] Test # CBC with diff 7 65326 [facility] # BMP 7 78966 [facility] # Hepatitic Function Panel 81966 [facility] # Acute Hepatits Panel 2 20740 [facility] # HIV Antibody -consent required 2013 8847 [facility] Test # Protime INR 76429 [facility] # TSH reflex to free [...]
== END 2025-03-05 23:59 | disposition home or self-care (01) ==
LOC: RAD 09:20
PROVIDERS: Visit Provider Podiatrist
DX: S92.351A Displaced fracture of fifth metatarsal bone, right foot, initial encounter for closed fracture (principal)
CPT/HCPCS: 73630

== ENCOUNTER 2025-04-02 14:19 | Outpatient (CLI) | payer MEDICAID, SELFPAY ==
--- NOTE | 2025-04-02 14:22 | XR_ITS ---
FINAL REPORT CLINICAL HISTORY: left foot pain FINDINGS: AP, oblique and lateral views of the left foot were obtained. There is hammertoe deformity of the 2nd through 4th toes. There is no acute fracture or dislocation. The joint spaces are preserved. Soft tissues are unremarkable. IMPRESSION: No acute osseous abnormality of the left foot. Reviewed, Interpreted and Dictated by Veronica Venegas MD Transcribed by Alexandra Carpenter Authenticated and [facility]
--- NOTE | 2025-04-02 14:22 | XR_ITS ---
FINAL REPORT CLINICAL HISTORY: Right 5th Met Fracture COMPARISON: None FINDINGS: AP, oblique and lateral views of the right foot were obtained. There is no acute fracture or dislocation. The joint spaces are preserved. There are hammertoe deformities in the 2nd through 4th toes. Soft tissues are unremarkable. IMPRESSION: No acute osseous abnormality of the right foot. 2nd through 4th hammertoes are noted. Reviewed, Interpreted and Dictated by Veronica Venegas MD Transcribed by Della Nunez Authenticated and [facility]
--- OUTSIDE RECORDS SUMMARY | 2025-04-02 14:22 | XMS_ITS ---
Author Organization [employer] [facility] Address [address] [place] [phone] Phone Care Team Providers Care Drier Helper Name Role Phone Lucrecia Lozano Primary Care Physician [phone] Conditions or Problems Problem Name Problem Code Onset Date Status Entry Date Provider Comment Standard Description Annotate Body mass index (BMI) 20.0-20.9; adult Z68.20 (ICD-10-CM ) 07/12 Active 07/13 [facility] Body mass index [BMI] 20.0-20.9, adult Body mass index (BMI) 19 or less; adult Z68.1 (ICD-10-CM ) 01/11 Correction 01/20 [facility] Body mass index [BMI] 19.9 or less, adult Counseling for nutrition Z71.3 (ICD-10-CM ) 01/11 Inactive 01/20 [facility] Dietary counseling and surveillance Body mass index (BMI) 19 or less; adult Z68.1 (ICD-10-CM ) 01/11 Removed 01/20 [facility] Body mass index [BMI] 19.9 or less, adult Counseling for nutrition Z71.3 (ICD-10-CM ) 01/11 Inactive 01/20 [facility] Dietary counseling and surveillance Body mass index (BMI) 19 or less; adult Z68.1 (ICD-10-CM ) Correction [facility] Body mass index [BMI] 19.9 or less, adult Counseling for nutrition Z71.3 (ICD-10-CM ) 12/12 Inactive 12/12 [facility] SAFETY AND SECURITY MANAGER Dietary counseling and surveillance Unspecified superficial injury of right ring finger, sequela 255898910 (SNOMED CT) 11/28 Active 11/28 [facility] SAFETY AND SECURITY MANAGER Superficial injury of finger Counseling for nutrition Z71.3 (ICD-10-CM ) 11/28 Inactive 11/28 [facility] SAFETY AND SECURITY MANAGER Dietary counseling and surveillance Counseling for nutrition Z71.3 (ICD-10-CM ) Inactive Termo Bow PMHNP Dietary counseling and surveillance Body mass index (BMI) 19 or less; adult Z68.1 (ICD-10-CM ) Removed Termo Selwyn PMHNP Body mass index [BMI] 19.9 or less, adult Body mass index (BMI) 21.0-21.9; adult Z68.21 (ICD-10-CM ) 10/25 Correction 10/26 Lucrecia Bow PMHNP Body mass index [BMI] 21.0-21.9, adult Decreased body mass index 3869975 (SNOMED CT) 02/15 Correction 02/15 Lucrecia Bow PMHNP Decreased body mass index Weight loss 00206019 (SNOMED CT) 02/15 Active 02/15 Olga Reena DO Weight loss Decreased body mass index 2299360 (SNOMED CT) 02/15 Removed 02/15 Olga Reena DO Decreased body mass index Counseling for nutrition Z71.3 (ICD-10-CM ) 01/20 Inactive 01/20 Lucrecia Selwyn PMHNP Dietary counseling and surveillance Body mass index (BMI) 21.0-21.9; adult Z68.21 (ICD-10-CM ) 10/25 Removed 10/26 Lucrecia Bow PMHNP Body mass index [BMI] 21.0-21.9, adult Body mass index (BMI) 21.0-21.9; adult Z68.21 (ICD-10-CM ) 10/18 Correction 10/18 Lucrecia Samano PMHNP Body mass index [BMI] 21.0-21.9, adult Substance Abuse 49468941 (SNOMED CT) 10/26 Active 10/26 [facility] Substance abuse Depression 27282293 (SNOMED CT) 10/26 Active 10/26 Termohaydee Samano HN Depressive disorder Anxiety Disorder 095241113 (SNOMED CT) 10/26 Active 10/26 Lucrecia Samano [facility] Anxiety disorder Body mass index (BMI) 21.0-21.9; [...] mass index [BMI] 22.0-22.9, adult Weight loss 54100481 (SNOMED CT) 10/18 Active 10/18 Olga Reena DO Weight loss Counseling for nutrition Z71.3 (ICD-10-CM ) 07/26 Inactive 07/26 Shalonda Parada [facility] Dietary counseling and surveillance Body mass index (BMI) 22.0-22.9; adult Z68.22 (ICD-10-CM ) 07/26 Removed 07/26 Shalonda Ankit Randolphon ANIMAL GENETICIST Body mass index [BMI] 22.0-22.9, adult Body mass index (BMI) 23.0-23.9; adult Z68.23 (ICD-10-CM ) Correction Shalonda Ankit Randolphon ANIMAL GENETICIST Body mass index [BMI] 23.0-23.9, adult Body mass index (BMI) 23.0-23.9; adult Z68.23 (ICD-10-CM ) Removed Olga Reena DO Body mass index [BMI] 23.0-23.9, adult Body mass index (BMI) 21.0-21.9; adult Z68.21 (ICD-10-CM ) Correction Olga Reena DO Body mass index [BMI] 21.0-21.9, adult Counseling for nutrition Z71.3 (ICD-10-CM ) Inactive Shalonda Ankit [place]on ANIMAL GENETICIST Dietary counseling and surveillance Body mass index (BMI) 21.0-21.9; adult Z68.21 (ICD-10-CM ) Removed Shalonda Ankit Randolphon ANIMAL GENETICIST Body mass index [BMI] 21.0-21.9, adult Body mass index (BMI) 23.0-23.9; adult Z68.23 (ICD-10-CM ) 01/18 Correction 01/18 Shalonda G Karma ANIMAL GENETICIST Body mass index [BMI] 23.0-23.9, adult Body mass index (BMI) 23.0-23.9; adult Z68.23 (ICD-10-CM ) 01/18 Removed 01/18 Shalonda G Karma ANIMAL GENETICIST Body mass index [BMI] 23.0-23.9, adult Counseling [...] DO Dietary counseling and surveillance Tobacco User [id number] (SNOMED CT) 10/20 Active 10/20 Olga Reena [...] Z68.21 (ICD-10-CM ) 03/06 Correction 03/06 Olga Renea DO Body mass index [BMI] 21.0-21.9, adult Counseling for nutrition Z71.3 (ICD-10-CM ) 03/06 Inactive 03/06 Shalonda G Hale ANIMAL GENETICIST Dietary counseling and surveillance Body mass index (BMI) 21.0-21.9; adult Z68.21 (ICD-10-CM ) 03/06 Removed 03/06 Shalonda G Karma ANIMAL GENETICIST Body mass index [BMI] 21.0-21.9, adult Body mass index (BMI) 22.0-22.9; adult Z68.22 (ICD-10-CM ) 11/28 Correction 11/28 Shalonda G Karma ANIMAL GENETICIST Body mass index [BMI] 22.0-22.9, adult Counseling for nutrition Z71.3 (ICD-10-CM ) 11/28 Inactive 11/28 Shalonda G Hale ANIMAL GENETICIST Dietary counseling and surveillance Body mass index (BMI) 22.0-22.9; adult Z68.22 (ICD-10-CM ) 11/28 Removed 11/28 Shalonda G Hale ANIMAL GENETICIST Body mass index [BMI] 22.0-22.9, adult Body mass index (BMI) 22.0-22.9; adult Z68.22 (ICD-10-CM ) 10/21 Correction 10/21 Shalonda G Hale ANIMAL GENETICIST Body mass index [BMI] 22.0-22.9, adult Body mass index (BMI) 22.0-22.9; adult Z68.22 (ICD-10-CM ) 10/21 Removed 10/21 Olga Reena DO Body mass index [BMI] 22.0-22.9, adult Marijuana abuse 29809578 (SNOMED CT) 10/21 Active 10/21 Olga Reena DO Harmful pattern of use of Cannabis Alcohol use 870018 (SNOMED CT) 10/21 Active 10/21 Olga Reena [...] index [BMI] 23.0-23.9, adult Influenza vaccination given 258531136 (SNOMED CT) Active Nabeel Donovan SAFETY AND SECURITY MANAGER Medication given Body mass index (BMI) 23.0-23.9; adult Z68.23 (ICD-10-CM ) Removed Shaila Lopez MA Body mass index [BMI] 23.0-23.9, adult Body mass index (BMI) 21.0-21.9; adult Z68.21 (ICD-10-CM ) 02/07 Correction 02/07 Shaila Martinezra [facility] Body mass index [BMI] 21.0-21.9, adult Counseling for nutrition Z71.3 (ICD-10-CM ) 02/07 Inactive 02/07 Shalonda Ankit Parada ANIMAL GENETICIST Dietary counseling and surveillance Body mass index (BMI) 21.0-21.9; adult Z68.21 (ICD-10-CM ) 02/07 Removed 02/07 Shalonda G Karma ANIMAL GENETICIST Body mass index [BMI] 21.0-21.9, adult Body mass index (BMI) 21.0-21.9; adult Z68.21 (ICD-10-CM ) 10/24 Correction 10/24 Shalonda Ankit Parada ANIMAL GENETICIST Body mass index [BMI] 21.0-21.9, adult Body [...] (ICD-10-CM ) 08/02 Removed 08/02 Shalonda G Hale ANIMAL GENETICIST Body mass index [BMI] 24.0-24.9, adult Counseling for nutrition Z71.3 (ICD-10-CM ) 08/02 Inactive 08/02 Shalonda G Karma ANIMAL GENETICIST Dietary counseling and surveillance Body mass index (BMI) 25.0-25.9; adult Z68.25 (ICD-10-CM ) Correction Shalonda G Karma ANIMAL GENETICIST Body mass index [BMI] 25.0-25.9, adult Flu vaccine 81542526 (SNOMED CT) Inactive Esteban Coombs RN Administration [...] ) 03/02 Inactive 03/02 Shalonda G Karma ANIMAL GENETICIST Dietary counseling and surveillance Body mass index (BMI) 25.0-25.9; adult Z68.25 (ICD-10-CM ) 03/02 Removed 03/02 Shalonda G Hale ANIMAL GENETICIST Body mass index [BMI] 25.0-25.9, adult Body mass index (BMI) 25.0-25.9; adult Z68.25 (ICD-10-CM ) 11/03 Correction 11/03 Shalonda G Hale ANIMAL GENETICIST Body mass index [BMI] 25.0-25.9, adult Counseling for nutrition Z71.3 (ICD-10-CM ) 11/03 Inactive 11/03 Shalonda G Karma ANIMAL GENETICIST Dietary counseling and surveillance Body mass index (BMI) 25.0-25.9; adult Z68.25 (ICD-10-CM ) 11/03 Removed 11/03 Shalonda G Hale ANIMAL GENETICIST Body mass index [BMI] 25.0-25.9, adult Body mass index (BMI) 25.0-25.9; adult Z68.25 (ICD-10-CM ) 10/09 Correction 10/09 Shalonda G Karma ANIMAL GENETICIST Body mass index [BMI] 25.0-25.9, adult Depression 47702349 (SNOMED CT) 11/03 Active 11/03 Shalonda G Hale ANIMAL GENETICIST Depressive disorder Body mass index (BMI) 25.0-25.9; adult Z68.25 (ICD-10-CM ) 10/09 Removed 10/09 Ye Pringle DO Body mass index [BMI] 25.0-25.9, adult Body mass index (BMI) 28.0-28.9; adult Z68.28 (ICD-10-CM ) 08/14 Correction 08/14 Ye Pringle DO Body mass index [BMI] 28.0-28.9, adult Hypertensio n 90083174 (SNOMED CT) 10/09 Active 10/09 Ye Pringle DO Hypertensive disorder Counseling for nutrition Z71.3 (ICD-10-CM ) 08/14 Inactive 08/14 Shalonda G Karma ANIMAL GENETICIST Dietary counseling and surveillance Body mass index (BMI) 28.0-28.9; adult Z68.28 (ICD-10-CM ) 08/14 Removed 08/14 Shalonda G Hale ANIMAL GENETICIST Body mass index [BMI] 28.0-28.9, adult Body mass index (BMI) 26.0-26.9; adult Z68.26 (ICD-10-CM ) 08/13 Correction 08/13 Shalonda G Karma ANIMAL GENETICIST Body mass index [BMI] 26.0-26.9, adult Counseling for nutrition Z71.3 (ICD-10-CM ) 07/10 Inactive 07/10 Kimberly Jean APRN Dietary counseling and surveillance Counseling for nutrition Z71.3 (ICD-10-CM ) 08/13 Inactive 08/13 Shalonda G Hale ANIMAL GENETICIST Dietary counseling and surveillance Body mass index (BMI) 26.0-26.9; adult Z68.26 (ICD-10-CM ) 08/13 Removed 08/13 Shalonda G Hale ANIMAL GENETICIST Body mass index [BMI] 26.0-26.9, adult Body mass index (BMI) 23.0-23.9; adult Z68.23 (ICD-10-CM ) 03/20 Correction 03/20 Shalonda G Hale ANIMAL GENETICIST Body mass index [BMI] 23.0-23.9, adult Counseling for nutrition Z71.3 (ICD-10-CM ) 03/20 Inactive 03/20 Shalonda G Karma ANIMAL GENETICIST Dietary counseling and surveillance Body mass index (BMI) 23.0-23.9; adult Z68.23 (ICD-10-CM ) 03/20 Removed 03/20 Shalonda G Hale ANIMAL GENETICIST Body mass index [BMI] 23.0-23.9, adult Body mass index (BMI) 24.0-24.9; adult Z68.24 (ICD-10-CM ) 12/19 Correction 12/19 Shalonda G Karma ANIMAL GENETICIST Body mass index [BMI] 24.0-24.9, adult Counseling for nutrition Z71.3 (ICD-10-CM ) 12/19 Inactive 12/19 Shalonda G Hale ANIMAL GENETICIST Dietary counseling and surveillance Body mass index (BMI) 24.0-24.9; adult Z68.24 (ICD-10-CM ) 12/19 Removed 12/19 Shalonda G Hale ANIMAL GENETICIST Body mass index [BMI] 24.0-24.9, adult Body mass index (BMI) 24.0-24.9; adult Z68.24 (ICD-10-CM ) 12/12 Correction 12/12 Shalonda Ankit Karma NAVARROP Body mass index [BMI] 24.0-24.9, adult Vitamin D deficiency 11826897 (SNOMED CT) 12/12 Active 12/12 Cain Patel [...] ) 08/16 Removed 08/16 Shalonda Ankit Randolphon ANIMAL GENETICIST Body mass index [BMI] 21.0-21.9, adult Body mass index (BMI) 20.0-20.9; adult Z68.20 (ICD-10-CM ) 08/16 Correction 08/16 Shalonda Ankit Randolphon ANIMAL GENETICIST Body mass index [BMI] 20.0-20.9, adult Body mass index (BMI) 20.0-20.9; adult Z68.20 (ICD-10-CM ) 08/16 Removed 08/16 Ladonna Kwok MD Body mass index [BMI] 20.0-20.9, adult Physical exam 6309435 (SNOMED CT) 08/16 Inactive 08/16 Ladonna Kwok MD Physical examination Counseling for nutrition Z71.3 (ICD-10-CM ) 08/16 Inactive 08/16 Ladonna Kwok MD Dietary counseling and surveillance Body mass index (BMI) 20.0-20.9; adult Z68.20 (ICD-10-CM ) 07/02 Correction 07/02 Ladonna Kwok MD Body mass index [BMI] 20.0-20.9, adult Counseling for nutrition Z71.3 (ICD-10-CM ) 07/02 Inactive 07/02 Shalonda Randolphon ANIMAL GENETICIST Dietary counseling and surveillance Body mass index (BMI) 20.0-20.9; adult Z68.20 (ICD-10-CM ) 07/02 Removed 07/02 Shalonda G Hale ANIMAL GENETICIST Body mass index [BMI] 20.0-20.9, adult Body mass index (BMI) 21.0-21.9; adult Z68.21 (ICD-10-CM ) 12/24 Correction 12/24 Shalonda G Hale ANIMAL GENETICIST Body mass index [BMI] 21.0-21.9, adult Body mass index (BMI) 21.0-21.9; adult Z68.21 (ICD-10-CM ) 12/24 Removed 12/24 Alva Dee APRN Body mass index [BMI] 21.0-21.9, adult Body mass index (BMI) 21.0-21.9; adult Z68.21 (ICD-10-CM ) 12/06 Correction 12/06 Alva Dee APRN Body mass index [BMI] 21.0-21.9, adult Counseling for nutrition Z71.3 (ICD-10-CM ) 12/06 Inactive 12/06 Shalonda G Hale ANIMAL GENETICIST Dietary counseling and surveillance Body mass index (BMI) 21.0-21.9; adult Z68.21 (ICD-10-CM ) 12/06 Removed 12/06 Shalonda MARTINEZ Body mass index [BMI] 21.0-21.9, adult Acute gouty arthropathy - ? OF 790792770 (SNOMED CT) 12/10 Resolved 12/10 Madina Munoz APRN Gouty arthropathy Acute gouty arthropathy - ? OF 842195275 (SNOMED CT) 12/10 Removed 12/10 Madina Munoz APRN Gouty arthropathy Seizure disorder 269402145 (SNOMED CT) Active Madina Munoz APRN Seizure disorder Myocardial infarction, anterior wall - HX OF 38628180 (SNOMED CT) Active Madina Munoz APRN Myocardial infarction Hx of CVA - R HEMIPARESIS 612165456 (SNOMED CT) Active Madina Munoz APRN History of cerebrovascular accident Other and unspecified mitral valve diseases 96910948 (SNOMED CT) Active Madina Munoz APRN Mitral valve disorder ELEVATED BP READING WITHOUT DX HYPERTENSIO N R03.0 (ICD-10-CM ) 07/19 Resolved 07/19 Madina Munoz APRN Elevated blood-pressure reading, without diagnosis of hypertension KNEE PAIN, RIGHT 94337686 (SNOMED CT) 08/03 Resolved 08/03 Madina Munoz APRN Knee pain ABDOMINAL PAIN 03805431 (SNOMED CT) 08/23 Resolved 08/23 Madina Munoz APRN Abdominal pain DIARRHEA 08203824 (SNOMED CT) 08/23 Resolved 08/23 Madina Munoz APRN Diarrhea Cardiomyopa thy 68193478 (SNOMED CT) 08/23 Active 08/23 Madina Munoz APRN Cardiomyopathy Drug abuse, hx of 054152710 (SNOMED CT) 08/23 Active 08/23 Madina Munoz APRN History of drug abuse ENCOUNTERS UNSPECIFIED ADMINISTRAT HAIDER PURPOSE Z02.89 (ICD-10-CM ) 02/06 Resolved 02/06 Madina Munoz APRN Encounter for other administrative examinations Tobacco abuse 25843436 (SNOMED CT) Active Madina Munoz APRN Tobacco dependence syndrome Anxiety 873828513 (SNOMED CT) Active Merlin Hernandez MD Anxiety disorder ENCOUNTERS UNSPECIFIED ADMINISTRAT HAIDER PURPOSE Z02.89 (ICD-10-CM ) 02/06 Removed 02/06 Merlin Hernandez MD Encounter for other administrative examinations 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 (SNOMED CT) 02/06 Active 02/06 Merlin Hernandez MD Anoxic encephalopathy DRUG ABUSE 88623618 (SNOMED CT) 08/23 Inactive 08/23 Merlin Hernandez MD Drug abuse HEART MURMUR, SYSTOLIC 33758343 (SNOMED CT) 08/23 Inactive 08/23 Merlin Hernandez MD Systolic murmur DIARRHEA 16291490 (SNOMED CT) 08/23 Removed 08/23 Merlin Hernandez MD Diarrhea ABDOMINAL PAIN 79855701 (SNOMED CT) 08/23 Removed 08/23 Merlin Hernandez MD Abdominal pain KNEE PAIN, RIGHT 41350389 (SNOMED CT) 08/03 Removed 08/03 Mdaina Munoz APRN Knee pain CERVICAL MUSCLE STRAIN 085203293 (SNOMED CT) 07/19 Resolved 07/19 Madina Munoz APRN Strain of neck muscle CERVICAL MUSCLE STRAIN 262961343 (SNOMED CT) 07/19 Removed 07/19 Madina Munoz [...] for 10 days for DENTAL PAIN. ibuprofen 01241995613 Gisell Diana on DMD RA VITAMIN C 250 MG TABS Take 1 tablet by mouth single dose ascorbic acid (vitamin c) 30127810112 [facility] SAFETY AND SECURITY MANAGER LISINOPRIL 10 MG TABS Take 1 tablet by mouth once a day TAKE ONE TABLET BY MOUTH DAILY lisinopril 08085069548 [facility] SAFETY AND SECURITY MANAGER OMEPRAZOLE 20 MG CPDR Take 1 capsule by mouth once a day 11/28 omeprazole 01758241990 [facility] SAFETY AND SECURITY MANAGER CARVEDILOL 25 MG TABS Take 1 tablet by mouth twice a day TAKE ONE TABLET BY MOUTH TWICE A DAY carvedilol 48661206122 [facility] SAFETY AND SECURITY MANAGER ASPIRIN LOW DOSE 81 MG TBEC Take 1 tablet by mouth once a day aspirin 73676176945 [facility] SAFETY AND SECURITY MANAGER FLUOXETINE HCL 20 MG CAPS Take 1 capsule by mouth once a day 08/21 fluoxetine 06339895920 Lucrecia Samano PMHNP MIRTAZAPINE 45 MG TABS Take 1 tablet by mouth at bedtime mirtazapine 87506223685 Lucrecia Samano PMHNP FLUOXETINE HCL 20 MG CAPS Take 1 capsule by mouth once a day 07/19 fluoxetine 95580407326 Lucreciabandar Samano PMHNP MIRTAZAPINE 45 MG TABS TAKE ONE TABLET BY MOUTH AT BEDTIME mirtazapine 09203976260 Lucrecia Samano PMHNP OMEPRAZOLE 20 MG CPDR Take 1 capsule by mouth once a day omeprazole 26896006757 Olga Reena DO LISINOPRIL 2.5 MG TABS TAKE ONE TABLET BY MOUTH DAILY lisinopril 53132163513 Olga Reena DO MIRTAZAPINE 45 MG TABS Take 1 tablet by mouth at bedtime 01/14 mirtazapine 46621464133 Nona Hayes SAFETY AND SECURITY MANAGER BCADM MIRTAZAPINE 45 MG TABS TAKE ONE TABLET BY MOUTH AT BEDTIME mirtazapine 49020747375 Lucreciabandar Samano PMHNP MIRTAZAPINE 45 MG TABS Take 1 tablet by mouth at bedtime mirtazapine 46685735878 Lucrecia Samano PMHNP FLUOXETINE HCL 20 MG CAPS Take 1 capsule by mouth once a day fluoxetine 80434407148 Lucrecia Samano PMHNP LISINOPRIL 2.5 MG TABS TAKE ONE TABLET BY MOUTH DAILY lisinopril 96920860310 Olga Reena DO FLUOXETINE HCL 20 MG CAPS Take 1 capsule by mouth once a day 01/21 fluoxetine 94552825253 Shalonda Parada ANIMAL GENETICIST LISINOPRIL 2.5 MG TABS Take 1 tablet by mouth once a day 08/24 lisinopril 60779475329 Diana Ny SAFETY AND SECURITY MANAGER LISINOPRIL 2.5 MG TABS TAKE ONE TABLET BY MOUTH DAILY lisinopril 01009329162 Olga Reena DO LISINOPRIL 2.5 MG TABS Take 1 tablet by mouth once a day lisinopril 34270643369 Olga Reena DO LISINOPRIL 2.5 MG TABS Take 1 tablet by mouth once a day lisinopril 30959378800 Clara Ishan AL FLUOXETINE HCL 20 MG CAPS Take 1 capsule by mouth once a day 10/09 fluoxetine 57856931596 Shalonda Parada ANIMAL GENETICIST FLUOXETINE HCL 20 MG CAPS Take 1 capsule by mouth once a day 07/17 fluoxetine 43977699999 Shalonda Parada ANIMAL GENETICIST MIRTAZAPINE 45 MG TABS Take 1 tablet by mouth at bedtime mirtazapine 19314582001 Shalonda Parada ANIMAL GENETICIST LISINOPRIL 2.5 MG TABS Take 1 tablet by mouth once a day lisinopril 42907296788 Alva Benjamin APRN MIRTAZAPINE 45 MG TABS Take 1 tablet by mouth every night 01/15 mirtazapine 85355034470 Nirav Carvalho MD BUSPIRONE HCL 5 MG TABS Take 1 tablet by mouth twice a day for anxiety 12/16 buspirone 07216927846 Nirav Carvalho MD MIRTAZAPINE 45 MG TABS 11/18 mirtazapine 57485807454 Emily Joel MA MIRTAZAPINE 45 MG TABS Take 1 tablet by mouth every night 12/18 mirtazapine 74778106720 Nirav Carvalho MD BUSPIRONE HCL 5 MG TABS Take 1 tablet by mouth twice a day for anxiety 12/18 buspirone 37049792893 Nirav Carvalho MD MIRTAZAPINE 45 MG TABS mirtazapine 90345429397 Emily Joel MA FLUOXETINE HCL 20 MG CAPS Take 1 capsule by mouth twice a day fluoxetine 33062055786 Olga Reena DO CARVEDILOL 25 MG TABS Take 1 tablet by mouth twice a day TAKE ONE TABLET BY MOUTH TWICE A DAY carvedilol 57817784004 Olga Reena DO ASPIRIN EC 81 MG TBEC Take 1 tablet by mouth once a day aspirin 06693563614 Olga Reena DO calcium citrate-vitamin D3 250 mg-5 mcg (200 unit) tablet Take 1 tablet by mouth once a day 10/20 calcium citrate-vitamin d3 62180950431 Radha Carr MA FLUOXETINE HCL 20 MG CAPS Take 1 capsule by mouth twice a day 10/22 fluoxetine 28770393987 Michael Bang APRN MIRTAZAPINE 45 MG TABS Take 1 tablet by mouth every night 10/22 mirtazapine 20241862729 Michael Bang APRN CARVEDILOL 25 MG TABS TAKE ONE TABLET BY MOUTH TWICE A DAY 08/25 carvedilol 87916314891 Jennifer Aguero SAFETY AND SECURITY MANAGER CARVEDILOL 25 MG TABS Take 1 tablet by mouth twice a day TAKE ONE TABLET BY MOUTH TWICE A DAY carvedilol 21323629108 Salome Moya SAFETY AND SECURITY MANAGER CARVEDILOL 25 MG TABS TAKE ONE TABLET BY MOUTH TWICE A DAY carvedilol 55150676100 Olga Reena DO LISINOPRIL 2.5 MG TABS Take 1 tablet by mouth once a day lisinopril 51439651653 Olga Reena DO calcium citrate-vitamin D3 250 mg-5 mcg (200 unit) tablet Take 1 tablet by mouth once a day calcium citrate-vitamin d3 35241369528 Radha Carr MA VITAMIN C 250 MG TABS Take 1 tablet by mouth single dose ascorbic acid (vitamin c) 45071425363 Radha Carr MA CARVEDILOL 25 MG TABS TAKE ONE TABLET BY MOUTH TWICE A DAY 07/28 carvedilol 97666473711 Jennifer Aguero APRN LISINOPRIL 2.5 MG TABS Take 1 tablet by mouth once a day lisinopril 38288902808 Jennifer Laci BLANKENSHIPN MIRTAZAPINE 45 MG TABS Take 1 tablet by mouth every night mirtazapine 19414115028 Shalonda MARTINEZ CARVEDILOL 25 MG TABS Take 1 tablet by mouth twice a day 11/18 carvedilol 58538319758 Jennifer Aguero APRN VITAMIN D 50 MCG (2000 UT) TABS Take 1 tablet by mouth once a day cholecalciferol (vitamin d3) 16828323820 Jennifer Aguero APRN FLUOXETINE HCL 20 MG CAPS Take 1 capsule by mouth twice a day fluoxetine 78072397218 Shalonda MARTINEZ ASPIRIN EC 81 MG TBEC Take 1 tablet by mouth once a day aspirin 31959832208 Jennifer Laci BLANKENSHIPN KEPPRA 750 MG TABS Take 1 tablet by mouth twice a day levetiracetam 91386227514 Jennifer Gregoriojay SAFETY AND SECURITY MANAGER CARVEDILOL 25 MG TABS TAKE ONE TABLET BY MOUTH TWICE A DAY carvedilol 32243284591 Olga Reena DO MIRTAZAPINE 30 MG TABS Take 1 at bedtime MIRTAZAPINE 23733863334 Shaila Lopez MA MIRTAZAPINE 45 MG TABS Take 1 at bedtime. Please disregard rx for 30 mg. MIRTAZAPINE 43876176713 Shalonda MARTINEZ FLUOXETINE HCL 20 MG CAPS TAKE ONE CAPSULE BY MOUTH TWICE A DAY FLUOXETINE HCL 78198566623 Shalonda MARTINEZ MEGESTROL ACETATE 20 MG TABS take one tablet by mouth twice a day 0 MEGESTROL ACETATE 54681930842 Emma Nieto RMA PROZAC 20 MG CAPS Take 1 twice a day FLUOXETINE HCL 68668381017 Shalonda MARTINEZ LISINOPRIL 2.5 MG TABS TAKE ONE TABLET BY MOUTH DAILY LISINOPRIL 16838408276 Olga Reena DO KEPPRA 750 MG TABS TAKE ONE TABLET BY MOUTH TWICE A DAY LEVETIRACETAM 77916410912 Kimberly Jean APRN PROZAC 20 MG CAPS TAKE 1 CAPSULE BY MOUTH EVERY MORNINGfor 7 days then increase to 2 daily. FLUOXETINE HCL 16969205386 Shalonda MARTINEZ PAROXETINE HCL 40 MG TABS TAKE 1 TABLET BY MOUTH ONCE A DAY 08/13 PAROXETINE HCL 49689918009 Radha Carr MA MIRTAZAPINE 30 MG TABS Take 1 at bedtime MIRTAZAPINE 47489831557 Shalonda MARTINEZ VITAMIN D 50 MCG (1999 UT) TABS TAKE 1 TABLET BY MOUTH ONCE A DAY CHOLECALCIFEROL 09506748886 Kimberly Jean APRN TIZANIDINE HCL 4 MG CAPS Take 1 tablet by mouth daily 12/12 TIZANIDINE HCL 10615020897 Cain Patel MD BACLOFEN 10 MG TABS TAKE 1 TABLET 2 TIMES DAILY NEEDED FOR MUSCLES 12/12 BACLOFEN 79792711045 Cain Patel MD MIRTAZAPINE 45 MG TABLET TAKE ONE TABLET BY MOUTH EVERY NIGHT AT BEDTIME MIRTAZAPINE 08354127677 Shalonda MARTINEZ KEPPRA 750 MG TABS TAKE ONE TABLET BY MOUTH TWICE A DAY LEVETIRACETAM 57965734936 Kimberly Bishop [place] LISINOPRIL 2.5 MG TABS TAKE ONE TABLET BY MOUTH DAILY LISINOPRIL 30372559325 Kimberly Hurtadobing [place] CARVEDILOL 25 MG TABS TAKE ONE TABLET BY MOUTH TWICE A DAY CARVEDILOL 62953904092 Nabeel Donovan MARISA MEGESTROL ACETATE 20 MG TABS take one tablet by mouth twice a day MEGESTROL ACETATE 84263803294 Shalonda Ankit Karma MARTINEZ TIZANIDINE HCL 4 MG CAPS Take 1 tablet by mouth daily TIZANIDINE HCL 76580997327 Cain Patel MD INDOMETHACIN 25 MG CAPS TAKE 2 TABLETS BY MOUTH EVERY 8 HOURS x 5-7 DAYS NEEDED 07/25 INDOMETHACIN 64859319644 Madina Munoz APRN BACLOFEN 10 MG TABS TAKE 1 TABLET 2 TIMES DAILY NEEDED FOR MUSCLES BACLOFEN 80665909565 Cain Patel MD ASPIR-LOW 81 MG ORAL TABLET DELAYED RELEASE TAKE 1 TABLET BY MOUTH 1 TIME A DAY ASPIRIN 28234358548 Cain Patel MD INDOMETHACIN 25 MG CAPS TAKE 2 TABLETS BY MOUTH EVERY 8 HOURS x 5-7 DAYS NEEDED INDOMETHACIN 25059561166 Madina Munoz APRN CHANTIX CONTINUING MONTH MICHELLE 1 MG ORAL TABLET TAKE 1 TABLET TWICE A DAY 12/01 VARENICLINE TARTRATE [id number] Cristela Teresa APRN KLONOPIN 1 MG TABS TAKE 1 TABLET BY MOUTH 2 TIMES A DAY FOR PANIC/ANXIETY 09/08 CLONAZEPAM [id number] Cristela Teresa APRN REMERON 45 MG ORAL TABLET TAKE 1 TABLET AT BEDTIME MIRTAZAPINE [id number] Shalonda G Karma MARTINEZ KLONOPIN 1 MG TABS TAKE 1 TABLET BY MOUTH 2 TIMES A DAY FOR PANIC/ANXIETY CLONAZEPAM [id number] Cristela Teresa APRN PAROXETINE HCL 40 MG TABS TAKE 1 TABLET BY MOUTH ONCE A DAY 07/09 PAROXETINE HCL [id number] Cristela Brii [place] HYDROXYZINE HCL 25 MG TABS TAKE 1 TABLET BY MOUTH EVERY 8 HOURS NEEDED FOR ANXIETY 07/09 HYDROXYZINE HCL [id number] Cristela Teresa SAFETY AND SECURITY MANAGER PAROXETINE HCL 40 MG TABS TAKE 1 TABLET BY MOUTH ONCE A DAY PAROXETINE HCL [id number] Shalonda Parada ANIMAL GENETICIST CHANTIX STARTING MONTH MICHELLE 0.5 MG X 11 & 1 MG X 42 ORAL TABLET USE DIRECTED 07/18 VARENICLINE TARTRATE [id number] Madina Munoz APRN CHANTIX CONTINUING MONTH MICHELLE 1 MG ORAL TABLET TAKE 1 TABLET TWICE A DAY VARENICLINE TARTRATE 20311126480 Madina Munoz APRN HYDROXYZINE HCL 25 MG TABS TAKE 1 TABLET BY MOUTH EVERY 8 HOURS NEEDED FOR ANXIETY HYDROXYZINE HCL 43783343126 Madina Munoz APRN PANTOPRAZOLE SODIUM 40 MG TBEC TAKE 1 BY MOUTH EACH DAY PANTOPRAZOLE SODIUM 44380017929 Madina Munoz APRN DICLOFENAC SODIUM 75 MG TBEC TAKE 1 TAB BY MOUTH 2 TIMES A DAY NEEDED FOR PAIN DICLOFENAC SODIUM 75222336332 Madina Munoz APRN CIPROFLOXACIN HCL 500 MG TABS TAKE 1 TABLET BY MOUTH 2 TIMES A DAY x 5 days CIPROFLOXACIN HCL 53287377294 Madina Munoz APRN KLONOPIN 1 MG TABS TAKE 1 TABLET BY MOUTH 3 TIMES A DAY FOR PANIC/ANXIETY CLONAZEPAM 34837123877 Cristela Teresa APRN CHANTIX STARTING MONTH MICHELLE 0.5 MG X 11 & 1 MG X 42 ORAL TABLET USE DIRECTED 07/18 VARENICLINE TARTRATE 93204214630 Madina Munoz APRN CHANTIX CONTINUING MONTH MICHELLE 1 MG ORAL TABLET TAKE 1 TABLET TWICE A DAY VARENICLINE TARTRATE 27616558593 Madina Munoz APRN KLONOPIN 1 MG TABS TAKE 1 TABLET BY MOUTH 3 TIMES A DAY FOR PANIC/ANXIETY CLONAZEPAM 71888856353 Cristela Teresa APRN REMERON 30 MG TABS TAKE 1 TABLET BY MOUTH AT BEDTIME MIRTAZAPINE 52612430935 Cristela Teresa APRN KLONOPIN 1 MG TABS TAKE 1 TABLET BY MOUTH 2 TIMES A DAY FOR PANIC/ANXIETY CLONAZEPAM 53850434599 Cristela Teresa SAFETY AND SECURITY MANAGER HYDROXYZINE HCL 25 MG TABS 1 tab by mouth every 8 hours as needed for anxiety. 03/04 HYDROXYZINE HCL 72979974163 Cristela Teresa APRN QUETIAPINE FUMARATE 200 MG TABS ONE PO QHS. 03/04 QUETIAPINE FUMARATE 84382733901 Cristela Teresa APRN KEPPRA 750 MG TABS 1 tab by mouth twice daily LEVETIRACETAM 04949068648 Ye Pringle DO PAROXETINE HCL 40 MG TABS TAKE 1 TABLET BY MOUTH ONCE A DAY PAROXETINE HCL 62298211599 Cristela Teresa APRN PHENYTOIN SODIUM EXTENDED 100 MG CAPS 1 cap by mouth every 8 hours 07/11 PHENYTOIN SODIUM EXTENDED 94966751188 Merlin Hernandez MD ASPIR-LOW 81 MG ORAL TABLET DELAYED RELEASE TAKE 1 TABLET BY MOUTH 1 TIME A DAY ASPIRIN 66527734457 Madina Alexander SAFETY AND SECURITY MANAGER DICLOFENAC SODIUM 75 MG TBEC TAKE 1 TAB BY MOUTH 2 TIMES A DAY NEEDED FOR PAIN DICLOFENAC SODIUM 86568310940 Merlin Hernandez MD HYDROXYZINE HCL 25 MG TABS 1 tab by mouth every 8 hours as needed for anxiety. HYDROXYZINE HCL 50572487160 Merlin Hernandez MD FLUOXETINE HCL 40 MG CAPS 1 cap by mouth daily FLUOXETINE HCL 73965421122 Merlin Hernandez MD TRAZODONE HCL 50 MG TABS 1 tab by mouth nightly as needed for insomnia. 0 TRAZODONE HCL 93301748472 Génesis Sahu RN QUETIAPINE FUMARATE 200 MG TABS ONE PO QHS. QUETIAPINE FUMARATE 30248586348 Merlin Hernandez MD TRAZODONE HCL 50 MG TABS 1 tab by mouth nightly as needed for insomnia. TRAZODONE HCL 80005008897 Merlin Hernandez MD SEROQUEL 200 MG TABS TAKE 1 TABLET BY MOUTH EVERY NIGHT AT BEDTIME QUETIAPINE FUMARATE 30710770635 Merlin Hernandez MD PHENYTOIN SODIUM EXTENDED 100 MG CAPS 1 cap by mouth every 8 hours PHENYTOIN SODIUM EXTENDED 96433092441 Merlin Hernandez MD LISINOPRIL 2.5 MG TABS TAKE 1 TABLET BY MOUTH 1 TIME A DAY LISINOPRIL 77266208088 Ye Pringle DO KEPPRA 750 MG TABS 2 tabs by mouth twice daily LEVETIRACETAM 94932300309 Merlin Hernandez MD PROZAC 20 MG CAPS TAKE 1 BY MOUTH EVERY MORNING FLUOXETINE HCL 23166037373 Merlin Hernandez MD CARVEDILOL 25 MG TABS TAKE 1 TABLET BY MOUTH 2 TIMES A DAY CARVEDILOL 12951914926 Ye Pringle DO ASPIR-LOW 81 MG ORAL TABLET DELAYED RELEASE TAKE 1 TABLET BY MOUTH 1 TIME A DAY ASPIRIN 53230129354 Merlin Hernandez MD PANTOPRAZOLE SODIUM 40 MG TBEC TAKE 1 BY MOUTH EACH DAY PANTOPRAZOLE SODIUM 07975259277 Merlin Hernandez MD CIPROFLOXACIN HCL 500 MG TABS TAKE 1 TABLET BY MOUTH 2 TIMES A DAY x 5 days CIPROFLOXACIN HCL 23805952506 Merlin Hernandez MD PROMETHAZINE HCL 12.5 MG TABS TAKE 1 BY MOUTH EVERY 6 HRS NEEDED FOR NAUSEA/VOMITING 201408/26 PROMETHAZINE HCL 42047541273 Merlin Hernandez MD DICLOFENAC SODIUM 75 MG TBEC TAKE 1 TAB BY MOUTH 2 TIMES A DAY NEEDED FOR PAIN DICLOFENAC SODIUM 55699359581 Madina Munoz APRN Medications Administered No information [...] in Blood ABS NEUTROPH 4729 CELLS/UL 10*3/uL 2580-5880 N Neutrophils [#/volume] in Blood Lab Report: [...] CCC & HP forms LABS ORDERED Accucheck 14784 Laboratory tests ordered BG RANDOM 96 mg/dL Glucose [Mass/volume] in Blood Plan of Care Type Date Detail Referral [facility] Neurology Michael Castellano-Neurology [facility], [address] , [place], [address] Referral Neurology Referr corazon [facility] [place] [facility], [address], [place], [address] Referral Cardiology Gabi Rebeca [facility] [place] [facility] [place], [address], [place], [address] Referral Gastroenterology Referral [facility] G[facility]ology [facility], [address], [place], [address] Pending order Accucheck 76519 Pending order T1 CBC no diff Pending [...] Pending order Uric Acid Pending order SNOMED-CT: 34015 3000 Smoking Cessation Counseling Pending order SNOMED-CT: 78975 [id number] Current Medications Documented Pending order Medication Recon ciliation Pending order 22151 ESTAB efoc /efoc/low Pending order Medication Recon ciliation Pending order SNOMED-CT: 33082 [id number] Current Medications Documented Pending order Urine Drug Scree n w/o Confirmation Pending Order exclud ed from report: Pending order Medication Recon ciliation Pending order 74575 ESTAB efoc /efoc/low Pending order Urine Drug Scree n w/o Confirmation Pending order 02506 ESTAB efoc /efoc/low Pending order 61394 ESTAB efoc /efoc/low Pending order SNOMED-CT: 87814 3000 Smoking Cessation Counseling Pending order SNOMED-CT: 67323 7446341746 Current Medications Documented Pending order 32355 ESTAB efoc /efoc/low Pending order Urine Drug Scree n w/o Confirmation Pending order Psych Dx Eval WI TH E&M -MD/SAFETY AND SECURITY MANAGER Only Pending order SNOMED-CT: 00742 5331340805 Current Medications Documented Pending order Phenytoin (Jamshid [...] Procedures Code Procedure Name Date Entry Date [facility]-[id number] Medication Reconciliation CPT-3075F Most recent systolic blood pressure 130-139 mm Hg CPT-3079F Most recent diastoli c blood pressure 80-89 mm Hg CPT-0513F Elevated blood press ure plan of care documented CPT-1159F Medication list docu mented in medical record CPT-1160F Review of all medica tions by a prescribing practitioner 4004F Patient screened for tobacco use and received tobacco cessation intervention SCT-[id number] Current every day smoker 21/07/15 SCT-[id number] Smoking cessation education SCT-[id number] Medication Reconciliation CPT-3074F Most recent systolic blood pressure <130 mm Hg CPT-3079F Most recent diastoli c blood pressure 80-89 mm Hg CPT-1159F Medication list docu mented in medical record CPT-1160F Review of all medica tions by a prescribing practitioner SCT-393347041 Current every day smoker 19/04/15 4004F Patient screened for tobacco use and received tobacco cessation intervention SCT-810788122 Smoking cessation education [facility] 1759 T1 CBC no diff [facility] 57558 T1 CMP [facility] 496 T1 HGBA1c [facility] 23756 T1 Lipid Panel [facility] 28053 T1 TSH reflex to free T4 10/04/14 78626 Fluzone Quadrivalent CPT-89881 IMADM >18YR IM ROUTE 1ST VAC/TOXOID 04/05 CPT-1159F Medication list docu mented in medical record SCT-[id number] Medication Reconciliation CPT-3075F Most recent systolic blood pressure 130-139 mm Hg CPT-3079F Most recent diastoli c blood pressure 80-89 mm Hg CPT-1159F Medication list docu mented in medical record CPT-1160F Review of all medica tions by a prescribing practitioner 4004F Patient screened for tobacco use and received tobacco cessation intervention SCT-968288400 Current every day smoker 20 17/01/18 SCT-553239385 Smoking cessation education SCT-[id number] Medication Reconciliation CPT-3075F Most recent systolic blood pressure 130-139 mm Hg 4004F Patient screened for tobacco use and received tobacco cessation intervention SCT-[id number] Medication Reconciliation 4004F Patient screened for tobacco use and received tobacco cessation intervention CPT-3077F Most recent systolic blood pressure >=140 mm Hg CPT-1159F Medication list docu mented in medical record CPT-1160F Review of all medica tions by a prescribing practitioner X-Ray Hand Right X-Ray Hand Right [facility] 1759 T1 CBC no diff [facility] 69547 T1 CMP [facility] 496 T1 HGBA1c [facility] 87248 T1 Lipid Panel [facility] 84741 T1 TSH reflex to free T4 10/01/03 [facility] 36840 T2 Vitamin D 25 Hydroxy 2023 4004F Patient screened for tobacco use and received tobacco cessation intervention CPT-3075F Most recent systolic blood pressure 130-139 mm Hg SCT-[id number] Medication Reconciliation SCT-525988290904468 Medication Reconciliation CPT-3074F Most recent systolic blood pressure <130 mm Hg CPT-3078F Most recent diastoli c blood pressure <80 mm Hg SCT-866344973442739 Medication Reconciliation 4004F Patient screened for tobacco use and received tobacco cessation intervention CPT-3074F Most recent systolic blood pressure <130 mm Hg CPT-3078F Most recent diastoli c blood pressure <80 mm Hg SCT-[id number] Medication Reconciliation CPT-3074F Most recent systolic blood pressure <130 mm Hg CPT-3078F Most recent diastoli c blood pressure <80 mm Hg CPT-1159F Medication list docu mented in medical record CPT-1160F Review of all medica tions by a prescribing practitioner [facility] 93162 T1 CMP Other [facility] Other - Patient Pay [facility] 6399 T1 CBC with diff [facility] 91727 T1 TSH reflex to free T4 09/01/23 [facility]-[id number] Medication Reconciliation 4004F Patient screened for tobacco use and received tobacco cessation intervention CPT-3074F Most recent systolic blood pressure <130 mm Hg CPT-3079F Most recent diastoli c blood pressure 80-89 mm Hg Other [facility] Other - Patient Pay 4004F Patient screened for tobacco use and received tobacco cessation intervention SCT-[id number] Medication Reconciliation CPT-3074F Most recent systolic blood pressure <130 mm Hg CPT-3078F Most recent diastoli c blood pressure <80 mm Hg CPT-1159F Medication list docu mented in medical record CPT-1160F Review of all medica tions by a prescribing practitioner [facility] 6399 T1 CBC with diff [facility] 927 T1 B12 [facility] 91397 T1 CMP [facility] 496 T1 HGBA1c [facility] 37364 T1 Lipid Panel [facility] 71813 T1 TSH reflex to free T4 08/29/23 [facility] 25153 T2 Vitamin D 25 Hydroxy 2022 4004F Patient screened for tobacco use and received tobacco cessation intervention CPT-3075F Most recent systolic blood pressure 130-139 mm Hg CPT-3079F Most recent diastoli c blood pressure 80-89 mm Hg SCT-[id number] Medication Reconciliation SCT-494200037777406 Medication Reconciliation CPT-88069 Pfizer COVID-19 Saran -sucrose 30 mcg/0.3 mL Booster (servin cap >=12 y) CPT-0054A Pfizer COVID-19 Saran -sucrose Booster Immunization admin CPT-3074F Most recent systolic blood pressure <130 mm Hg CPT-3079F Most recent diastoli c blood pressure 80-89 mm Hg SCT-470962730191941 Medication Reconciliation 87420 Fluzone Quadrivalent CPT-67805 IMADM >18YR IM ROUTE 1ST VAC/TOXOID 04/12 CPT II 4004F Patient screened for tobacco use and received tobacco cessation intervention SCT-025028023654291 Medication Reconciliation CPT-3074F Most recent systolic blood pressure <130 mm Hg CPT-3079F Most recent diastoli c blood pressure 80-89 mm Hg CPT-1159F Medication list docu mented in medical record CPT-1160F Review of all medica tions by a prescribing practitioner [facility]-[id number] Medication Reconciliation CPT II 4004F Patient screened [...] diastoli c blood pressure 80-89 mm Hg SCT-[id number] Medication Reconciliation CPT II 4004F Patient screened for tobacco use and received tobacco cessation intervention CPT-3074F Most recent systolic blood pressure <130 mm Hg CPT-3079F Most recent diastoli c blood pressure 80-89 mm Hg CPT-1159F Medication list docu mented in medical record CPT-1160F Review of all medica tions by a prescribing practitioner [facility] 6399 T1 CBC with diff [facility] 00483 T1 CMP [facility] 86344 T1 TSH reflex to free T4 07/31/25 [facility] 28332 T1 Lipid Panel [facility] 84513 T2 Vitamin D 25 Dihydroxy 20 16/10/25 SCT-[id number] Medication Reconciliation SCT-866906163610264 Medication Reconciliation 41869 Fluzone Quadrivalent CPT-60322 IMADM >18YR IM ROUTE 1ST VAC/TOXOID 04/21 CPT-3074F Most recent systolic blood pressure <130 mm Hg CPT-3078F Most recent diastoli c blood pressure <80 mm Hg SCT-025241451999331 Medication Reconciliation CPT-3075F Most recent systolic blood pressure 130-139 mm Hg CPT-3077F Most recent systolic blood pressure >=140 mm Hg CPT-3078F Most recent diastoli c blood pressure <80 mm Hg SCT-123616580634722 Medication Reconciliation [facility] 6399 T1 CBC with diff [facility] 02821 T1 CMP [facility] 496 T1 HGBA1c [facility] 09044 T1 Lipid Panel [facility] 32570 T1 TSH reflex to free T4 06/30/26 CPT-3075F Most recent systolic blood pressure 130-139 mm Hg CPT-3079F Most recent diastoli c blood pressure 80-89 mm Hg CPT-1159F Medication list docu mented in medical record CPT-3075F Most recent systolic blood pressure 130-139 mm Hg CPT-3075F Most recent systolic blood pressure 130-139 mm Hg SCT-915796239391090 Medication Reconciliation SCT-622768445773632 Medication Reconciliation CPT-3075F Most recent systolic blood pressure 130-139 mm Hg CPT-3079F Most recent diastoli c blood pressure 80-89 mm Hg 29714 Flulaval Quadrivalent CPT-61929 IMADM >18YR IM ROUTE 1ST VAC/TOXOID 04/22 CPT-1159F Medication list docu mented in medical record CPT-1160F Review of all medica tions by a prescribing practitioner CPT-3077F Most recent systolic blood pressure >=140 mm Hg SCT-436729235123666 Medication Reconciliation SCT-639015093860884 Medication Reconciliation [facility] 6399 T1 CBC with diff [facility] 38629 T1 CMP [facility] 02764 T1 Lipid Panel [facility] 08835 T1 TSH reflex to free T4 202 [facility] 10123 T2 HGB Electrophoresis 10/24 [facility] 99297 T2 Vitamin D 25 Dihydroxy 20 14/10/29 SCT-289818316050605 Medication Reconciliation CPT-3077F Most recent systolic blood pressure >=140 mm Hg CPT-3078F Most recent diastoli c blood pressure <80 mm Hg CPT-3075F Most recent systolic blood pressure 130-139 mm Hg SCT-011466469134532 Medication Reconciliation CPT-23419 Fluzone Quadrivalent Preservative Free prefilled syringe (36 mos +) CPT-32292 IMADM >18YR IM ROUTE 1ST VAC/TOXOID 04/13 [facility] 39495 T2 Vitamin D 25 Hydroxy 2018 SCT-417675223113616 Medication Reconciliation CPT-43704 Venipuncture 20736 4 CPT-3077F Most recent systolic blood pressure >=140 mm Hg SCT-780879551 SNOMED-CT: 918250220 Smoking Cessation Counseling SCT-166000289085042 SNOMED-CT: 973724429 131551 Current Medications Documented [facility] 64261 T1 CMP CPT-3077F Most recent systolic blood pressure >=140 mm Hg SCT-831890434920177 Medication Reconciliation SCT-500164312378178 Medication Reconciliation CPT-3075F Most recent systolic blood pressure 130-139 mm Hg CPT-3078F Most recent diastoli c blood pressure <80 mm Hg CPT-3074F Most recent systolic blood pressure <130 mm Hg CPT-3079F Most recent diastoli c blood pressure 80-89 mm Hg CPT-3077F Most recent systolic blood pressure >=140 mm Hg SCT-396302813124328 Medication Reconciliation SCT-063570744632143 Medication Reconciliation CPT-3075F Most recent systolic blood pressure 130-139 mm Hg SCT-989853518628131 Medication Reconciliation CPT-94436 Fluzone Quadrivalent Preservative Free prefilled syringe (36 mos +) CPT-62283 IMADM >18YR IM ROUTE 1ST VAC/TOXOID 06/12 CPT-3075F Most recent systolic blood pressure 130-139 mm Hg CPT-3079F Most recent diastoli c blood pressure 80-89 mm Hg CPT-3074F Most recent systolic blood pressure <130 mm Hg CPT-3074F Most recent systolic blood pressure <130 mm Hg SCT-169204502062032 Medication Reconciliation SCT-581027858644161 Medication Reconciliation CPT-3074F Most recent systolic blood pressure <130 mm Hg CPT-3079F Most recent diastoli c blood pressure 80-89 mm Hg CPT-3074F Most recent systolic blood pressure <130 mm Hg CPT-3079F Most recent diastoli c blood pressure 80-89 mm Hg SCT-029496495718816 Medication Reconciliation CPT-3075F Most recent systolic blood pressure 130-139 mm Hg CPT-3079F Most recent diastoli c blood pressure 80-89 mm Hg SCT-946137102938545 Medication Reconciliation [facility] 6399 T1 CBC with diff [facility] 12467 T1 CMP [facility] 68188 T1 Lipid Panel [facility] 46199 T2 Vitamin D 25 Hydroxy 2017 CPT-3074F Most recent systolic blood pressure <130 mm Hg CPT-3078F Most recent diastoli c blood pressure <80 mm Hg SCT-978905003509975 Medication Reconciliation SCT-222772181070464 Medication Reconciliation CPT-3074F Most recent systolic blood pressure <130 mm Hg CPT-3078F Most recent diastoli c blood pressure <80 mm Hg CPT-3074F Most recent systolic blood pressure <130 mm Hg CPT-3079F Most recent diastoli c blood pressure 80-89 mm Hg SCT-629817515845015 Medication Reconciliation SCT-807306035523582 Medication Reconciliation CPT-3074F Most recent systolic blood pressure <130 mm Hg CPT-3079F Most recent diastoli c blood pressure 80-89 mm Hg SCT-279752671450757 Medication Reconciliation SCT-032017550051966 Medication Reconciliation SCT-510413110729430 Medication Reconciliation SCT-892691620719713 SNOMED-CT: 775553681 957260 Current Medications Documented CPT-62717 Fluzone Quadrivalent Preservative Free Intramuscular Suspension 0.5 ML CPT-29831 IMADM >18YR IM ROUTE 1ST VAC/TOXOID 05/25 01054 [facility] Test # BMP 9 83461 [facility] Test # Hepatitic Function Panel 64398 [facility] # Lipid Panel 9 SCT-504158237 Giving encouragement to exercise SCT-183126779 Lifestyle education regarding diet 03/25 SCT-423799235473890 Medication Reconciliation SCT-350653947883940 Medication Reconciliation SCT-726389865 SNOMED-CT: 361926108 Smoking Cessation Counseling SCT-184736336332354 SNOMED-CT: 693396996 972203 Current Medications Documented X-Ray Foot X-Ray Foot 905 [facility] # Uric Acid SCT-855553828965793 Medication Reconciliation SCT-633045630821307 Medication Reconciliation SCT-536190284249131 SNOMED-CT: 961139866 081105 Current Medications Documented 96742 [facility] Test # Urine Drug Screen w/o Confirmation SCT-291114178699303 Medication Reconciliation SCT-000678271 SNOMED-CT: 460997174 Smoking Cessation Counseling SCT-410085333169032 SNOMED-CT: 192320039 130571 Current Medications Documented 53236 [facility] Test # Urine Drug Screen w/o Confirmation CPT-52424 Psych Dx Eval WITH E&M -/MARISA Only 2014 SCT-154417140020212 SNOMED-CT: 056740876 193223 Current Medications Documented 927 [facility] Test # B12 466 [facility] # Folic Acid 713 [facility] # Phenytoin (Dilantin) 201 10/04/05 Other [facility] Other 6399 [facility] # CBC with diff 6 56965 [facility] # BMP 6 71709 [facility] # Hepatitic Function Panel 496 [facility] # HGBA1c 17182 [facility] # Lipid Panel 6 54489 [facility] # TSH reflex to free T4 SEP NEURO [facility] Neurology Referral S EP Neurology [place] C[facility] Phys [facility] & Vascular [place] [facility] [facility] Gastroenterology Re [facility] ct abd pel w edg CT Abdomen and Pelvis w contrast 2013 ECHO ECHO 6399 [facility] Test # CBC with diff 7 34693 [facility] # BMP 7 68874 [facility] # Hepatitic Function Panel 43228 [facility] # Acute Hepatits Panel 2 63857 [facility] # HIV Antibody -consent required 2013 8847 [facility] Test # Protime INR 29758 [facility] Test # TSH reflex to free [...]
== END 2025-04-02 23:59 | disposition home or self-care (01) ==
LOC: RAD 14:20
PROVIDERS: Visit Provider Podiatrist
DX: M20.41 Other hammer toe(s) (acquired), right foot (principal); M20.42 Other hammer toe(s) (acquired), left foot
CPT/HCPCS: 73630

== ENCOUNTER → 2025-05-09 08:06 | Day surgery (SDC) | payer MEDICAID, SELFPAY ==
[2025-05-09 08:20] VITALS: BMI 19.7
[2025-05-09 08:24] VITALS: BP 102/60; PULSE 65; RESP 18; TEMP 36.4; O2SAT 99
--- NOTE | 2025-05-09 10:33 | SUR.PREOP ---
procedure cancelled due to pt needing cardiac clearance. appointment made with [facility] cardiology for 05/20/25. [facility] made aware and verbalized understanding.
== END ==
LOC: OR 08:07
PROVIDERS: PCP Nurse Practitioner Family; Visit Provider Dentist General Practice
DX: Z01.810 Encounter for preprocedural cardiovascular examination (principal)

== ENCOUNTER 2025-05-27 09:39 | Outpatient (CLI) | payer MEDICAID, SELFPAY ==
--- OUTSIDE RECORDS SUMMARY | 2025-05-27 09:42 | XMS_ITS | Clinical Summary ---
Author Organization [facility] Address [address] [place] [phone] Phone Care Team Providers Care Team Cdl Driver Name Role Phone Lucrecia Lozano Primary Care Physician [phone] Conditions or Problems Problem Name Problem Code Onset Date Status Entry Date Provider Comment Standard Description Annotate Body mass index (BMI) 20.0-20.9; adult Z68.20 (ICD-10-CM ) 07/12 Active 07/13 [facility] Body mass index [BMI] 20.0-20.9, adult Body mass index (BMI) 19 or less; adult Z68.1 (ICD-10-CM ) 01/11 Correction 01/20 [facility] Body mass index [BMI] 19.9 or less, adult Counseling for nutrition Z71.3 (ICD-10-CM ) 01/11 Inactive 01/20 [facility] Dietary counseling and surveillance Body mass index (BMI) 19 or less; adult Z68.1 (ICD-10-CM ) 01/11 Removed 01/20 [facility] Body mass index [BMI] 19.9 or less, adult Counseling for nutrition Z71.3 (ICD-10-CM ) 01/11 Inactive 01/20 [facility] Dietary counseling and surveillance Body mass index (BMI) 19 or less; adult Z68.1 (ICD-10-CM ) Correction [facility] Body mass index [BMI] 19.9 or less, adult Counseling for nutrition Z71.3 (ICD-10-CM ) 12/12 Inactive 12/12 [facility] 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 Dietary counseling and surveillance Unspecified superficial injury of right ring finger, sequela 738646476 (SNOMED CT) 11/28 Active 11/28 [facility] 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 Superficial injury of finger Counseling for nutrition Z71.3 (ICD-10-CM ) 11/28 Inactive 11/28 [facility] 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 Dietary counseling and surveillance Counseling for nutrition Z71.3 (ICD-10-CM ) Inactive [place] [facility] Dietary counseling and surveillance Body mass index (BMI) 19 or less; adult Z68.1 (ICD-10-CM ) Removed Lucrecia Madison PMHNP Body mass index [BMI] 19.9 or less, adult Body mass index (BMI) 21.0-21.9; adult Z68.21 (ICD-10-CM ) 10/25 Correction 10/26 Lucrecia Selwyn PMHNP Body mass index [BMI] 21.0-21.9, adult Decreased body mass index 1063350 (SNOMED CT) 02/15 Correction 02/15 [place] PMHNP Decreased body mass index Weight loss 67126355 (SNOMED CT) 02/15 Active 02/15 Olga Reena DO Weight loss Decreased body mass index 8891322 (SNOMED CT) 02/15 Removed 02/15 Olga Reena DO Decreased body mass index Counseling for nutrition Z71.3 (ICD-10-CM ) 01/20 Inactive 01/20 [place] Sel[place] PMHNP Dietary counseling and surveillance Body mass index (BMI) 21.0-21.9; adult Z68.21 (ICD-10-CM ) 10/25 Removed 10/26 [place] Madison PMHNP Body mass index [BMI] 21.0-21.9, adult Body mass index (BMI) 21.0-21.9; adult Z68.21 (ICD-10-CM ) 10/18 Correction 10/18 Lucrecia Samano PMHNP Body mass index [BMI] 21.0-21.9, adult Substance Abuse 19564119 (SNOMED CT) 10/26 Active 10/26 [facility]stance abuse Depression 85736541 (SNOMED CT) 10/26 Active 10/26 [place] Samano HN Depressive disorder Anxiety Disorder 200050888 (SNOMED CT) 10/26 Active 10/26 Lucrecia Samano [facility] Anxiety disorder Body mass index (BMI) 21.0-21.9; [...] mass index [BMI] 22.0-22.9, adult Weight loss 70796217 (SNOMED CT) 10/18 Active 10/18 Olga Reena DO Weight loss Counseling for nutrition Z71.3 (ICD-10-CM ) 07/26 Inactive 07/26 Shalonda Parada [facility] Dietary counseling and surveillance Body mass index (BMI) 22.0-22.9; adult Z68.22 (ICD-10-CM ) 07/26 Removed 07/26 Shalonda Ankit Randolphon [employer] Body mass index [BMI] 22.0-22.9, adult Body mass index (BMI) 23.0-23.9; adult Z68.23 (ICD-10-CM ) Correction Shalonda Ankit Randolphon [employer] Body mass index [BMI] 23.0-23.9, adult Body mass index (BMI) 23.0-23.9; adult Z68.23 (ICD-10-CM ) Removed Olga Reena DO Body mass index [BMI] 23.0-23.9, adult Body mass index (BMI) 21.0-21.9; adult Z68.21 (ICD-10-CM ) Correction Olga Reena DO Body mass index [BMI] 21.0-21.9, adult Counseling for nutrition Z71.3 (ICD-10-CM ) Inactive Shalonda Ankit Randolphon [employer] Dietary counseling and surveillance Body mass index (BMI) 21.0-21.9; adult Z68.21 (ICD-10-CM ) Removed Shalonda Ankit Randolphon [employer] Body mass index [BMI] 21.0-21.9, adult Body mass index (BMI) 23.0-23.9; adult Z68.23 (ICD-10-CM ) 01/18 Correction 01/18 Shalonda G Karma [employer] Body mass index [BMI] 23.0-23.9, adult Body mass index (BMI) 23.0-23.9; adult Z68.23 (ICD-10-CM ) 01/18 Removed 01/18 Shalonda G Holloway [employer] Body mass index [BMI] 23.0-23.9, adult Counseling [...] DO Dietary counseling and surveillance Tobacco User 460132961 (SNOMED CT) 10/20 Active 10/20 Olga Reena [...] (ICD-10-CM ) 03/06 Inactive 03/06 Shalonda G Karma [employer] Dietary counseling and surveillance Body mass index (BMI) 21.0-21.9; adult Z68.21 (ICD-10-CM ) 03/06 Removed 03/06 Shalonda G Karma [employer] Body mass index [BMI] 21.0-21.9, adult Body mass index (BMI) 22.0-22.9; adult Z68.22 (ICD-10-CM ) 11/28 Correction 11/28 Shalonda G Karma [employer] Body mass index [BMI] 22.0-22.9, adult Counseling for nutrition Z71.3 (ICD-10-CM ) 11/28 Inactive 11/28 Shalonda G Holloway [employer] Dietary counseling and surveillance Body mass index (BMI) 22.0-22.9; adult Z68.22 (ICD-10-CM ) 11/28 Removed 11/28 Shalonda G Karma [employer] Body mass index [BMI] 22.0-22.9, adult Body mass index (BMI) 22.0-22.9; adult Z68.22 (ICD-10-CM ) 10/21 Correction 10/21 Shalonda G Holloway [employer] Body mass index [BMI] 22.0-22.9, adult Body mass index (BMI) 22.0-22.9; adult Z68.22 (ICD-10-CM ) 10/21 Removed 10/21 Olga Reena DO Body mass index [BMI] 22.0-22.9, adult Marijuana abuse 95884011 (SNOMED CT) 10/21 Active 10/21 Olga Reena DO Harmful pattern of use of Cannabis Alcohol use 673028 (SNOMED CT) 10/21 Active 10/21 Olga Reena [...] index [BMI] 23.0-23.9, adult Influenza vaccination given 918998649 (SNOMED CT) Active Nabeel Donovan 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 Medication given Body mass index (BMI) 23.0-23.9; adult Z68.23 (ICD-10-CM ) Removed Shaila Lopez MA Body mass index [BMI] 23.0-23.9, adult Body mass index (BMI) 21.0-21.9; adult Z68.21 (ICD-10-CM ) 02/07 Correction 02/07 Shaila Martinezra [facility] Body mass index [BMI] 21.0-21.9, adult Counseling for nutrition Z71.3 (ICD-10-CM ) 02/07 Inactive 02/07 Shalonda Ankit Parada [employer] Dietary counseling and surveillance Body mass index (BMI) 21.0-21.9; adult Z68.21 (ICD-10-CM ) 02/07 Removed 02/07 Shalonda G Karma [employer] Body mass index [BMI] 21.0-21.9, adult Body mass index (BMI) 21.0-21.9; adult Z68.21 (ICD-10-CM ) 10/24 Correction 10/24 Shalonda Ankit Parada [employer] Body mass index [BMI] 21.0-21.9, adult Body [...] (ICD-10-CM ) 08/02 Removed 08/02 Shalonda G Holloway [employer] Body mass index [BMI] 24.0-24.9, adult Counseling for nutrition Z71.3 (ICD-10-CM ) 08/02 Inactive 08/02 Shalonda G Karma [employer] Dietary counseling and surveillance Body mass index (BMI) 25.0-25.9; adult Z68.25 (ICD-10-CM ) Correction Shalonda G Karma [employer] Body mass index [BMI] 25.0-25.9, adult Flu vaccine 29508532 (SNOMED CT) Inactive Esteban Coombs RN Administration [...] (ICD-10-CM ) 03/02 Inactive 03/02 Shalonda G Holloway [employer] Dietary counseling and surveillance Body mass index (BMI) 25.0-25.9; adult Z68.25 (ICD-10-CM ) 03/02 Removed 03/02 Shalonda G Karma [employer] Body mass index [BMI] 25.0-25.9, adult Body mass index (BMI) 25.0-25.9; adult Z68.25 (ICD-10-CM ) 11/03 Correction 11/03 Shalonda G Karma [employer] Body mass index [BMI] 25.0-25.9, adult Counseling for nutrition Z71.3 (ICD-10-CM ) 11/03 Inactive 11/03 Shalonda G Holloway [employer] Dietary counseling and surveillance Body mass index (BMI) 25.0-25.9; adult Z68.25 (ICD-10-CM ) 11/03 Removed 11/03 Shalonda G Holloway [employer] Body mass index [BMI] 25.0-25.9, adult Body mass index (BMI) 25.0-25.9; adult Z68.25 (ICD-10-CM ) 10/09 Correction 10/09 Shalonda G Holloway [employer] Body mass index [BMI] 25.0-25.9, adult Depression 86520644 (SNOMED CT) 11/03 Active 11/03 Shalonda G Karma [employer] Depressive disorder Body mass index (BMI) 25.0-25.9; adult Z68.25 (ICD-10-CM ) 10/09 Removed 10/09 Ye Pringle DO Body mass index [BMI] 25.0-25.9, adult Body mass index (BMI) 28.0-28.9; adult Z68.28 (ICD-10-CM ) 08/14 Correction 08/14 Ye Pringle DO Body mass index [BMI] 28.0-28.9, adult Hypertensio n 30131018 (SNOMED CT) 10/09 Active 10/09 Ye Pringle DO Hypertensive disorder Counseling for nutrition Z71.3 (ICD-10-CM ) 08/14 Inactive 08/14 Shalonda G Karma [employer] Dietary counseling and surveillance Body mass index (BMI) 28.0-28.9; adult Z68.28 (ICD-10-CM ) 08/14 Removed 08/14 Shalonda G Karma [employer] Body mass index [BMI] 28.0-28.9, adult Body mass index (BMI) 26.0-26.9; adult Z68.26 (ICD-10-CM ) 08/13 Correction 08/13 Shalonda G Holloway [employer] Body mass index [BMI] 26.0-26.9, adult Counseling for nutrition Z71.3 (ICD-10-CM ) 07/10 Inactive 07/10 Kimberly Jean APRN Dietary counseling and surveillance Counseling for nutrition Z71.3 (ICD-10-CM ) 08/13 Inactive 08/13 Shalonda G Holloway [employer] Dietary counseling and surveillance Body mass index (BMI) 26.0-26.9; adult Z68.26 (ICD-10-CM ) 08/13 Removed 08/13 Shalonda G Karma [employer] Body mass index [BMI] 26.0-26.9, adult Body mass index (BMI) 23.0-23.9; adult Z68.23 (ICD-10-CM ) 03/20 Correction 03/20 Shalonda G Karma [employer] Body mass index [BMI] 23.0-23.9, adult Counseling for nutrition Z71.3 (ICD-10-CM ) 03/20 Inactive 03/20 Shalonda G Karma [employer] Dietary counseling and surveillance Body mass index (BMI) 23.0-23.9; adult Z68.23 (ICD-10-CM ) 03/20 Removed 03/20 Shalonda G Holloway [employer] Body mass index [BMI] 23.0-23.9, adult Body mass index (BMI) 24.0-24.9; adult Z68.24 (ICD-10-CM ) 12/19 Correction 12/19 Shalonda G Karma [employer] Body mass index [BMI] 24.0-24.9, adult Counseling for nutrition Z71.3 (ICD-10-CM ) 12/19 Inactive 12/19 Shalonda G Holloway [employer] Dietary counseling and surveillance Body mass index (BMI) 24.0-24.9; adult Z68.24 (ICD-10-CM ) 12/19 Removed 12/19 Shalonda G Holloway [employer] Body mass index [BMI] 24.0-24.9, adult Body mass index (BMI) 24.0-24.9; adult Z68.24 (ICD-10-CM ) 12/12 Correction 12/12 Shalonda Ankit Karma [employer] Body mass index [BMI] 24.0-24.9, adult Vitamin D deficiency 72247730 (SNOMED CT) 12/12 Active 12/12 Cain Patel MD Vitamin D deficiency Body mass index (BMI) 24.0-24.9; adult Z68.24 (ICD-10-CM ) 12/12 Removed 12/12 Cani Patel MD Body mass index [BMI] 24.0-24.9, [...] ) 08/16 Removed 08/16 Shalonda Ankit Randolphon [employer] Body mass index [BMI] 21.0-21.9, adult Body mass index (BMI) 20.0-20.9; adult Z68.20 (ICD-10-CM ) 08/16 Correction 08/16 Shalonda Ankit Randolphon [employer] Body mass index [BMI] 20.0-20.9, adult Body mass index (BMI) 20.0-20.9; adult Z68.20 (ICD-10-CM ) 08/16 Removed 08/16 Ladonna Kwok MD Body mass index [BMI] 20.0-20.9, adult Physical exam 1418984 (SNOMED CT) 08/16 Inactive 08/16 Ladonna Kwok MD Physical examination Counseling for nutrition Z71.3 (ICD-10-CM ) 08/16 Inactive 08/16 Ladonna Kwok MD Dietary counseling and surveillance Body mass index (BMI) 20.0-20.9; adult Z68.20 (ICD-10-CM ) 07/02 Correction 07/02 Ladonna Kwok MD Body mass index [BMI] 20.0-20.9, adult Counseling for nutrition Z71.3 (ICD-10-CM ) 07/02 Inactive 07/02 Shalonda Randolphon [employer] Dietary counseling and surveillance Body mass index (BMI) 20.0-20.9; adult Z68.20 (ICD-10-CM ) 07/02 Removed 07/02 Shalonda G Holloway [employer] Body mass index [BMI] 20.0-20.9, adult Body mass index (BMI) 21.0-21.9; adult Z68.21 (ICD-10-CM ) 12/24 Correction 12/24 Shalonda G Holloway [employer] Body mass index [BMI] 21.0-21.9, adult Body mass index (BMI) 21.0-21.9; adult Z68.21 (ICD-10-CM ) 12/24 Removed 12/24 Alva Dee APRN Body mass index [BMI] 21.0-21.9, adult Body mass index (BMI) 21.0-21.9; adult Z68.21 (ICD-10-CM ) 12/06 Correction 12/06 Alva Dee APRN Body mass index [BMI] 21.0-21.9, adult Counseling for nutrition Z71.3 (ICD-10-CM ) 12/06 Inactive 12/06 Shalonda G Karma [employer] Dietary counseling and surveillance Body mass index (BMI) 21.0-21.9; adult Z68.21 (ICD-10-CM ) 12/06 Removed 12/06 Shalonda MARTINEZ Body mass index [BMI] 21.0-21.9, adult Acute gouty arthropathy - ? OF 337815486 (SNOMED CT) 12/10 Resolved 12/10 Madina Munoz APRN Gouty arthropathy Acute gouty arthropathy - ? OF 977508013 (SNOMED CT) 12/10 Removed 12/10 Madina Munoz APRN Gouty arthropathy Seizure disorder 506005367 (SNOMED CT) Active Madina Munoz APRN Seizure disorder Myocardial infarction, anterior wall - HX OF 66089629 (SNOMED CT) Active Madina Munoz APRN Myocardial infarction Hx of CVA - R HEMIPARESIS 546535195 (SNOMED CT) Active Madina Munoz APRN History of cerebrovascular accident Other and unspecified mitral valve diseases 46673062 (SNOMED CT) Active Madina Munoz APRN Mitral valve disorder ELEVATED BP READING WITHOUT DX HYPERTENSIO N R03.0 (ICD-10-CM ) 07/19 Resolved 07/19 Madina Munoz APRN Elevated blood-pressure reading, without diagnosis of hypertension KNEE PAIN, RIGHT 65628411 (SNOMED CT) 08/03 Resolved 08/03 Madina Munoz APRN Knee pain ABDOMINAL PAIN 60858828 (SNOMED CT) 08/23 Resolved 08/23 Madina Munoz APRN Abdominal pain DIARRHEA 72443337 (SNOMED CT) 08/23 Resolved 08/23 Madina Munoz APRN Diarrhea Cardiomyopa thy 31250298 (SNOMED CT) 08/23 Active 08/23 Madina Munoz APRN Cardiomyopathy Drug abuse, hx of 341081198 (SNOMED CT) 08/23 Active 08/23 Madina Munoz APRN History of drug abuse ENCOUNTERS UNSPECIFIED ADMINISTRAT HAIDER PURPOSE Z02.89 (ICD-10-CM ) 02/06 Resolved 02/06 Madina Munoz APRN Encounter for other administrative examinations Tobacco abuse 67222251 (SNOMED CT) Active Madina Munoz APRN Tobacco dependence syndrome Anxiety 950477754 (SNOMED CT) Active Merlin Hernandez MD Anxiety disorder ENCOUNTERS UNSPECIFIED ADMINISTRAT HAIDER PURPOSE Z02.89 (ICD-10-CM ) 02/06 Removed 02/06 Merlin Hernandez MD Encounter for other administrative examinations 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/06 Active 02/06 Merlin Hernandez MD Anoxic encephalopathy DRUG ABUSE 58432444 (SNOMED CT) 08/23 Inactive 08/23 Merlin Hernandez MD Drug abuse HEART MURMUR, SYSTOLIC 83066749 (SNOMED CT) 08/23 Inactive 08/23 Merlin Hernandez MD Systolic murmur DIARRHEA 50026518 (SNOMED CT) 08/23 Removed 08/23 Merlin Hernandez MD Diarrhea ABDOMINAL PAIN 75872170 (SNOMED CT) 08/23 Removed 08/23 Merlin Hernandez MD Abdominal pain KNEE PAIN, RIGHT 38791829 (SNOMED CT) 08/03 Removed 08/03 Madina Munoz APRN Knee pain CERVICAL MUSCLE STRAIN 040270973 (SNOMED CT) 07/19 Resolved 07/19 Madina Munoz APRN Strain of neck muscle CERVICAL MUSCLE STRAIN 595272068 (SNOMED CT) 07/19 Removed 07/19 Madina Munoz [...] for 10 days for DENTAL PAIN. ibuprofen 41220800108 Gisell Diana on DMD RA VITAMIN C 250 MG TABS Take 1 tablet by mouth single dose ascorbic acid (vitamin c) 67330502475 [facility] 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 LISINOPRIL 10 MG TABS Take 1 tablet by mouth once a day TAKE ONE TABLET BY MOUTH DAILY lisinopril 95083006399 [facility] 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 OMEPRAZOLE 20 MG CPDR Take 1 capsule by mouth once a day 11/28 omeprazole 83048964654 [facility] 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 CARVEDILOL 25 MG TABS Take 1 tablet by mouth twice a day TAKE ONE TABLET BY MOUTH TWICE A DAY carvedilol 37251496873 [facility] 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 ASPIRIN LOW DOSE 81 MG TBEC Take 1 tablet by mouth once a day aspirin 66825060326 [facility] 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 FLUOXETINE HCL 20 MG CAPS Take 1 capsule by mouth once a day 08/21 fluoxetine 17836533623 Lucrecia Samano PMHNP MIRTAZAPINE 45 MG TABS Take 1 tablet by mouth at bedtime mirtazapine 93219103293 Lucrecia Samano PMHNP FLUOXETINE HCL 20 MG CAPS Take 1 capsule by mouth once a day 07/19 fluoxetine 91216461785 [place] Sam[place] PMHNP MIRTAZAPINE 45 MG TABS TAKE ONE TABLET BY MOUTH AT BEDTIME mirtazapine 10927719682 Lucrecia Samano PMHNP OMEPRAZOLE 20 MG CPDR Take 1 capsule by mouth once a day omeprazole 27018631062 Olga Reena DO LISINOPRIL 2.5 MG TABS TAKE ONE TABLET BY MOUTH DAILY lisinopril 74621678162 Olga Reena DO MIRTAZAPINE 45 MG TABS Take 1 tablet by mouth at bedtime 01/14 mirtazapine 86724737201 Nona Hayes 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 BCADM MIRTAZAPINE 45 MG TABS TAKE ONE TABLET BY MOUTH AT BEDTIME mirtazapine 02934769769 [facility]ciabandar Samano PMHNP MIRTAZAPINE 45 MG TABS Take 1 tablet by mouth at bedtime mirtazapine 97559109733 Lucrecia Samano PMHNP FLUOXETINE HCL 20 MG CAPS Take 1 capsule by mouth once a day fluoxetine 57081918782 Lucrecia Samano PMHNP LISINOPRIL 2.5 MG TABS TAKE ONE TABLET BY MOUTH DAILY lisinopril 82345187104 Olga Reena DO FLUOXETINE HCL 20 MG CAPS Take 1 capsule by mouth once a day 01/21 fluoxetine 97843638294 Shalonda Parada [employer] LISINOPRIL 2.5 MG TABS Take 1 tablet by mouth once a day 08/24 lisinopril 23164261462 Diana Ny 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 LISINOPRIL 2.5 MG TABS TAKE ONE TABLET BY MOUTH DAILY lisinopril 36832417051 Olga Reena DO LISINOPRIL 2.5 MG TABS Take 1 tablet by mouth once a day lisinopril 05664243246 Olga Reena DO LISINOPRIL 2.5 MG TABS Take 1 tablet by mouth once a day lisinopril 69156010968 Clara Ishan [place] FLUOXETINE HCL 20 MG CAPS Take 1 capsule by mouth once a day 10/09 fluoxetine 52173138851 Shalonda Parada [employer] FLUOXETINE HCL 20 MG CAPS Take 1 capsule by mouth once a day 07/17 fluoxetine 70163428537 Shalonda Parada [employer] MIRTAZAPINE 45 MG TABS Take 1 tablet by mouth at bedtime mirtazapine 63000094847 Shalonda Parada [employer] LISINOPRIL 2.5 MG TABS Take 1 tablet by mouth once a day lisinopril 47932849112 Alva Benjamin APRN MIRTAZAPINE 45 MG TABS Take 1 tablet by mouth every night 01/15 mirtazapine 23726226604 Nirav Carvalho MD BUSPIRONE HCL 5 MG TABS Take 1 tablet by mouth twice a day for anxiety 12/16 buspirone 19866676834 Nirav Carvalho MD MIRTAZAPINE 45 MG TABS 11/18 mirtazapine 78316890836 Emily Joel MA MIRTAZAPINE 45 MG TABS Take 1 tablet by mouth every night 12/18 mirtazapine 86545625119 Nirav Carvalho MD BUSPIRONE HCL 5 MG TABS Take 1 tablet by mouth twice a day for anxiety 12/18 buspirone 30544457789 Nirav Carvalho MD MIRTAZAPINE 45 MG TABS mirtazapine 87813739815 Emily Joel MA FLUOXETINE HCL 20 MG CAPS Take 1 capsule by mouth twice a day fluoxetine 10106671243 Olga Reena DO CARVEDILOL 25 MG TABS Take 1 tablet by mouth twice a day TAKE ONE TABLET BY MOUTH TWICE A DAY carvedilol 50783427046 Olga Reena DO ASPIRIN EC 81 MG TBEC Take 1 tablet by mouth once a day aspirin 52218467674 Olga Reena DO calcium citrate-vitamin D3 250 mg-5 mcg (200 unit) tablet Take 1 tablet by mouth once a day 10/20 calcium citrate-vitamin d3 96098678349 Radha Carr MA FLUOXETINE HCL 20 MG CAPS Take 1 capsule by mouth twice a day 10/22 fluoxetine 33133266497 Michael Bang APRN MIRTAZAPINE 45 MG TABS Take 1 tablet by mouth every night 10/22 mirtazapine 39116831500 Michael Bang APRN CARVEDILOL 25 MG TABS TAKE ONE TABLET BY MOUTH TWICE A DAY 08/25 carvedilol 77290777418 Jennifer Aguero 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 CARVEDILOL 25 MG TABS Take 1 tablet by mouth twice a day TAKE ONE TABLET BY MOUTH TWICE A DAY carvedilol 03150908982 Salome Moya 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 CARVEDILOL 25 MG TABS TAKE ONE TABLET BY MOUTH TWICE A DAY carvedilol 69881616859 Olga Reena DO LISINOPRIL 2.5 MG TABS Take 1 tablet by mouth once a day lisinopril 34888707825 Olga Reena DO calcium citrate-vitamin D3 250 mg-5 mcg (200 unit) tablet Take 1 tablet by mouth once a day calcium citrate-vitamin d3 32482946770 Radha Carr MA VITAMIN C 250 MG TABS Take 1 tablet by mouth single dose ascorbic acid (vitamin c) 76354350765 Radha Carr MA CARVEDILOL 25 MG TABS TAKE ONE TABLET BY MOUTH TWICE A DAY 07/28 carvedilol 79821511368 Jennifer Aguero APRN LISINOPRIL 2.5 MG TABS Take 1 tablet by mouth once a day lisinopril 46846183869 Jennifer Laci BLANKENSHIPN MIRTAZAPINE 45 MG TABS Take 1 tablet by mouth every night mirtazapine 07651791770 Shalonda MARTINEZ CARVEDILOL 25 MG TABS Take 1 tablet by mouth twice a day 11/18 carvedilol 01821613694 Jennifer Aguero APRN VITAMIN D 50 MCG (2000 UT) TABS Take 1 tablet by mouth once a day cholecalciferol (vitamin d3) 99443222636 Jennifer Aguero APRN FLUOXETINE HCL 20 MG CAPS Take 1 capsule by mouth twice a day fluoxetine 98868669543 Shalonda MARTINEZ ASPIRIN EC 81 MG TBEC Take 1 tablet by mouth once a day aspirin 86262092028 Jennifer Laci BLANKENSHIPN KEPPRA 750 MG TABS Take 1 tablet by mouth twice a day levetiracetam 13807803989 Jennifer Gregoriojay 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 CARVEDILOL 25 MG TABS TAKE ONE TABLET BY MOUTH TWICE A DAY carvedilol 90693359687 Olga Reena DO MIRTAZAPINE 30 MG TABS Take 1 at bedtime MIRTAZAPINE 88787106535 Shaila Lopez MA MIRTAZAPINE 45 MG TABS Take 1 at bedtime. Please disregard rx for 30 mg. MIRTAZAPINE 50689083543 Shalonda MARTINEZ FLUOXETINE HCL 20 MG CAPS TAKE ONE CAPSULE BY MOUTH TWICE A DAY FLUOXETINE HCL 86444305394 Shalonda MARTINEZ MEGESTROL ACETATE 20 MG TABS take one tablet by mouth twice a day 0 MEGESTROL ACETATE 28131461190 Emma Nieto RMA PROZAC 20 MG CAPS Take 1 twice a day FLUOXETINE HCL 37784299003 Shalonda MARTINEZ LISINOPRIL 2.5 MG TABS TAKE ONE TABLET BY MOUTH DAILY LISINOPRIL 22795786125 Olga Reena DO KEPPRA 750 MG TABS TAKE ONE TABLET BY MOUTH TWICE A DAY LEVETIRACETAM 28922674911 Kimberly Jean APRN PROZAC 20 MG CAPS TAKE 1 CAPSULE BY MOUTH EVERY MORNINGfor 7 days then increase to 2 daily. FLUOXETINE HCL 03596876377 Shalonda MARTINEZ PAROXETINE HCL 40 MG TABS TAKE 1 TABLET BY MOUTH ONCE A DAY 08/13 PAROXETINE HCL 43610226650 Radha Carr MA MIRTAZAPINE 30 MG TABS Take 1 at bedtime MIRTAZAPINE 79833460907 Shalonda MARTINEZ VITAMIN D 50 MCG (1999 UT) TABS TAKE 1 TABLET BY MOUTH ONCE A DAY CHOLECALCIFEROL 60725334613 Kimberly Jean APRN TIZANIDINE HCL 4 MG CAPS Take 1 tablet by mouth daily 12/12 TIZANIDINE HCL 99412651802 Cain Patel MD BACLOFEN 10 MG TABS TAKE 1 TABLET 2 TIMES DAILY NEEDED FOR MUSCLES 12/12 BACLOFEN 41724245026 Cain Patel MD MIRTAZAPINE 45 MG TABLET TAKE ONE TABLET BY MOUTH EVERY NIGHT AT BEDTIME MIRTAZAPINE 85354799508 Shalonda MARTINEZ KEPPRA 750 MG TABS TAKE ONE TABLET BY MOUTH TWICE A DAY LEVETIRACETAM 48955414551 Kimberly Bishop [place] LISINOPRIL 2.5 MG TABS TAKE ONE TABLET BY MOUTH DAILY LISINOPRIL 89201632255 Kimberly Hurtadobing [place] CARVEDILOL 25 MG TABS TAKE ONE TABLET BY MOUTH TWICE A DAY CARVEDILOL 97764564177 Nabeel Donovan MARISA MEGESTROL ACETATE 20 MG TABS take one tablet by mouth twice a day MEGESTROL ACETATE 00233307971 Shalonda MARTINEZ TIZANIDINE HCL 4 MG CAPS Take 1 tablet by mouth daily TIZANIDINE HCL 94556400821 Cain Patel MD INDOMETHACIN 25 MG CAPS TAKE 2 TABLETS BY MOUTH EVERY 8 HOURS x 5-7 DAYS NEEDED 07/25 INDOMETHACIN 46777902608 Madina Munoz APRN BACLOFEN 10 MG TABS TAKE 1 TABLET 2 TIMES DAILY NEEDED FOR MUSCLES BACLOFEN 98927826639 Cain Patel MD ASPIR-LOW 81 MG ORAL TABLET DELAYED RELEASE TAKE 1 TABLET BY MOUTH 1 TIME A DAY ASPIRIN 66103462740 Cain Patel MD INDOMETHACIN 25 MG CAPS TAKE 2 TABLETS BY MOUTH EVERY 8 HOURS x 5-7 DAYS NEEDED INDOMETHACIN 00908379057 Madina Munoz APRN CHANTIX CONTINUING MONTH MICHELLE 1 MG TABS TAKE 1 TABLET TWICE A DAY 12/01 VARENICLINE TARTRATE [id number] Cristela Teresa APRN KLONOPIN 1 MG TABS TAKE 1 TABLET BY MOUTH 2 TIMES A DAY FOR PANIC/ANXIETY 09/08 CLONAZEPAM [id number] Cristela Teresa APRN REMERON 45 MG ORAL TABLET TAKE 1 TABLET AT BEDTIME MIRTAZAPINE [id number] Shalonda Ankit Karma MARTINEZ KLONOPIN 1 MG TABS TAKE 1 TABLET BY MOUTH 2 TIMES A DAY FOR PANIC/ANXIETY CLONAZEPAM [id number] Cristela Teresa APRN PAROXETINE HCL 40 MG TABS TAKE 1 TABLET BY MOUTH ONCE A DAY 07/09 PAROXETINE HCL [id number] Cristela Brii CUNNINGHAM HYDROXYZINE HCL 25 MG TABS TAKE 1 TABLET BY MOUTH EVERY 8 HOURS NEEDED FOR ANXIETY 07/09 HYDROXYZINE HCL [id number] 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 Teresa 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 PAROXETINE HCL 40 MG TABS TAKE 1 TABLET BY MOUTH ONCE A DAY PAROXETINE HCL [id number] Shalonda Parada [employer] CHANTIX STARTING MONTH MICHELLE 0.5 MG X 11 & 1 MG X 42 ORAL TABLET USE DIRECTED 07/18 VARENICLINE TARTRATE [id number] Madina Munoz APRN CHANTIX CONTINUING MONTH MICHELLE 1 MG TABS TAKE 1 TABLET TWICE A DAY VARENICLINE TARTRATE [id number] Madina Munoz APRN HYDROXYZINE HCL 25 MG TABS TAKE 1 TABLET BY MOUTH EVERY 8 HOURS NEEDED FOR ANXIETY HYDROXYZINE HCL [id number] Madina Munoz APRN PANTOPRAZOLE SODIUM 40 MG TBEC TAKE 1 BY MOUTH EACH DAY PANTOPRAZOLE SODIUM 76212616007 Madina Munoz APRN DICLOFENAC SODIUM 75 MG TBEC TAKE 1 TAB BY MOUTH 2 TIMES A DAY NEEDED FOR PAIN DICLOFENAC SODIUM 09154955161 Madina Munoz APRN CIPROFLOXACIN HCL 500 MG TABS TAKE 1 TABLET BY MOUTH 2 TIMES A DAY x 5 days CIPROFLOXACIN HCL 26613738891 Madina Munoz APRN KLONOPIN 1 MG TABS TAKE 1 TABLET BY MOUTH 3 TIMES A DAY FOR PANIC/ANXIETY CLONAZEPAM 59954867192 Cristela Teresa APRN CHANTIX STARTING MONTH MICHELLE 0.5 MG X 11 & 1 MG X 42 ORAL TABLET USE DIRECTED 07/18 VARENICLINE TARTRATE 57716055439 Madina Munoz APRN CHANTIX CONTINUING MONTH MICHELLE 1 MG TABS TAKE 1 TABLET TWICE A DAY VARENICLINE TARTRATE 34363653799 Madina Munoz APRN KLONOPIN 1 MG TABS TAKE 1 TABLET BY MOUTH 3 TIMES A DAY FOR PANIC/ANXIETY CLONAZEPAM 42161922982 Cristela Teresa APRN REMERON 30 MG TABS TAKE 1 TABLET BY MOUTH AT BEDTIME MIRTAZAPINE 85595413913 Cristela Teresa APRN KLONOPIN 1 MG TABS TAKE 1 TABLET BY MOUTH 2 TIMES A DAY FOR PANIC/ANXIETY CLONAZEPAM 09291330799 Cristela Teresa 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 HYDROXYZINE HCL 25 MG TABS 1 tab by mouth every 8 hours as needed for anxiety. 03/04 HYDROXYZINE HCL 34437536294 Cristela Teresa APRN QUETIAPINE FUMARATE 200 MG TABS ONE PO QHS. 03/04 QUETIAPINE FUMARATE 66460003971 Cristela Teresa APRN KEPPRA 750 MG TABS 1 tab by mouth twice daily LEVETIRACETAM 29189684413 Ye Pringle DO PAROXETINE HCL 40 MG TABS TAKE 1 TABLET BY MOUTH ONCE A DAY PAROXETINE HCL 16964447639 Cristela Teresa APRN PHENYTOIN SODIUM EXTENDED 100 MG CAPS 1 cap by mouth every 8 hours 07/11 PHENYTOIN SODIUM EXTENDED 44482164422 Merlin Hernandez MD ASPIR-LOW 81 MG ORAL TABLET DELAYED RELEASE TAKE 1 TABLET BY MOUTH 1 TIME A DAY ASPIRIN 02190558766 Madina Alexander 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 DICLOFENAC SODIUM 75 MG TBEC TAKE 1 TAB BY MOUTH 2 TIMES A DAY NEEDED FOR PAIN DICLOFENAC SODIUM 34728280624 Merlin Hernandez MD HYDROXYZINE HCL 25 MG TABS 1 tab by mouth every 8 hours as needed for anxiety. HYDROXYZINE HCL 89360064890 Merlin Hernandez MD FLUOXETINE HCL 40 MG CAPS 1 cap by mouth daily FLUOXETINE HCL 63248730901 Merlin Hernandez MD TRAZODONE HCL 50 MG TABS 1 tab by mouth nightly as needed for insomnia. 0 TRAZODONE HCL 68611934637 Génesis Sahu RN QUETIAPINE FUMARATE 200 MG TABS ONE PO QHS. QUETIAPINE FUMARATE 75428079645 Merlin Hernandez MD TRAZODONE HCL 50 MG TABS 1 tab by mouth nightly as needed for insomnia. TRAZODONE HCL 90102928770 Merlin Hernandez MD SEROQUEL 200 MG TABS TAKE 1 TABLET BY MOUTH EVERY NIGHT AT BEDTIME QUETIAPINE FUMARATE 81964163224 Merlin Hernandez MD PHENYTOIN SODIUM EXTENDED 100 MG CAPS 1 cap by mouth every 8 hours PHENYTOIN SODIUM EXTENDED 96541019202 Merlin Hernandez MD LISINOPRIL 2.5 MG TABS TAKE 1 TABLET BY MOUTH 1 TIME A DAY LISINOPRIL 47966603036 Ye Pringle DO KEPPRA 750 MG TABS 2 tabs by mouth twice daily LEVETIRACETAM 18647801496 Merlin Hernandez MD PROZAC 20 MG CAPS TAKE 1 BY MOUTH EVERY MORNING FLUOXETINE HCL 98127295180 Merlin Hernandez MD CARVEDILOL 25 MG TABS TAKE 1 TABLET BY MOUTH 2 TIMES A DAY CARVEDILOL 00473235751 Ye Pringle DO ASPIR-LOW 81 MG ORAL TABLET DELAYED RELEASE TAKE 1 TABLET BY MOUTH 1 TIME A DAY ASPIRIN 58943282781 Merlin Hernandez MD PANTOPRAZOLE SODIUM 40 MG TBEC TAKE 1 BY MOUTH EACH DAY PANTOPRAZOLE SODIUM 37205819694 Merlin Hernandez MD CIPROFLOXACIN HCL 500 MG TABS TAKE 1 TABLET BY MOUTH 2 TIMES A DAY x 5 days CIPROFLOXACIN HCL 33274764329 Merlin Hernandez MD PROMETHAZINE HCL 12.5 MG TABS TAKE 1 BY MOUTH EVERY 6 HRS NEEDED FOR NAUSEA/VOMITING 201408/26 PROMETHAZINE HCL 67251913598 Merlin Hernandez MD DICLOFENAC SODIUM 75 MG TBEC TAKE 1 TAB BY MOUTH 2 TIMES A DAY NEEDED FOR PAIN DICLOFENAC SODIUM 80588824400 Madina Munoz APRN Medications Administered No information [...] in Blood ABS NEUTROPH 4729 CELLS/UL 10*3/uL 4451-8482 N Neutrophils [#/volume] in Blood Lab Report: [...] CCC & HP forms LABS ORDERED Accucheck 05626 Laboratory tests ordered BG RANDOM 96 mg/dL Glucose [Mass/volume] in Blood Plan of Care Type Date Detail Referral [facility] Neurology Michael Castellano-Neurology [facility], [address] , [place], [address] Referral Neurology Referr corazon [facility] [place] [facility], [address], [place], [address] Referral Cardiology Gabi Rebeca [facility] [place] [facility] [place], [address], [place], [address] Referral Gastroenterology Referral [facility], [address], [place], [address] Pending order Accucheck 06944 Pending order T1 CBC no diff Pending [...] Pending order Uric Acid Pending order SNOMED-CT: 72318 3000 Smoking Cessation Counseling Pending order SNOMED-CT: 34610 3260824022 Current Medications Documented Pending order Medication Recon ciliation Pending order 70782 ESTAB efoc /efoc/low Pending order Medication Recon ciliation Pending order SNOMED-CT: 78233 [id number] Current Medications Documented Pending order Urine Drug Scree n w/o Confirmation Pending Order exclud ed from report: Pending order Medication Recon ciliation Pending order 60601 ESTAB efoc /efoc/low Pending order Urine Drug Scree n w/o Confirmation Pending order 91372 ESTAB efoc /efoc/low Pending order 02514 ESTAB efoc /efoc/low Pending order SNOMED-CT: 64199 3000 Smoking Cessation Counseling Pending order SNOMED-CT: 89368 4053564015 Current Medications Documented Pending order 65432 ESTAB efoc /efoc/low Pending order Urine Drug Scree n w/o Confirmation Pending order Psych Dx Eval WI TH E&M -MD/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 Only Pending order SNOMED-CT: 40459 0366730063 Current Medications Documented Pending order Phenytoin (Jamshid [...] Code Procedure Name Date Entry Date [facility]-[id number] Medication Reconciliation CPT-3075F Most recent systolic blood pressure 130-139 mm Hg CPT-3079F Most recent diastoli c blood pressure 80-89 mm Hg CPT-0513F Elevated blood press ure plan of care documented CPT-1159F Medication list docu mented in medical record CPT-1160F Review of all medica tions by a prescribing practitioner 4004F Patient screened for tobacco use and received tobacco cessation intervention SCT-[id number] Current every day smoker 21/07/15 SCT-[id number] Smoking cessation education CPT-80686 Accucheck 35763 SCT-[id number] Medication Reconciliation CPT-3074F Most recent systolic blood pressure <130 mm Hg CPT-3079F Most recent diastoli c blood pressure 80-89 mm Hg CPT-1159F Medication list docu mented in medical record CPT-1160F Review of all medica tions by a prescribing practitioner SCT-286020543 Current every day smoker 19/04/15 4004F Patient screened for tobacco use and received tobacco cessation intervention SCT-[id number] Smoking cessation education [facility] 1759 T1 CBC no diff [facility] 27115 T1 CMP [facility] 496 T1 HGBA1c [facility] 20396 T1 Lipid Panel [facility] 54856 T1 TSH reflex to free T4 10/04/14 15400 Fluzone Quadrivalent CPT-36990 IMADM >18YR IM ROUTE 1ST VAC/TOXOID 04/05 CPT-1159F Medication list docu mented in medical record SCT-[id number] Medication Reconciliation CPT-3075F Most recent systolic blood pressure 130-139 mm Hg CPT-3079F Most recent diastoli c blood pressure 80-89 mm Hg CPT-1159F Medication list docu mented in medical record CPT-1160F Review of all medica tions by a prescribing practitioner 4004F Patient screened for tobacco use and received tobacco cessation intervention SCT-897004111 Current every day smoker 20 17/01/18 SCT-479720523 Smoking cessation education SCT-[id number] Medication Reconciliation CPT-3075F Most recent systolic blood pressure 130-139 mm Hg 4004F Patient screened for tobacco use and received tobacco cessation intervention [facility] [place]-Neurolog y SCT-[id number] Medication Reconciliation 4004F Patient screened for tobacco use and received tobacco cessation intervention CPT-3077F Most recent systolic blood pressure >=140 mm Hg CPT-1159F Medication list docu mented in medical record CPT-1160F Review of all medica tions by a prescribing practitioner X-Ray Hand Right X-Ray Hand Right [facility] 1759 T1 CBC no diff [facility] 45775 T1 CMP [facility] 496 T1 HGBA1c [facility] 57264 T1 Lipid Panel [facility] 44354 T1 TSH reflex to free T4 10/01/03 [facility] 24112 T2 Vitamin D 25 Hydroxy 2023 4004F Patient screened for tobacco use and received tobacco cessation intervention CPT-3075F Most recent systolic blood pressure 130-139 mm Hg SCT-[id number] Medication Reconciliation SCT-[id number] Medication Reconciliation CPT-3074F Most recent systolic blood pressure <130 mm Hg CPT-3078F Most recent diastoli c blood pressure <80 mm Hg SCT-092569273238658 Medication Reconciliation 4004F Patient screened for tobacco use and received tobacco cessation intervention CPT-3074F Most recent systolic blood pressure <130 mm Hg CPT-3078F Most recent diastoli c blood pressure <80 mm Hg SCT-[id number] Medication Reconciliation CPT-3074F Most recent systolic blood pressure <130 mm Hg CPT-3078F Most recent diastoli c blood pressure <80 mm Hg CPT-1159F Medication list docu mented in medical record CPT-1160F Review of all medica tions by a prescribing practitioner [facility] 55755 T1 CMP Other [facility] Other - Patient Pay [facility] 6399 T1 CBC with diff [facility] 04983 T1 TSH reflex to free T4 09/01/23 [facility]-[id number] Medication Reconciliation 4004F Patient screened for tobacco use and received tobacco cessation intervention CPT-3074F Most recent systolic blood pressure <130 mm Hg CPT-3079F Most recent diastoli c blood pressure 80-89 mm Hg Other [facility] Other - Patient Pay 4004F Patient screened for tobacco use and received tobacco cessation intervention SCT-[id number] Medication Reconciliation CPT-3074F Most recent systolic blood pressure <130 mm Hg CPT-3078F Most recent diastoli c blood pressure <80 mm Hg CPT-1159F Medication list docu mented in medical record CPT-1160F Review of all medica tions by a prescribing practitioner [facility] 6399 T1 CBC with diff [facility] 927 T1 B12 [facility] 03036 T1 CMP [facility] 496 T1 HGBA1c [facility] 14954 T1 Lipid Panel [facility] 20413 T1 TSH reflex to free T4 08/29/23 [facility] 97434 T2 Vitamin D 25 Hydroxy 2022 4004F Patient screened for tobacco use and received tobacco cessation intervention CPT-3075F Most recent systolic blood pressure 130-139 mm Hg CPT-3079F Most recent diastoli c blood pressure 80-89 mm Hg SCT-[id number] Medication Reconciliation SCT-397811963107568 Medication Reconciliation CPT-01158 Pfizer COVID-19 Saran -sucrose 30 mcg/0.3 mL Booster (servin cap >=12 y) CPT-0054A Pfizer COVID-19 Saran -sucrose Booster Immunization admin CPT-3074F Most recent systolic blood pressure <130 mm Hg CPT-3079F Most recent diastoli c blood pressure 80-89 mm Hg SCT-[id number] Medication Reconciliation 04275 Fluzone Quadrivalent CPT-28169 IMADM >18YR IM ROUTE 1ST VAC/TOXOID 04/12 CPT II 4004F Patient screened for tobacco use and received tobacco cessation intervention SCT-995007025779118 Medication Reconciliation CPT-3074F Most recent systolic blood pressure <130 mm Hg CPT-3079F Most recent diastoli c blood pressure 80-89 mm Hg CPT-1159F Medication list docu mented in medical record CPT-1160F Review of all medica tions by a prescribing practitioner [facility]-[id number] Medication Reconciliation CPT II 4004F Patient screened [...] diastoli c blood pressure 80-89 mm Hg [facility]-[id number] Medication Reconciliation CPT II 4004F Patient screened for tobacco use and received tobacco cessation intervention CPT-3074F Most recent systolic blood pressure <130 mm Hg CPT-3079F Most recent diastoli c blood pressure 80-89 mm Hg CPT-1159F Medication list docu mented in medical record CPT-1160F Review of all medica tions by a prescribing practitioner [facility] 6399 T1 CBC with diff [facility] 47290 T1 CMP [facility] 66329 T1 TSH reflex to free T4 202 07/31/25 [facility] 79417 T1 Lipid Panel [facility] 76067 T2 Vitamin D 25 Dihydroxy 20 16/10/25 SCT-[id number] Medication Reconciliation SCT-710717054233896 Medication Reconciliation 84265 Fluzone Quadrivalent CPT-75614 IMADM >18YR IM ROUTE 1ST VAC/TOXOID 04/21 CPT-3074F Most recent systolic blood pressure <130 mm Hg CPT-3078F Most recent diastoli c blood pressure <80 mm Hg SCT-404786209878093 Medication Reconciliation CPT-3075F Most recent systolic blood pressure 130-139 mm Hg CPT-3077F Most recent systolic blood pressure >=140 mm Hg CPT-3078F Most recent diastoli c blood pressure <80 mm Hg SCT-169729224177624 Medication Reconciliation [facility] 6399 T1 CBC with diff [facility] 94272 T1 CMP [facility] 496 T1 HGBA1c [facility] 47066 T1 Lipid Panel [facility] 91020 T1 TSH reflex to free T4 06/30/26 CPT-3075F Most recent systolic blood pressure 130-139 mm Hg CPT-3079F Most recent diastoli c blood pressure 80-89 mm Hg CPT-1159F Medication list docu mented in medical record CPT-3075F Most recent systolic blood pressure 130-139 mm Hg CPT-3075F Most recent systolic blood pressure 130-139 mm Hg SCT-494324718343392 Medication Reconciliation SCT-103013890741949 Medication Reconciliation CPT-3075F Most recent systolic blood pressure 130-139 mm Hg CPT-3079F Most recent diastoli c blood pressure 80-89 mm Hg 98977 Flulaval Quadrivalent CPT-80302 IMADM >18YR IM ROUTE 1ST VAC/TOXOID 04/22 CPT-1159F Medication list docu mented in medical record CPT-1160F Review of all medica tions by a prescribing practitioner CPT-3077F Most recent systolic blood pressure >=140 mm Hg SCT-109872460332225 Medication Reconciliation SCT-145040337372308 Medication Reconciliation [facility] 6399 T1 CBC with diff [facility] 84636 T1 CMP [facility] 09619 T1 Lipid Panel [facility] 42666 T1 TSH reflex to free T4 202 [facility] 59391 T2 HGB Electrophoresis 10/24 [facility] 06481 T2 Vitamin D 25 Dihydroxy 20 14/10/29 SCT-[id number] Medication Reconciliation CPT-3077F Most recent systolic blood pressure >=140 mm Hg CPT-3078F Most recent diastoli c blood pressure <80 mm Hg CPT-3075F Most recent systolic blood pressure 130-139 mm Hg SCT-399272746901815 Medication Reconciliation CPT-43314 Fluzone Quadrivalent Preservative Free prefilled syringe (36 mos +) CPT-98246 IMADM >18YR IM ROUTE 1ST VAC/TOXOID 04/13 [facility] 50947 T2 Vitamin D 25 Hydroxy 2018 SCT-[id number] Medication Reconciliation CPT-06425 Venipuncture 09207 4 CPT-3077F Most recent systolic blood pressure >=140 mm Hg SCT-465107408 SNOMED-CT: 290483275 Smoking Cessation Counseling SCT-209490525849196 SNOMED-CT: 458978293 545847 Current Medications Documented [facility] 34747 T1 CMP CPT-3077F Most recent systolic blood pressure >=140 mm Hg SCT-439515447832610 Medication Reconciliation SCT-412251086826981 Medication Reconciliation CPT-3075F Most recent systolic blood pressure 130-139 mm Hg CPT-3078F Most recent diastoli c blood pressure <80 mm Hg CPT-3074F Most recent systolic blood pressure <130 mm Hg CPT-3079F Most recent diastoli c blood pressure 80-89 mm Hg CPT-3077F Most recent systolic blood pressure >=140 mm Hg SCT-158659634519189 Medication Reconciliation SCT-130222028255019 Medication Reconciliation CPT-3075F Most recent systolic blood pressure 130-139 mm Hg SCT-955186344242548 Medication Reconciliation CPT-40444 Fluzone Quadrivalent Preservative Free prefilled syringe (36 mos +) CPT-95896 IMADM >18YR IM ROUTE 1ST VAC/TOXOID 06/12 CPT-3075F Most recent systolic blood pressure 130-139 mm Hg CPT-3079F Most recent diastoli c blood pressure 80-89 mm Hg CPT-3074F Most recent systolic blood pressure <130 mm Hg CPT-3074F Most recent systolic blood pressure <130 mm Hg SCT-791146662173749 Medication Reconciliation SCT-867535952806459 Medication Reconciliation CPT-3074F Most recent systolic blood pressure <130 mm Hg CPT-3079F Most recent diastoli c blood pressure 80-89 mm Hg CPT-3074F Most recent systolic blood pressure <130 mm Hg CPT-3079F Most recent diastoli c blood pressure 80-89 mm Hg SCT-641155411782121 Medication Reconciliation CPT-3075F Most recent systolic blood pressure 130-139 mm Hg CPT-3079F Most recent diastoli c blood pressure 80-89 mm Hg SCT-958807209947926 Medication Reconciliation [facility] 6399 T1 CBC with diff [facility] 91311 T1 CMP [facility] 69293 T1 Lipid Panel [facility] 65844 T2 Vitamin D 25 Hydroxy 2017 CPT-3074F Most recent systolic blood pressure <130 mm Hg CPT-3078F Most recent diastoli c blood pressure <80 mm Hg SCT-491657148591609 Medication Reconciliation SCT-022515130868950 Medication Reconciliation CPT-3074F Most recent systolic blood pressure <130 mm Hg CPT-3078F Most recent diastoli c blood pressure <80 mm Hg CPT-3074F Most recent systolic blood pressure <130 mm Hg CPT-3079F Most recent diastoli c blood pressure 80-89 mm Hg SCT-142325381218385 Medication Reconciliation SCT-581235580888773 Medication Reconciliation CPT-3074F Most recent systolic blood pressure <130 mm Hg CPT-3079F Most recent diastoli c blood pressure 80-89 mm Hg SCT-649119561482884 Medication Reconciliation SCT-523327686158247 Medication Reconciliation SCT-568736226733195 Medication Reconciliation SCT-795098691894075 SNOMED-CT: 266502076 197370 Current Medications Documented CPT-82198 Fluzone Quadrivalent Preservative Free Intramuscular Suspension 0.5 ML CPT-86705 IMADM >18YR IM ROUTE 1ST VAC/TOXOID 05/25 07697 [facility] Test # BMP 9 67681 [facility] Test # Hepatitic Function Panel 72860 [facility] Test # Lipid Panel 9 [facility]-[id number] Giving encouragement to exercise SCT-604893964 Lifestyle education regarding diet 03/25 SCT-830591706074661 Medication Reconciliation SCT-194609983755708 Medication Reconciliation SCT-907811899 SNOMED-CT: 788887594 Smoking Cessation Counseling SCT-054577034061075 SNOMED-CT: 792889440 392506 Current Medications Documented X-Ray Foot X-Ray Foot 905 [facility] Test # Uric Acid SCT-905029259108136 Medication Reconciliation SCT-598571881732364 Medication Reconciliation SCT-288552073860744 SNOMED-CT: 671112109 770244 Current Medications Documented 62366 [facility] Test # Urine Drug Screen w/o Confirmation SCT-230432553476635 Medication Reconciliation SCT-179651289 SNOMED-CT: 867688306 Smoking Cessation Counseling SCT-303618300488263 SNOMED-CT: 199622389 579002 Current Medications Documented 35487 [facility] Test # Urine Drug Screen w/o Confirmation CPT-79524 Psych Dx Eval WITH E&M -MD/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 Only 2014 SCT-476277606742322 SNOMED-CT: 611212938 703674 Current Medications Documented 927 [facility] Test # B12 466 [facility] Test # Folic Acid 713 [facility] # Phenytoin (Dilantin) 201 10/04/05 Other [facility] Other 6399 [facility] Test # CBC with diff 6 07032 [facility] Test # BMP 6 33476 [facility] # Hepatitic Function Panel 496 [facility] # HGBA1c 57953 [facility] Test # Lipid Panel 6 70059 [facility] Test # TSH reflex to free T4 SEP NEURO [facility] Neurology Referral S EP Neurology [place] [facility] [place] [place] [facility] [facility] Gastroenterology Re [facility] [place] Physicians ct abd pel w edg CT Abdomen and Pelvis w contrast 2013 ECHO ECHO 6399 [facility] Test # CBC with diff 7 72151 [facility] # BMP 7 04476 [facility] # Hepatitic Function Panel 38689 [facility] # Acute Hepatits Panel 2 01028 [facility] # HIV Antibody -consent required 2013 8847 [facility] Test # Protime INR 97683 [facility] Test # TSH reflex to free [...]
--- NOTE | 2025-05-27 10:15 | CA_ITS ---
APPROVED REPORT EXAM: Comprehensive 2D, Doppler, and color-flow Echocardiogram with contrast Forensics Analyst: Alejandra Pichardo CRT Ht: 6 ft 3 in Wt: 160lbs BSA: 2.00 BP: 125/86 mmHg Indications: Abnormal ECG, Pre-Op assessment, MV ring 2014 due to IV drug use Echo Enhancing Agent Indication: Endocardial border delineation Agent(s) / Amount(s) Used: Definity 2 cc Comments: Definity given to R/O Apical thrombus 2D Dimensions LA Volume 24.00 mL LA Volume Index 11.80 mL/m2 (M/F) 16-34 M-Mode Dimensions RVDd 2.10 cm (0.9-2.6) LA Diam 2.74 cm (1.9-4.0) LVDd 4.96 cm (3.5-5.7) LVDs 3.64 cm (3.5-5.7) IVSd 1.54 cm (0.6-1.1) PWd 0.90 cm (0.6-1.1) EF (Teich) 51.90% FS 26.60% EDV (Teich) 116.10 mL ESV (Teich) 55.90 mL LV Diastology E Decel Time 317 (160-240 msec) E/A Ratio 1.48 Aortic Valve AO Peak GR. 3.80 mmHg Mitral Valve MV A Velocity 57.0 (40-130 cm/s) E/A Ratio 1.48 Pulmonary Valve PV Peak Velocity 140.0 (50-150 cm/s) Tricuspid Valve TR P. Velocity 216.00 cm/s RAP Estimate 10.00 mmHg RVSP 28.60 mmHg Left Ventricle The left ventricle is normal size. Left ventricular systolic function is mildly reduced. There is increased left ventricular wall thickness. There is severe hypokinesis of the distal and apical LV villa. The left ventricular diastolic function is indeterminate. No left ventricle thrombus noted on this study. LVEF is 40-45% Right Ventricle The right ventricle is mildly dilated. The right ventricular systolic function is normal. Atria Left atrium is mildly dilated. Right atrium is mildly dilated. There is no color Doppler evidence of interatrial shunt. Aortic Valve The aortic valve is mildly thickened. There is no hemodynamically significant aortic valvular stenosis. No aortic regurgitation is present. Mitral Valve s/p MV annuloplasty ring. No evidence of mitral valve stenosis. Mild mitral regurgitation is present. Tricuspid Valve The tricuspid valve leaflets are thin and pliable. Trace tricuspid regurgitation. There is insufficient TR jet to estimate RVSP. Pulmonic Valve The pulmonary valve is grossly normal in structure. Trace pulmonic valve regurgitation is present. Great Vessels The aortic root is normal in size. The ascending aorta is mildly dilated, measuring 3.9 cm in diameter. IVC is normal in size and collapses >50% with inspiration. Pericardium There is no pericardial effusion. Other Information Study Quality: Fair Conclusion Mildly reduced LV systolic function (LVEF 40-45%). Severe hypokinesis of the distal and apical LV villa. Mild RV dilation with normal RV function. Mild biatrial dilation. s/p MV annuloplasty ring. Mild MR. Mild TR. The ascending aorta is mildly dilated, measuring 3.9 cm in diameter. Correlation with new or recent CTA chest is suggested. Electronically signed by : Sara Erickson MD 05/27/2025 22:05:39
[2025-05-27] MEDS: DEFINITY US ECHO CONTRAST 2ML INJ 2 MG IV (11:11)
== END 2025-05-27 23:59 | disposition home or self-care (01) ==
LOC: RT 09:39
PROVIDERS: PCP Nurse Practitioner Family; Visit Provider Internal Medicine
DX: Z01.810 Encounter for preprocedural cardiovascular examination (principal); I08.1 Rheumatic disorders of both mitral and tricuspid valves; I77.810 Thoracic aortic ectasia; R94.31 Abnormal electrocardiogram [ECG] [EKG]; R93.1 Abnormal findings on diagnostic imaging of heart and coronary circulation; Z86.79 Personal history of other diseases of the circulatory system; Z98.890 Other specified postprocedural states
CPT/HCPCS: 93306; Q9957